=== PATIENT | male | born 1960 ===

== ENCOUNTER 2016-09-30 19:20 | Emergency (ER) | payer OTHER ==
[2016-09-30 19:35] VITALS: TEMP 98.5; O2SAT 100
--- NOTE | 2016-09-30 20:19 | C.PDOC ---
History Of Present Illness 56 y/o male presents to ED with complaints of left shoulder pain that radiates to the neck and is constant for 6 months. Patient reports he fell off stairs six months ago and landed on left shoulder and pain started then and only worsened. Patient states he has not seen a physician for pain because he thought it wasn't serious, but for 1 month pain has increased, not allowing him to sleep. pt not taking naything at home for pain. no numbness or tingling. Time Seen by Provider: 09/30/16 19:43 Chief Complaint (Nursing): Upper Extremity Problem/Injury History Per: Patient History/Exam Limitations: no limitations Onset/Duration Of Symptoms: Days Current Symptoms Are (Timing): Still Present Past Medical History Reviewed: Historical Data, Nursing Documentation, Vital Signs Vital Signs: Last Vital Signs Temp 98.5 F 09/30/16 19:33 Pulse 76 09/30/16 22:05 Resp 18 09/30/16 22:05 BP 128/82 09/30/16 22:05 Pulse Ox 100 09/30/16 23:02 Family History: States: No Known Family Hx - Social History Hx Alcohol Use: Yes Hx Substance Use: No - Immunization History Hx Tetanus Toxoid Vaccination: No Hx Influenza Vaccination: No Hx Pneumococcal Vaccination: No Review Of Systems Constitutional: Negative for: Fever, Chills Cardiovascular: Negative for: Chest Pain Musculoskeletal: Positive for: Neck Pain, Shoulder Pain. Negative for: Back Pain Skin: Negative for: Rash Neurological: Negative for: Weakness, Numbness, Headache Physical Exam - Physical Exam Appears: Non-toxic, Other (uncomfortable) Skin: Normal Color, Warm Head: Atraumatic, Normacephalic Neck: Normal ROM, No Midline Cervical Tenderness Extremity: Tenderness (to proximal left shoulder and medial left elbow/medial epicondyle area), No Deformity, Other (Limited ROM, Unable to adduct and abduct left armpast breast height) Extremity: Left: Bony Point Tenderness (medial epicondyle) Pulses: Left Radial: Normal, Right Radial: Normal Neurological/Psych: Oriented x3, Normal Speech, Normal Cognition, Normal Sensation ED Course And Treatment O2 Sat by Pulse Oximetry: 100 (RA) Pulse Ox Interpretation: Normal Medical Decision Making Medical Decision Making: shoulder xray appear normal, questionable finding on left elbow. will d/c pt with ortho f/u and nsaids. Disposition Counseled Patient/Family Regarding: Diagnosis, Need For Followup, Rx Given - Disposition Referrals: Jairo Sánchez III, MD [Staff Provider] - Disposition: HOME/ ROUTINE Disposition Time: 22:10 Condition: STABLE Additional Instructions: Seguimiento en clnica mdica y ortopedia. Llame para un appoimtment. [place] ibuprofeno para el dolor si es necesario segn lo prescrito. Prescriptions: Ibuprofen [Motrin] 600 mg PO TID #30 tab Instructions: Rotator Cuff Injury (ED), Shoulder Sprain (ED) Forms: Gen Discharge Inst Setswana - Clinical Impression Clinical Impression: Chronic left shoulder pain - PA / [employer] / Resident Statement MD/DO has reviewed & agrees with the documentation as recorded. - Scribe Statement The provider has reviewed the documentation as recorded by the Scribdanni Cristobal All medical record entries made by the Scribe were at my direction and personally dictated by me. I have reviewed the chart and agree that the record accurately reflects my personal performance of the history, physical exam, medical decision making, and the department course for this patient. I have also personally directed, reviewed, and agree with the discharge instructions and disposition.
[2016-09-30 22:30] VITALS: BP 128/82; PULSE 76; RESP 18
--- NOTE | 2016-10-01 13:31 | RAD ---
Left shoulder three views History: Shoulder pain. Comparison: None available. Findings: Mild to moderate narrowing of the glenohumeral joint space. Moderate narrowing of the acromioclavicular joint space with subchondral sclerosis and bony hypertrophy. No evidence of acute displaced fracture or dislocation. Impression: Negative acute. If pain persists, consider MRI.
--- NOTE | 2016-10-01 13:38 | RAD ---
Left elbow three views History: Elbow pain. Comparison: None available. Findings: Productive change at the level of the olecranon process, indeterminate chronicity. Clinical correlation. Question small elbow joint effusion which raises concern for possible nondisplaced osseous injury. Mild spurring of the coronoid process. Impression: Productive change at the level of the olecranon process, indeterminate chronicity. Clinical correlation. Question small elbow joint effusion which raises concern for possible nondisplaced osseous injury. Mild spurring of the coronoid process. If pain persists, consider MRI.
== END 2016-09-30 22:20 | disposition home or self-care (01) ==
LOC: C.ER 19:20
DX: G89.29 Other chronic pain (principal); M25.512 Pain in left shoulder
CPT/HCPCS: 73030; 73080; 96372; 99283; J1885

== ENCOUNTER 2017-07-10 12:13 | Inpatient (IN) | payer OTHER ==
[2017-07-10] MEDS ORDERED: Sodium Chloride 0.9% 1,000 ML IV STA (13:19)
--- NOTE | 2017-07-10 13:21 | C.PDOC ---
History Of Present Illness 56 year old male, with PMHx of gastritis, presents to ED for evaluation of RLQ abdominal pain for the past week. Otherwise, denies n/v/d, back pain, dysuria, urinary frequency, hematuria, fever, chills, or any other complaints at this time. Time Seen by Provider: 07/10/17 13:09 Chief Complaint (Nursing): Abdominal Pain History Per: Patient History/Exam Limitations: no limitations Onset/Duration Of Symptoms: Days Current Symptoms Are (Timing): Still Present Location Of Pain/Discomfort: RLQ Quality Of Discomfort: "Pain" Past Medical History Reviewed: Historical Data, Nursing Documentation, Vital Signs Vital Signs: Last Vital Signs Temp 97.9 F 07/10/17 13:15 Pulse 45 L 07/10/17 16:09 Resp 16 07/10/17 16:09 BP 155/90 H 07/10/17 16:09 Pulse Ox 99 07/10/17 16:41 Family History: States: Unknown Family Hx - Social History Hx Alcohol Use: Yes Hx Substance Use: No - Immunization History Hx Tetanus Toxoid Vaccination: No Hx Influenza Vaccination: No Hx Pneumococcal Vaccination: No Review Of Systems Except As Marked, All Systems Reviewed And Found Negative. Constitutional: Negative for: Fever, Chills Gastrointestinal: Positive for: Abdominal Pain. Negative for: Nausea, Vomiting , Diarrhea, Constipation Genitourinary: Negative for: Dysuria, Frequency, Hematuria Musculoskeletal: Negative for: Back Pain Physical Exam - Physical Exam Additional Physical Exam Comments: Constitutional: No acute distress. Head: Normocephalic. Atraumatic. Eyes: PERRL. ENT: Moist mucous membranes. Neck: Supple. Cardiovascular: Regular rate. Radial pulse 2+ bilaterally. Chest: No tenderness. Respiratory: Clear to auscultation bilaterally. GI: Soft. Nondistended. RLQ tenderness with guarding. Back: No CVA tenderness. Musculoskeletal: No tenderness or swelling of extremities. Skin: No rash. Neurologic: Alert, no focal deficit. ED Course And Treatment - Laboratory Results Result Diagrams: 07/10/17 13:41 07/10/17 13:41 O2 Sat by Pulse Oximetry: 99 Pulse Ox Interpretation: Normal Medical Decision Making Medical Decision Making: Plan: Blood work Urinalysis Urine culture Morphine, IV fluids Reassess and disposition Abd & Pelvis CT: Impression: 1. At the level of the cecum, there is a large lobulated ovoid lesion measuring 5.4 x 3.8 x 5.7 centimeters demonstrating a Hounsfield unit attenuation of 23. This is of uncertain clinical etiology. This may represent a large mucocele of the appendix versus adenocarcinoma of the appendix versus carcinoid tumor of the appendix versus exophytic lesion off the cecum. Appendix is not distinctly visualized separate to this lesion at the level of the cecum. Clinical correlation. 2. 1.6 centimeter subpleural nodule/ lesion seen at the right lung base posteriorly. Clinical correlation. 3. Mild fatty infiltration of the liver. Punctate calcification within the right hepatic lobe. 4. Cholelithiasis. No gross gallbladder wall thickening. Clinical correlation. 5. 9 millimeter midpole low-attenuation lesion in the right kidney demonstrating a Hounsfield unit attenuation of 15, indeterminate, possibly a cyst. No gross calculi or hydronephrosis. 6. Upper pole rounded low-attenuation lesion in the left kidney measuring 7 millimeters demonstrating a Hounsfield unit attenuation of 33, indeterminate. 7. Prominent and heterogeneous prostate measuring up to 6 centimeters. 8. Rectal wall thickening. Underdistention and or mild thickening of the sigmoid colon and rectum. Redundant sigmoid colon. Clinical correlation. Dr. Tyler accepts patient to hospitalist service, will require further evaluation for further management. Disposition - Disposition Disposition: HOSPITALIZED Disposition Time: 17:00 Condition: GUARDED Forms: [facility] (Georgian) - Clinical Impression Clinical Impression: Right lower quadrant abdominal mass - Scribe Statement The provider has reviewed the documentation as recorded by the Scribdanni Tyler All medical record entries made by the Nainibdanni were at my direction and personally dictated by me. I have reviewed the chart and agree that the record accurately reflects my personal performance of the history, physical exam, medical decision making, and the department course for this patient. I have also personally directed, reviewed, and agree with the discharge instructions and disposition.
[2017-07-10] MEDS ORDERED: Morphine 4 MG/ML VIAL ONE ×2 (13:28→18:19)
[2017-07-10 13:50] LABS: BASO % 0.5 % (0.0-2.0); EOS # 0.2 K/uL (0.0-0.7); EOS % 3.5 % (0.0-4.0); HEMOGLOBIN 13.4 g/dL (12.0-18.0); LYMPH # 2.4 K/uL (1.0-4.3); LYMPH % 39.3 % (20.0-40.0); MEAN CELL VOLUME 84.1 fL (80.0-94.0); MEAN CORPUSCULAR HEMOGLOBIN 28.8 pg (27.0-31.0); MEAN CORPUSCULAR HGB CONC 34.3 g/dL (33.0-37.0); MEAN PLATELET VOLUME 8.3 fL (7.2-11.7); MONO # 0.5 K/uL (0.0-0.8); MONO % 8.4 % (0.0-10.0); NEUT % 48.3 % (50.0-75.0); RBC 4.64 Mil/uL (4.40-5.90); RED CELL DISTRIBUTION WIDTH 13.3 % (11.5-14.5); WHITE BLOOD COUNT 6.1 K/uL (4.8-10.8)
[2017-07-10 13:53] LABS: URINE BILIRUBIN NEGATIVE (NEGATIVE); URINE BLOOD NEGATIVE (NEGATIVE); URINE CLARITY Clear (Clear); URINE COLOR Yellow (YELLOW); URINE GLUCOSE (UA) NORMAL (Normal); URINE LEUKOCYTE ESTERASE NEG Leu/uL (Negative); URINE PROTEIN NEGATIVE (NEGATIVE); URINE UROBILINOGEN NORMAL mg/dL (0.2-1.0)
[2017-07-10 14:01] LABS: ALB/GLOB RATIO 0.9 (1.0-2.1); ALBUMIN 4.1 g/dL (3.5-5.0); CALCIUM 9.2 mg/dl (8.6-10.4); GFR AFRICAN-AMERICAN > 60; GFR NON-AFRICAN AMERICAN > 60; LIPASE 190 U/L (23-300)
[2017-07-10 14:02] LABS: ALT/SGPT 20 U/L (21-72); AST/SGOT 32 U/L (17-59); BLOOD UREA NITROGEN 12 mg/dL (9-20)
[2017-07-10] MEDS ORDERED: Iohexol 300 100 ML IJ ONE (14:14)
[2017-07-10] MEDS ORDERED: Iohexol 240 (50 ml) PO ONE (14:21)
[2017-07-10] MEDS ORDERED: Iohexol 240 (50 ml) ONE (14:27)
--- NOTE | 2017-07-10 16:28 | CT ---
CT abdomen and pelvis History: Right lower quadrant abdominal pain. Comparison: None available. Technique: Multiple contiguous axial images were performed through the abdomen and pelvis with the use of intravenous contrast. Subsequently, sagittal and coronal reformatted images were obtained. This CT exam was performed using one or more of the following dose reduction techniques: Automated exposure control, adjustment of the mA and/or kV according to patient size, and/or use of iterative reconstruction technique. Findings: 1.6 centimeter subpleural nodule/ lesion seen at the right lung base posteriorly. Clinical correlation. No pleural or pericardial effusion. Mild fatty infiltration of the liver. Punctate calcification within the right hepatic lobe. Cholelithiasis. No gross gallbladder wall thickening. Spleen is preserved. Adrenal glands are preserved. Pancreas is preserved. Upper abdominal bowel is preserved. Right kidney: 9 millimeter midpole low-attenuation lesion demonstrating a Hounsfield unit attenuation of 15, indeterminate, possibly a cyst. No gross calculi or hydronephrosis. Left Kidney: Upper pole rounded low-attenuation lesion measuring 7 millimeters demonstrating a Hounsfield unit attenuation of 33, indeterminate. Distended urinary bladder. Prominent and heterogeneous prostate measuring up to 6 centimeters. Rectal wall thickening. Underdistention and or mild thickening of the sigmoid colon and rectum. Redundant sigmoid colon. At the level of the cecum, there is a large lobulated ovoid lesion measuring 5.4 x 3.8 x 5.7 centimeters demonstrating a Hounsfield unit attenuation of 13. This is of uncertain clinical etiology. Few shotty para-aortic and inguinal lymph nodes. Punctate bone island in the left devin sacrum. Impression: 1. At the level of the cecum, there is a large lobulated ovoid lesion measuring 5.4 x 3.8 x 5.7 centimeters demonstrating a Hounsfield unit attenuation of 23. This is of uncertain clinical etiology. This may represent a large mucocele of the appendix versus adenocarcinoma of the appendix versus carcinoid tumor of the appendix versus exophytic lesion off the cecum. Appendix is not distinctly visualized separate to this lesion at the level of the cecum. Clinical correlation. 2. 1.6 centimeter subpleural nodule/ lesion seen at the right lung base posteriorly. Clinical correlation. 3. Mild fatty infiltration of the liver. Punctate calcification within the right hepatic lobe. 4. Cholelithiasis. No gross gallbladder wall thickening. Clinical correlation. 5. 9 millimeter midpole low-attenuation lesion in the right kidney demonstrating a Hounsfield unit attenuation of 15, indeterminate, possibly a cyst. No gross calculi or hydronephrosis. 6. Upper pole rounded low-attenuation lesion in the left kidney measuring 7 millimeters demonstrating a Hounsfield unit attenuation of 33, indeterminate. 7. Prominent and heterogeneous prostate measuring up to 6 centimeters. 8. Rectal wall thickening. Underdistention and or mild thickening of the sigmoid colon and rectum. Redundant sigmoid colon. Clinical correlation.
--- NOTE | 2017-07-10 21:36 | CP.PCM.HP ---
<GarcíaValorie - Last Filed: 07/10/17 23:21> History of Present Illness - History of Present Illness History of Present Illness: CC: abdominal pain 56 year old male with past medical history of gastritis presents to the ED today complains of right sided abdominal pain. Patient reports his abdominal first happened 3 months ago and it has been getting worse for the past 1 week. Patient describes the pain as dullness in quality and it is non- radiating. The pain is worse with palpation and exertion and he does not take any pain medication for it. Patient admits to loss of appetite and 4 pounds unintentional weight loss over the course 1 month. Patient also reports to have blood bowel movement started a few days ago. The toilet bowl becomes bright red after. Patient denies having fever, chills, headache, shortness of breath, chest pain, nausea, vomiting or diarrhea. Daughter Preeti Gonzales: [phone] PMD: none PMHx: gastritis PSHx: right ankle surgery 20+ years ago Allergy: none Social: denies tobacco, alcohol or other drug use Family Hx: noncontributory Home meds: none Present on Admission - Present on Admission Any Indicators Present on Admission: No Review of Systems - Constitutional Constitutional: As Per HPI, Weight Loss. absent: Chills, Fever - EENT Eyes: As Per HPI. absent: Blind Spots, Blurred Vision, Discharge Ears: As Per HPI. absent: Decreased Hearing, Dizziness Nose/Mouth/Throat: As Per HPI. absent: Nasal Discharge, Nasal Trauma, Nose Pain - Cardiovascular Cardiovascular: As Per HPI. absent: Chest Pain, Dyspnea, Edema - Respiratory Respiratory: As Per HPI. absent: Cough, Dyspnea, Hemoptysis, Wheezing - Gastrointestinal Gastrointestinal: As Per HPI, Abdominal Pain, Hematochezia. absent: Diarrhea, Nausea, Vomiting - Genitourinary Genitourinary: As Per HPI, Difficulty Urinating - Musculoskeletal Musculoskeletal: As Per HPI. absent: Arthralgias, Deformity, Muscle Cramps - Integumentary Integumentary: As Per HPI. absent: New Lesions, Swelling - Neurological Neurological: As Per HPI. absent: Abnormal Speech, Dizziness, Numbness, Headaches - Psychiatric Psychiatric: As Per HPI. absent: Hallucinations, Visual Hallucinations - Endocrine Endocrine: As Per HPI. absent: Heat Intolorance - Hematologic/Lymphatic Hematologic: As Per HPI Past Patient History - Past Medical History & Family History Past Medical History?: Yes - Past Social History Smoking Status: Never Smoked - MUSCULOSKELETAL/RHEUMATOLOGICAL Hx Falls: Yes - PSYCHIATRIC Hx Substance Use: No - SURGICAL HISTORY Hx Surgeries: Yes Hx Orthopedic Surgery: Yes (right lower) - ANESTHESIA Hx Anesthesia: Yes Hx Anesthesia Reactions: No Hx Malignant Hyperthermia: No Has any member of the family had a problem w/ anesthesia?: No Meds Allergies/Adverse Reactions: Allergies Allergy/AdvReac Type Severity Reaction Status Date / Time No Known Allergies Allergy Verified 07/10/17 13:18 Physical Exam - Constitutional Appears: Non-toxic, No Acute Distress - Head Exam Head Exam: ATRAUMATIC, NORMOCEPHALIC - Eye Exam Eye Exam: Normal appearance Pupil Exam: NORMAL ACCOMODATION - ENT Exam ENT Exam: Mucous Membranes Moist - Neck Exam Neck exam: Positive for: Normal Inspection - Respiratory Exam Respiratory Exam: Clear to Auscultation Bilateral, NORMAL BREATHING PATTERN. absent: Wheezes, Respiratory Distress - Cardiovascular Exam Cardiovascular Exam: REGULAR RHYTHM, +S1, +S2 - GI/Abdominal Exam GI & Abdominal Exam: Soft, Tenderness (RUQ and RLQ). absent: Distended, Hernia , Rebound Additional comments: Negative Oliveira's sign mildly asymmetric (RLQ fullness) - Rectal Exam Rectal Exam: absent: Bloody Stool, Hemorrhoids Additional comments: normal size prostate, non tender - Extremities Exam Extremities exam: Negative for: pedal edema, tenderness - Neurological Exam Neurological exam: Alert, Oriented x3 - Psychiatric Exam Psychiatric exam: Normal Affect, Normal Mood - Skin Skin Exam: Dry, Intact, Warm Results - Vital Signs Recent Vital Signs: Last Vital Signs Temp 97.9 F 07/10/17 13:15 Pulse 51 L 07/10/17 18:13 Resp 16 07/10/17 18:13 BP 154/93 H 07/10/17 18:13 Pulse Ox 99 07/10/17 18:13 - Labs Result Diagrams: 07/10/17 13:41 07/10/17 13:41 Labs: Laboratory Results - last 24 hr 07/10/17 07/10/17 07/10/17 13:41 13:41 13:41 WBC 6.1 RBC 4.64 Hgb 13.4 Hct 39.0 MCV 84.1 MCH 28.8 MCHC 34.3 RDW 13.3 Plt Count 236 MPV 8.3 Neut % (Auto) 48.3 L Lymph % (Auto) 39.3 [place] % (Auto) 8.4 Eos % (Auto) 3.5 Baso % (Auto) 0.5 Neut # (Auto) 3.0 Lymph # (Auto) 2.4 [place] # (Auto) 0.5 Eos # (Auto) 0.2 Baso # (Auto) 0.0 Sodium 139 Potassium 4.4 Chloride 103 Carbon Dioxide 24 Anion Gap 17 BUN 12 Creatinine 0.9 Est GFR ( Amer) > 60 Est GFR (Non-Af Amer) > 60 Random Glucose 84 Calcium 9.2 Total Bilirubin 0.7 AST 32 ALT 20 L Alkaline Phosphatase 50 Total Protein 8.4 H Albumin 4.1 Globulin 4.4 H Albumin/Globulin Ratio 0.9 L Lipase 190 Urine Color Yellow Urine Clarity Clear Urine pH 5.0 Ur Specific [place] 1.018 Urine Protein Negative Urine Glucose (UA) Normal Urine Ketones Negative Urine Blood Negative Urine Nitrate Negative Urine Bilirubin Negative Urine Urobilinogen Normal Ur Leukocyte Esterase Neg Urine WBC (Auto) < 1 Assessment & Plan - Assessment and Plan (Free Text) Assessment: Right lower quadrant abdominal pain -CT showed large lobulated ovoid lesion of unknown etiology at cecum. Large mucocele of the appendix vs adenocarcinoma of the appendix vs carcinoid tumor ( see report) -Surgery consulted, help appreciated -Toradol for pain -Zofran for nausea Bloody bowel movement -Negative ELIJAH -H/H stable -GI consulted, help appreciated Right lung subpleural nodule -CT shows 1.6 centimeter subpleural nodule/ lesion seen at the right lung base posteriorly -Consider IR consult for biopsy Enlarge prostate -Reports to have urinary hesitancy -CT showed Prominent and heterogeneous prostate measuring up to 6 centimeters -Urology consulted, help appreciated Prophylactic measure -Lovenox -Protonix -Zofran <Onel Gaines P - Last Filed: 07/11/17 08:10> Results - Vital Signs Recent Vital Signs: Last Vital Signs Temp 98.2 F 07/11/17 07:16 Pulse 60 07/11/17 07:16 Resp 20 07/11/17 07:16 BP 128/82 07/11/17 07:16 Pulse Ox 98 07/11/17 07:16 - Labs Result Diagrams: 07/11/17 06:18 04/09/18 06:18 Labs: Laboratory Results - last 24 hr 07/10/17 07/10/17 07/10/17 13:41 13:41 13:41 WBC 6.1 RBC 4.64 Hgb 13.4 Hct 39.0 MCV 84.1 MCH 28.8 MCHC 34.3 RDW 13.3 Plt Count 236 MPV 8.3 Neut % (Auto) 48.3 L Lymph % (Auto) 39.3 [place] % (Auto) 8.4 Eos % (Auto) 3.5 Baso % (Auto) 0.5 Neut # (Auto) 3.0 Lymph # (Auto) 2.4 [place] # (Auto) 0.5 Eos # (Auto) 0.2 Baso # (Auto) 0.0 Sodium 139 Potassium 4.4 Chloride 103 Carbon Dioxide 24 Anion Gap 17 BUN 12 Creatinine 0.9 Est GFR ( Amer) > 60 Est GFR (Non-Af Amer) > 60 Random Glucose 84 Calcium 9.2 Total Bilirubin 0.7 AST 32 ALT 20 L Alkaline Phosphatase 50 Total Protein 8.4 H Albumin 4.1 Globulin 4.4 H Albumin/Globulin Ratio 0.9 L Lipase 190 Urine Color Yellow Urine Clarity Clear Urine pH 5.0 Ur Specific [place] 1.018 Urine Protein Negative Urine Glucose (UA) Normal Urine Ketones Negative Urine Blood Negative Urine Nitrate Negative Urine Bilirubin Negative Urine Urobilinogen Normal Ur Leukocyte Esterase Neg Urine WBC (Auto) < 1 07/11/17 07/11/17 06:18 06:18 WBC 6.0 RBC 4.68 Hgb 13.5 Hct 39.4 MCV 84.2 MCH 28.9 MCHC 34.3 RDW 13.3 Plt Count 233 MPV 8.3 Neut % (Auto) 53.9 Lymph % (Auto) 35.2 [place] % (Auto) 7.2 Eos % (Auto) 3.2 Baso % (Auto) 0.5 Neut # (Auto) 3.2 Lymph # (Auto) 2.1 [place] # (Auto) 0.4 Eos # (Auto) 0.2 Baso # (Auto) 0.0 Sodium 141 Potassium 4.1 Chloride 103 Carbon Dioxide 26 Anion Gap 16 BUN 10 Creatinine 0.9 Est GFR ( Amer) > 60 Est GFR (Non-Af Amer) > 60 Random Glucose 96 Calcium 8.8 Total Bilirubin 0.5 AST 25 ALT 24 Alkaline Phosphatase 56 Total Protein 7.9 Albumin 3.9 Globulin 4.0 H Albumin/Globulin Ratio 1.0 Lipase Urine Color Urine Clarity Urine pH Ur Specific [place] Urine Protein Urine Glucose (UA) Urine Ketones Urine Blood Urine Nitrate Urine Bilirubin Urine Urobilinogen Ur Leukocyte Esterase Urine WBC (Auto) Attending/Attestation - Attestation I have personally seen and examined this patient.: Yes I have fully participated in the care of the patient.: Yes I have reviewed all pertinent clinical information: Yes Notes (Text): 07/11/17 08:01 Patient has tender mucouid cyst close to ceacum, which needs evaluation, and relief, he also has following finding, para aortic lymph nodes, enlarged heterogenous prostate with symptoms of increased frequency and nocturia, he also has pleural based nodule or tumor on right side. Plan/recommendation Surgical removal of mucoid cyst rather IR drainage as potential of it being malignant due to presence of para aortic ln Urology to eval heterogenous prostate probably with out patient biopsy, again due to presence of para aortic ln IR for biopsy of right pleural based nodule/tumor.
--- NOTE | 2017-07-10 21:50 | CP.PCM.CON ---
History of Present Illness - History of Present Illness History of Present Illness: General Surgery - Dr. Little Pt is a 56yo M from [facility] w/ hx of gastritis, who presented to ED today with complaints of RLQ pain x1week. Pt states he noticed a dull pain the right lower abdomen which has slowly become more bothersome over the past 1 week , 09/11, non-radiating. He denies any exacerbating or alleviating factors. Pt admits to a recent decrease in appetite over the past 1-2 months, and small amount of blood in the stool. He denies any other symptoms including Nausea, Vomiting, Diarrhea, Constipation, Fevers, Chills, Chest pain, Dysuria, Hematuria. He also admits to noticing recent dyspnea with exertion. PMH: Gastritis (dx by endoscopy 10yrs ago in ) PSH: R foot surgery (for Fx) No Meds NKDA Denies any relevant family history Denies Smoking or ETOH In ED pt was noted to be bradycardic 45-50s, Vitals otherwise stable and WNL. Labs were unremarkable. He underwent a CT abdomen/pelvis which showed an approx. 5x6cm ovoid lesion off the cecum of uncertain etiology, additional findings include a 1.6cm subpleural nodule at the R lung base, Prominent heterogenous prostate, sub-centimeter lesions in the kidneys B/L, and Rectal wall thickening. Review of Systems - Review of Systems All systems: reviewed and no additional remarkable complaints except (as per HPI ) Past Patient History - Past Medical History & Family History Past Medical History?: Yes - Past Social History Smoking Status: Never Smoked - MUSCULOSKELETAL/RHEUMATOLOGICAL Hx Falls: Yes - PSYCHIATRIC Hx Substance Use: No - SURGICAL HISTORY Hx Surgeries: Yes Hx Orthopedic Surgery: Yes (right lower) - ANESTHESIA Hx Anesthesia: Yes Hx Anesthesia Reactions: No Hx Malignant Hyperthermia: No Has any member of the family had a problem w/ anesthesia?: No Meds Allergies/Adverse Reactions: Allergies Allergy/AdvReac Type Severity Reaction Status Date / Time No Known Allergies Allergy Verified 07/10/17 13:18 - Medications Medications: Current Medications Enoxaparin Sodium (Lovenox) 40 mg SC DAILY [facility] Ketorolac Tromethamine (Toradol) 15 mg IVP Q6 PRN PRN Reason: Pain, moderate (4-7) Ondansetron HCl (Zofran Inj) 4 mg IVP DAILY@ONCE PRN PRN Reason: Nausea/Vomiting Pantoprazole Sodium (Protonix Ec Tab) 40 mg PO DAILY [facility] Pneumococcal Polyvalent Vaccine (Pneumovax 23 Vaccine) 0.5 ml IM .ONCE ONE Stop: 07/12/17 10:01 Physical Exam - Constitutional Appears: No Acute Distress - Head Exam Head Exam: ATRAUMATIC, NORMAL INSPECTION, NORMOCEPHALIC - Eye Exam Eye Exam: Normal appearance - Respiratory Exam Respiratory Exam: NORMAL BREATHING PATTERN. absent: Respiratory Distress - Cardiovascular Exam Cardiovascular Exam: REGULAR RHYTHM - GI/Abdominal Exam GI & Abdominal Exam: Guarding (mild), Soft, Tenderness (RLQ). absent: Distended , Hernia, Rebound, Rigid - Extremities Exam Extremities exam: Positive for: normal inspection. Negative for: pedal edema - Neurological Exam Neurological exam: Alert, Oriented x3 - Psychiatric Exam Psychiatric exam: Normal Affect, Normal Mood - Skin Skin Exam: Dry, Intact Results - Vital Signs Recent Vital Signs: Last Vital Signs Temp 97.9 F 07/10/17 13:15 Pulse 51 L 07/10/17 18:13 Resp 16 07/10/17 18:13 BP 154/93 H 07/10/17 18:13 Pulse Ox 99 07/10/17 18:13 - Labs Result Diagrams: 07/10/17 13:41 07/10/17 13:41 Labs: Laboratory Results - last 24 hr 07/10/17 07/10/17 07/10/17 13:41 13:41 13:41 WBC 6.1 RBC 4.64 Hgb 13.4 Hct 39.0 MCV 84.1 MCH 28.8 MCHC 34.3 RDW 13.3 Plt Count 236 MPV 8.3 Neut % (Auto) 48.3 L Lymph % (Auto) 39.3 [place] % (Auto) 8.4 Eos % (Auto) 3.5 Baso % (Auto) 0.5 Neut # (Auto) 3.0 Lymph # (Auto) 2.4 [place] # (Auto) 0.5 Eos # (Auto) 0.2 Baso # (Auto) 0.0 Sodium 139 Potassium 4.4 Chloride 103 Carbon Dioxide 24 Anion Gap 17 BUN 12 Creatinine 0.9 Est GFR ( Amer) > 60 Est GFR (Non-Af Amer) > 60 Random Glucose 84 Calcium 9.2 Total Bilirubin 0.7 AST 32 ALT 20 L Alkaline Phosphatase 50 Total Protein 8.4 H Albumin 4.1 Globulin 4.4 H Albumin/Globulin Ratio 0.9 L Lipase 190 Urine Color Yellow Urine Clarity Clear Urine pH 5.0 Ur Specific [place] 1.018 Urine Protein Negative Urine Glucose (UA) Normal Urine Ketones Negative Urine Blood Negative Urine Nitrate Negative Urine Bilirubin Negative Urine Urobilinogen Normal Ur Leukocyte Esterase Neg Urine WBC (Auto) < 1 - Imaging and Cardiology CT scan - abdomen Status: Image reviewed by me, Report reviewed by me Assessment & Plan - Assessment and Plan (Free Text) Assessment: 56 yo M w/ RLQ pain x1 week and CT findings of ovoid lesion at cecum with addtl findings as described above -Recc. GI evaluation for Colonoscopy -Consider CT Chest to further evaluate nodules -Surgical plans pending further initial work-up -Will follow with you, thank you for this interesting consult DW Dr. Sidney Mason PGY3
[2017-07-11 06:26] LABS: BASO % 0.5 % (0.0-2.0); EOS # 0.2 K/uL (0.0-0.7); EOS % 3.2 % (0.0-4.0); HEMOGLOBIN 13.5 g/dL (12.0-18.0); LYMPH # 2.1 K/uL (1.0-4.3); LYMPH % 35.2 % (20.0-40.0); MEAN CELL VOLUME 84.2 fL (80.0-94.0); MEAN CORPUSCULAR HEMOGLOBIN 28.9 pg (27.0-31.0); MEAN CORPUSCULAR HGB CONC 34.3 g/dL (33.0-37.0); MEAN PLATELET VOLUME 8.3 fL (7.2-11.7); MONO # 0.4 K/uL (0.0-0.8); MONO % 7.2 % (0.0-10.0); NEUT # 3.2 K/uL (1.8-7.0); NEUT % 53.9 % (50.0-75.0); NRBC % 0.1 % (0.0-2.0); RBC 4.68 Mil/uL (4.40-5.90); RED CELL DISTRIBUTION WIDTH 13.3 % (11.5-14.5)
[2017-07-11 06:42] LABS: ALBUMIN 3.9 g/dL (3.5-5.0); ALT/SGPT 24 U/L (21-72); AST/SGOT 25 U/L (17-59); BLOOD UREA NITROGEN 10 mg/dL (9-20); CALCIUM 8.8 mg/dl (8.6-10.4); GFR AFRICAN-AMERICAN > 60; GFR NON-AFRICAN AMERICAN > 60
--- NOTE | 2017-07-11 07:30 | CP.PCM.CON ---
<Stone Joseph - Last Filed: 07/11/17 10:59> History of Present Illness - History of Present Illness History of Present Illness: PGY5 GI Fellow Consult Note Patient is a 56yo male with PMHx significant for gastritis who presented to the ED with right sided abdominal pain. The patient states that pain started in the RLQ one week ago while he was at work. Pain has been constant and became much more severe, stabbing in nature yesterday prompting him to come to the ED. Admits to decreased appetite and 3-4 pound weight loss in the last month. Admits to development of loose, watery stool yesterday prior to arrival. He denies nausea, vomiting, fever, chills, constipation, rectal bleeding. CT with PO/IV contrast performed in the ED shows a 54.x3.8x5.7cm lesions adjacent to the cecum which cannot be completely identified on imaging as appendicitis versus mass lesion or mucocele. Currently, patient continued to complain of dull , aching pain in the RLQ. PMHx: Gastritis PSHx: Right ankle fracture repair FHx: Discussed with patient and he denies any significant family history Social: Denies tobacco, EtOH or illicit drug use Endo: EGD/Colonoscopy in [facility] approximately 15 years ago - gastritis 12 system ROS performed and negative except where stated. Past Patient History - Past Medical History & Family History Past Medical History?: Yes - Past Social History Smoking Status: Never Smoked - MUSCULOSKELETAL/RHEUMATOLOGICAL Hx Falls: Yes - PSYCHIATRIC Hx Substance Use: No - SURGICAL HISTORY Hx Surgeries: Yes Hx Orthopedic Surgery: Yes (right lower) - ANESTHESIA Hx Anesthesia: Yes Hx Anesthesia Reactions: No Hx Malignant Hyperthermia: No Has any member of the family had a problem w/ anesthesia?: No Meds Allergies/Adverse Reactions: Allergies Allergy/AdvReac Type Severity Reaction Status Date / Time No Known Allergies Allergy Verified 07/10/17 13:18 - Medications Medications: Current Medications Enoxaparin Sodium (Lovenox) 40 mg SC DAILY [facility] Ketorolac Tromethamine (Toradol) 15 mg IVP Q6 PRN PRN Reason: Pain, moderate (4-7) Last Admin: 07/11/17 05:58 Dose: 15 mg Ondansetron HCl (Zofran Inj) 4 mg IVP Q6 PRN PRN Reason: Nausea/Vomiting Pantoprazole Sodium (Protonix Ec Tab) 40 mg PO DAILY [facility] Pneumococcal Polyvalent Vaccine (Pneumovax 23 Vaccine) 0.5 ml IM .ONCE ONE Stop: 07/12/17 10:01 Physical Exam - Constitutional Appears: Non-toxic, No Acute Distress - Eye Exam Eye Exam: EOMI, PERRL - ENT Exam ENT Exam: Mucous Membranes Moist - Respiratory Exam Respiratory Exam: Clear to Auscultation Bilateral. absent: Rales, Rhonchi, Wheezes - Cardiovascular Exam Cardiovascular Exam: RRR, +S1, +S2 - GI/Abdominal Exam GI & Abdominal Exam: Mass (RLQ), Normal Bowel Sounds, Soft, Tenderness (RLQ). absent: Distended, Firm, Guarding, Organomegaly, Rebound, Rigid - Extremities Exam Extremities exam: Positive for: normal inspection. Negative for: pedal edema - Neurological Exam Neurological exam: Alert, Oriented x3 - Psychiatric Exam Psychiatric exam: Normal Affect, Normal Mood - Skin Skin Exam: Dry, Warm Results - Vital Signs Recent Vital Signs: Last Vital Signs Temp 98.2 F 07/11/17 07:16 Pulse 60 07/11/17 07:16 Resp 20 07/11/17 07:16 BP 128/82 07/11/17 07:16 Pulse Ox 98 07/11/17 07:16 - Labs Result Diagrams: 07/11/17 06:18 07/11/17 06:18 Labs: Laboratory Results - last 24 hr 07/10/17 07/10/17 07/10/17 13:41 13:41 13:41 WBC 6.1 RBC 4.64 Hgb 13.4 Hct 39.0 MCV 84.1 MCH 28.8 MCHC 34.3 RDW 13.3 Plt Count 236 MPV 8.3 Neut % (Auto) 48.3 L Lymph % (Auto) 39.3 [place] % (Auto) 8.4 Eos % (Auto) 3.5 Baso % (Auto) 0.5 Neut # (Auto) 3.0 Lymph # (Auto) 2.4 [place] # (Auto) 0.5 Eos # (Auto) 0.2 Baso # (Auto) 0.0 Sodium 139 Potassium 4.4 Chloride 103 Carbon Dioxide 24 Anion Gap 17 BUN 12 Creatinine 0.9 Est GFR ( Amer) > 60 Est GFR (Non-Af Amer) > 60 Random Glucose 84 Calcium 9.2 Total Bilirubin 0.7 AST 32 ALT 20 L Alkaline Phosphatase 50 Total Protein 8.4 H Albumin 4.1 Globulin 4.4 H Albumin/Globulin Ratio 0.9 L Lipase 190 Urine Color Yellow Urine Clarity Clear Urine pH 5.0 Ur Specific [place] 1.018 Urine Protein Negative Urine Glucose (UA) Normal Urine Ketones Negative Urine Blood Negative Urine Nitrate Negative Urine Bilirubin Negative Urine Urobilinogen Normal Ur Leukocyte Esterase Neg Urine WBC (Auto) < 1 07/11/17 07/11/17 06:18 06:18 WBC 6.0 RBC 4.68 Hgb 13.5 Hct 39.4 MCV 84.2 MCH 28.9 MCHC 34.3 RDW 13.3 Plt Count 233 MPV 8.3 Neut % (Auto) 53.9 Lymph % (Auto) 35.2 [place] % (Auto) 7.2 Eos % (Auto) 3.2 Baso % (Auto) 0.5 Neut # (Auto) 3.2 Lymph # (Auto) 2.1 [place] # (Auto) 0.4 Eos # (Auto) 0.2 Baso # (Auto) 0.0 Sodium 141 Potassium 4.1 Chloride 103 Carbon Dioxide 26 Anion Gap 16 BUN 10 Creatinine 0.9 Est GFR ( Amer) > 60 Est GFR (Non-Af Amer) > 60 Random Glucose 96 Calcium 8.8 Total Bilirubin 0.5 AST 25 ALT 24 Alkaline Phosphatase 56 Total Protein 7.9 Albumin 3.9 Globulin 4.0 H Albumin/Globulin Ratio 1.0 Lipase Urine Color Urine Clarity Urine pH Ur Specific [place] Urine Protein Urine Glucose (UA) Urine Ketones Urine Blood Urine Nitrate Urine Bilirubin Urine Urobilinogen Ur Leukocyte Esterase Urine WBC (Auto) Assessment & Plan - Assessment and Plan (Free Text) Assessment: Patient is a 56yo male with PMHx significant for gastritis who presented to the ED with right sided abdominal pain. -RLQ abdominal pain with mass-like lesion noted on CT -H/O gastritis Plan: -Consider colonoscopy for tomorrow to evaluate rectum and cecum which appear abnormal in cross-sectional imaging; no obvious intraluminal lesion -Liquid diet today -NPO past MN -Golytely/Dulcolax prep to begin this afternoon -Analgesia per primary service -H2 spike PRN - Date & Time Date: 07/11/17 Time: 07:10 <Pati Betts - Last Filed: 07/11/17 13:47> Meds - Medications Medications: Current Medications Enoxaparin Sodium (Lovenox) 40 mg SC DAILY [facility] Last Admin: 07/11/17 09:52 Dose: 40 mg Ketorolac Tromethamine (Toradol) 15 mg IVP Q6 PRN PRN Reason: Pain, moderate (4-7) Last Admin: 07/11/17 12:01 Dose: 15 mg Ondansetron HCl (Zofran Inj) 4 mg IVP Q6 PRN PRN Reason: Nausea/Vomiting Pantoprazole Sodium (Protonix Ec Tab) 40 mg PO DAILY [facility] Last Admin: 07/11/17 09:52 Dose: 40 mg Pneumococcal Polyvalent Vaccine (Pneumovax 23 Vaccine) 0.5 ml IM .ONCE ONE Stop: 07/12/17 10:01 Results - Vital Signs Recent Vital Signs: Last Vital Signs Temp 98.2 F 07/11/17 07:16 Pulse 60 07/11/17 07:16 Resp 20 07/11/17 07:16 BP 128/82 07/11/17 07:16 Pulse Ox 98 07/11/17 07:16 - Labs Result Diagrams: 07/11/17 06:18 07/11/17 06:18 Labs: Laboratory Results - last 24 hr 07/10/17 07/10/17 07/10/17 13:41 13:41 13:41 WBC 6.1 RBC 4.64 Hgb 13.4 Hct 39.0 MCV 84.1 MCH 28.8 MCHC 34.3 RDW 13.3 Plt Count 236 MPV 8.3 Neut % (Auto) 48.3 L Lymph % (Auto) 39.3 [place] % (Auto) 8.4 Eos % (Auto) 3.5 Baso % (Auto) 0.5 Neut # (Auto) 3.0 Lymph # (Auto) 2.4 [place] # (Auto) 0.5 Eos # (Auto) 0.2 Baso # (Auto) 0.0 Sodium 139 Potassium 4.4 Chloride 103 Carbon Dioxide 24 Anion Gap 17 BUN 12 Creatinine 0.9 Est GFR ( Amer) > 60 Est GFR (Non-Af Amer) > 60 Random Glucose 84 Calcium 9.2 Total Bilirubin 0.7 AST 32 ALT 20 L Alkaline Phosphatase 50 Total Protein 8.4 H Albumin 4.1 Globulin 4.4 H Albumin/Globulin Ratio 0.9 L Lipase 190 Urine Color Yellow Urine Clarity Clear Urine pH 5.0 Ur Specific [place] 1.018 Urine Protein Negative Urine Glucose (UA) Normal Urine Ketones Negative Urine Blood Negative Urine Nitrate Negative Urine Bilirubin Negative Urine Urobilinogen Normal Ur Leukocyte Esterase Neg Urine WBC (Auto) < 1 07/11/17 07/11/17 06:18 06:18 WBC 6.0 RBC 4.68 Hgb 13.5 Hct 39.4 MCV 84.2 MCH 28.9 MCHC 34.3 RDW 13.3 Plt Count 233 MPV 8.3 Neut % (Auto) 53.9 Lymph % (Auto) 35.2 [place] % (Auto) 7.2 Eos % (Auto) 3.2 Baso % (Auto) 0.5 Neut # (Auto) 3.2 Lymph # (Auto) 2.1 [place] # (Auto) 0.4 Eos # (Auto) 0.2 Baso # (Auto) 0.0 Sodium 141 Potassium 4.1 Chloride 103 Carbon Dioxide 26 Anion Gap 16 BUN 10 Creatinine 0.9 Est GFR ( Amer) > 60 Est GFR (Non-Af Amer) > 60 Random Glucose 96 Calcium 8.8 Total Bilirubin 0.5 AST 25 ALT 24 Alkaline Phosphatase 56 Total Protein 7.9 Albumin 3.9 Globulin 4.0 H Albumin/Globulin Ratio 1.0 Lipase Urine Color Urine Clarity Urine pH Ur Specific [place] Urine Protein Urine Glucose (UA) Urine Ketones Urine Blood Urine Nitrate Urine Bilirubin Urine Urobilinogen Ur Leukocyte Esterase Urine WBC (Auto) Attending/Attestation - Attestation I have personally seen and examined this patient.: Yes I have fully participated in the care of the patient.: Yes I have reviewed all pertinent clinical information: Yes Notes (Text): 07/11/17 13:45 This is a 56 year old male with PMHx significant for gastritis who presented to the ED with right sided abdominal pain worsening in past few days. He denies change in bowel habits or fever, chills. CTAP with a mass like lesion adjacent to cecum. Schedule for colonoscopy in am with Dr Jacques and place on liquid diet today. NPO past midnight and start stool softeners
[2017-07-11] MEDS: Pantoprazole 40 mg EC Tab PO SCH (09:52)
[2017-07-11] MEDS: Enoxaparin 40 mg Syringe SC SCH (09:52)
--- NOTE | 2017-07-11 10:55 | CP.PCM.PN ---
Subjective - Date & Time of Evaluation Date of Evaluation: 07/11/17 Time of Evaluation: 07:00 - Subjective Subjective: Surgery: Dr. Little Pt seen and examined. No acute overnight events. Pt states he feels ok but did have RLQ pain overnight which comes and goes. Admits to tolerating his diet and having BMs. Denies N/V, F/C. Objective - Vital Signs/Intake and Output Vital Signs (last 24 hours): Temp Pulse Resp BP Pulse Ox 98.2 F 60 20 128/82 98 07/11/17 07:16 07/11/17 07:16 07/11/17 07:16 07/11/17 07:16 07/11/17 07:16 Intake and Output: 07/11/17 07/11/17 06:59 18:59 Intake Total 320 Balance 320 - Medications Medications: Current Medications Enoxaparin Sodium (Lovenox) 40 mg SC DAILY [facility] Last Admin: 07/11/17 09:52 Dose: 40 mg Ketorolac Tromethamine (Toradol) 15 mg IVP Q6 PRN PRN Reason: Pain, moderate (4-7) Last Admin: 07/11/17 05:58 Dose: 15 mg Ondansetron HCl (Zofran Inj) 4 mg IVP Q6 PRN PRN Reason: Nausea/Vomiting Pantoprazole Sodium (Protonix Ec Tab) 40 mg PO DAILY [facility] Last Admin: 07/11/17 09:52 Dose: 40 mg Pneumococcal Polyvalent Vaccine (Pneumovax 23 Vaccine) 0.5 ml IM .ONCE ONE Stop: 07/12/17 10:01 - Labs Labs: 07/11/17 06:18 07/11/17 06:18 - Constitutional Appears: Well, No Acute Distress - Head Exam Head Exam: ATRAUMATIC, NORMOCEPHALIC - ENT Exam ENT Exam: Mucous Membranes Moist - Respiratory Exam Respiratory Exam: NORMAL BREATHING PATTERN - Cardiovascular Exam Cardiovascular Exam: RRR - GI/Abdominal Exam GI & Abdominal Exam: Soft, Tenderness (RLQ ). absent: Distended - Neurological Exam Neurological Exam: Alert, Awake, Oriented x3 - Skin Skin Exam: Dry, Warm Assessment and Plan - Assessment and Plan (Free Text) Assessment: 56M with questionable cecal vs appendiceal mass as seen on CT Plan: - plan for colonoscopy tomorrow per GI - will f/u on findings - further surgical planning pending colonoscopy results as pt is not obstructed & needs full work up prior to surgery - will cont to follow - d/w Dr. Sidney Varela, PGY-3
[2017-07-11] MEDS ORDERED: Bisacodyl 5mg EC Tab PO ONE (11:00)
[2017-07-11] MEDS ORDERED: Peg-Electrolyte Oral Soln 4L (Golytely) PO ONE (12:00)
--- NOTE | 2017-07-11 17:11 | CP.PCM.PN ---
Subjective - Date & Time of Evaluation Date of Evaluation: 07/11/17 Time of Evaluation: 08:21 - Subjective Subjective: PGY1 Medicine Note for Dr. Dow Patient seen and examined at bedside this morning. No acute events over night. Patient states his abdominal pain is improving but he still has mild pain in the right lower quadrant. He is tolerating his liquid diet, which does not exacerbate his abdominal pain. Denies fevers, chills, nausea, vomiting, diarrhea , constipation, chest pain, shortness of breath, headaches. Objective - Vital Signs/Intake and Output Vital Signs (last 24 hours): Temp Pulse Resp BP Pulse Ox 97.9 F 57 L 20 129/86 98 07/11/17 15:00 07/11/17 15:00 07/11/17 15:00 07/11/17 15:00 07/11/17 15:00 Intake and Output: 07/11/17 07/11/17 06:59 18:59 Intake Total 1820 Balance 1820 - Medications Medications: Current Medications Enoxaparin Sodium (Lovenox) 40 mg SC DAILY [facility] Last Admin: 07/11/17 09:52 Dose: 40 mg Ketorolac Tromethamine (Toradol) 15 mg IVP Q6 PRN PRN Reason: Pain, moderate (4-7) Last Admin: 07/11/17 12:01 Dose: 15 mg Ondansetron HCl (Zofran Inj) 4 mg IVP Q6 PRN PRN Reason: Nausea/Vomiting Pantoprazole Sodium (Protonix Ec Tab) 40 mg PO DAILY [facility] Last Admin: 07/11/17 09:52 Dose: 40 mg Pneumococcal Polyvalent Vaccine (Pneumovax 23 Vaccine) 0.5 ml IM .ONCE ONE Stop: 07/12/17 10:01 - Labs Labs: 07/11/17 06:18 07/11/17 06:18 - Constitutional Appears: Non-toxic, No Acute Distress - Head Exam Head Exam: ATRAUMATIC, NORMOCEPHALIC - Eye Exam Eye Exam: EOMI - ENT Exam ENT Exam: Mucous Membranes Moist - Neck Exam Neck Exam: absent: Lymphadenopathy - Respiratory Exam Respiratory Exam: Clear to Ausculation Bilateral, Respiratory Distress, NORMAL BREATHING PATTERN. absent: Accessory Muscle Use, Rales, Rhonchi, Wheezes - Cardiovascular Exam Cardiovascular Exam: REGULAR RHYTHM, +S1, +S2 - GI/Abdominal Exam GI & Abdominal Exam: Guarding (RLQ), Soft, Tenderness (RLQ is TTP), Normal Bowel Sounds. absent: Distended, Firm, Rigid, Organomegaly, Rebound - Extremities Exam Extremities Exam: absent: Calf Tenderness, Pedal Edema - Neurological Exam Neurological Exam: Alert, Awake, CN II-XII Intact, Oriented x3 Neuro motor strength exam: Left Upper Extremity: 5, Right Upper Extremity: 5, Left Lower Extremity: 5, Right Lower Extremity: 5 - Psychiatric Exam Psychiatric exam: Normal Affect, Normal Mood - Skin Skin Exam: Dry, Warm Assessment and Plan - Assessment and Plan (Free Text) Plan: Right lower quadrant abdominal pain -Surgery consulted, help appreciated -GI consulted, help appreciated * patient NPO after midnight for colonoscopy tomorrow. -CT showed large lobulated ovoid lesion of unknown etiology at cecum. 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 Victor M Knowles Aneudy PGY1
[2017-07-12 06:25] LABS: BASO % 0.3 % (0.0-2.0); EOS # 0.2 K/uL (0.0-0.7); EOS % 3.7 % (0.0-4.0); HEMOGLOBIN 13.6 g/dL (12.0-18.0); LYMPH % 40.2 % (20.0-40.0); MEAN CELL VOLUME 82.8 fL (80.0-94.0); MEAN CORPUSCULAR HEMOGLOBIN 28.5 pg (27.0-31.0); MEAN CORPUSCULAR HGB CONC 34.4 g/dL (33.0-37.0); MEAN PLATELET VOLUME 8.3 fL (7.2-11.7); MONO # 0.4 K/uL (0.0-0.8); MONO % 8.4 % (0.0-10.0); NEUT # 2.4 K/uL (1.8-7.0); NEUT % 47.4 % (50.0-75.0); RBC 4.78 Mil/uL (4.40-5.90); RED CELL DISTRIBUTION WIDTH 13.2 % (11.5-14.5)
[2017-07-12 06:30] LABS: INR 1.1; PROTHROMBIN TIME 12.2 SECONDS (9.7-12.2)
[2017-07-12 06:41] LABS: ALB/GLOB RATIO 0.9 (1.0-2.1); ALBUMIN 3.8 g/dL (3.5-5.0); ALT/SGPT 25 U/L (21-72); AST/SGOT 29 U/L (17-59); BLOOD UREA NITROGEN 12 mg/dL (9-20); CALCIUM 9.1 mg/dl (8.6-10.4); GFR AFRICAN-AMERICAN > 60; GFR NON-AFRICAN AMERICAN > 60
[2017-07-12] MEDS ORDERED: Propofol 10 mg/ml Inj (20 ML) ONE ×2 (07:22→13:42)
--- NOTE | 2017-07-12 07:34 | CP.PCM.PN ---
Subjective - Date & Time of Evaluation Date of Evaluation: 07/12/17 Time of Evaluation: 07:00 - Subjective Subjective: PGY1- Dr. Dow's Service Patient seen and examined at bedside and is in no acute distress. Patient says he has a headache in the front that has been bothering him off and on for the past 2 days. Patient also admits to mild RLQ pain. Patient had multiple episodes of diarrhea yesterday as he did the bowel prep for colonoscopy today. Patient denies any shortness of breath, chest pain, abdominal pain, nausea, vomiting. Objective - Vital Signs/Intake and Output Vital Signs (last 24 hours): Temp Pulse Resp BP Pulse Ox 98.3 F 54 L 20 134/87 100 07/12/17 07:18 07/12/17 07:18 07/12/17 07:18 07/12/17 07:18 07/12/17 07:18 Intake and Output: 07/12/17 07/12/17 06:59 18:59 Intake Total 0 Balance 0 - Medications Medications: Current Medications Enoxaparin Sodium (Lovenox) 40 mg SC DAILY [facility] Last Admin: 07/11/17 09:52 Dose: 40 mg Ketorolac Tromethamine (Toradol) 15 mg IVP Q6 PRN PRN Reason: Pain, moderate (4-7) Last Admin: 07/11/17 12:01 Dose: 15 mg Ondansetron HCl (Zofran Inj) 4 mg IVP Q6 PRN PRN Reason: Nausea/Vomiting Pantoprazole Sodium (Protonix Ec Tab) 40 mg PO DAILY [facility] Last Admin: 07/11/17 09:52 Dose: 40 mg Pneumococcal Polyvalent Vaccine (Pneumovax 23 Vaccine) 0.5 ml IM .ONCE ONE Stop: 07/12/17 10:01 - Labs Labs: 07/12/17 06:18 07/12/17 06:18 PT 12.2 SECONDS (9.7-12.2) 07/12/17 06:18 INR 1.1 07/12/17 06:18 APTT 32 SECONDS (21-34) 07/12/17 06:18 - Additional Findings Additional findings: - Constitutional Appears: Non-toxic, No Acute Distress - Head Exam Head Exam: ATRAUMATIC, NORMOCEPHALIC - Eye Exam Eye Exam: EOMI - ENT Exam ENT Exam: Mucous Membranes Moist - Neck Exam Neck Exam: absent: Lymphadenopathy - Respiratory Exam Respiratory Exam: Clear to Ausculation Bilateral, Respiratory Distress, NORMAL BREATHING PATTERN. absent: Accessory Muscle Use, Rales, Rhonchi, Wheezes - Cardiovascular Exam Cardiovascular Exam: REGULAR RHYTHM, +S1, +S2 - GI/Abdominal Exam GI & Abdominal Exam: Soft, Tenderness (RLQ is TTP), Normal Bowel Sounds. absent : Distended, Firm, Rigid, Organomegaly, Rebound - Extremities Exam Extremities Exam: absent: Calf Tenderness, Pedal Edema - Neurological Exam Neurological Exam: Alert, Awake, CN II-XII Intact, Oriented x3 Neuro motor strength exam: Left Upper Extremity: 5, Right Upper Extremity: 5, Left Lower Extremity: 5, Right Lower Extremity: 5 - Psychiatric Exam Psychiatric exam: Normal Affect, Normal Mood - Skin Skin Exam: Dry, Warm Assessment and Plan - Assessment and Plan (Free Text) Assessment: Right lower quadrant abdominal pain -Surgery consulted, help appreciated -GI consulted, help appreciated * patient for colonoscopy today * large submucosal lesion at appendiceal orifice, colonic polyps. -- f/u pathology * patient for surgery today -Heme/Onc Consult, Dr. Calderon, help appreciated -CT showed large lobulated ovoid lesion of unknown etiology at cecum. 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 Dow
--- NOTE | 2017-07-12 08:24 | CP.PCM.PN ---
Subjective - Date & Time of Evaluation Date of Evaluation: 07/12/17 Time of Evaluation: 08:21 - Subjective Subjective: Patient seen and examined, no acute events overnight. s/p colonoscopy today showing large submucosal lesion at appendiceal orifice, 3 subcentimeter colon polyps in ascending colon, rectum. Objective - Vital Signs/Intake and Output Vital Signs (last 24 hours): Temp Pulse Resp BP Pulse Ox 98.3 F 54 L 20 134/87 100 07/12/17 07:18 07/12/17 07:18 07/12/17 07:18 07/12/17 07:18 07/12/17 07:18 Intake and Output: 07/12/17 07/12/17 06:59 18:59 Intake Total 0 400 Balance 0 400 - Medications Medications: Current Medications Enoxaparin Sodium (Lovenox) 40 mg SC DAILY [facility] Last Admin: 07/11/17 09:52 Dose: 40 mg Ketorolac Tromethamine (Toradol) 15 mg IVP Q6 PRN PRN Reason: Pain, moderate (4-7) Last Admin: 07/11/17 12:01 Dose: 15 mg Ondansetron HCl (Zofran Inj) 4 mg IVP Q6 PRN PRN Reason: Nausea/Vomiting Pantoprazole Sodium (Protonix Ec Tab) 40 mg PO DAILY [facility] Last Admin: 07/11/17 09:52 Dose: 40 mg Pneumococcal Polyvalent Vaccine (Pneumovax 23 Vaccine) 0.5 ml IM .ONCE ONE Stop: 07/12/17 10:01 - Labs Labs: 07/12/17 06:18 07/12/17 06:18 PT 12.2 SECONDS (9.7-12.2) 07/12/17 06:18 INR 1.1 07/12/17 06:18 APTT 32 SECONDS (21-34) 07/12/17 06:18 Assessment and Plan - Assessment and Plan (Free Text) Assessment: Abdominal pain Abnormal CT imaging s/p colonoscopy showing submucosal lesion at appendiceal orifice Plan: - Liquid diet as tolerated - Follow up colonoscopy biopsy results - Follow up surgical recommendations regarding potential intervention given CT and endoscopic findings - No further planned GI interventions, will sign off case, please reconsult as necessary thank you.
--- NOTE | 2017-07-12 08:46 | CP.PCM.PCO ---
Physician Communication Note - Physician Communication Note Physician Communication Note: Colonoscopy reviewed, will plan for surgery this afternoon, keep NPO.
[2017-07-12] MEDS: Pantoprazole 40 mg EC Tab PO SCH (09:56)
[2017-07-12] MEDS ORDERED: Pneumococcal 23-Valent Vaccine IM ONE (10:00)
[2017-07-12] MEDS ORDERED: ceFAZolin 1 gm in NS 2 GM/200 ML BAG IVPB ONE (13:31)
[2017-07-12] MEDS ORDERED: Midazolam 2 MG/2 ML VIAL ONE (13:42)
--- NOTE | 2017-07-12 14:35 | CT ---
PROCEDURE: CT HEAD WITHOUT CONTRAST. HISTORY: nonremitting headache COMPARISON: None available. TECHNIQUE: Axial computed tomography imag 839.20 es were obtained through the head/brain without intravenous contrast. Radiation dose: Total exam DLP = mGy-cm. This CT exam was performed using one or more of the following dose reduction techniques: Automated exposure control, adjustment of the mA and/or kV according to patient size, and/or use of iterative reconstruction technique. FINDINGS: HEMORRHAGE: No intracranial hemorrhage. BRAIN: No mass effect or edema. No atrophy or chronic microvascular ischemic changes. VENTRICLES: Unremarkable. No hydrocephalus. CALVARIUM: Unremarkable. PARANASAL SINUSES: Unremarkable as visualized. No significant inflammatory changes. MASTOID AIR CELLS: Unremarkable as visualized. No inflammatory changes. OTHER FINDINGS: None. IMPRESSION: Normal CT of the Head. No intracranial mass, hemorrhage or evidence of acute infarct.
[2017-07-12] MEDS ORDERED: Neostigmine Methylsulfate 3mg/3ml Syringe IV ONE (16:22)
[2017-07-12] MEDS ORDERED: HYDROmorphone 1 mg/ml ISec IVP PRN (16:46)
--- NOTE | 2017-07-12 16:46 | PCM.SURG1 ---
Surgeon's Initial Post Op Note - Surgeon's Notes Surgeon: Dr. Little Driver: Dr. Mason Type of Anesthesia: General Endo Anesthesia Administered By: Xiomara Pre-Operative Diagnosis: Appendiceal Mass Operative Findings: same Post-Operative Diagnosis: same Operation Performed: Laparoscopic converted to Open Ileocecectomy with primary anastomosis Specimen/Specimens Removed: Terminal Ileum, Cecum, Appendix Estimated Blood Loss: EBL {In ML}: 100 Blood Products Given: N/A Drains Used: No Drains Post-Op Condition: Good Date of Surgery/Procedure: 07/12/17 Time of Surgery/Procedure: 16:46
[2017-07-12] MEDS: HYDROmorphone 0.5 mg/0.5 ml ISec IVP PRN ×4 (17:13→18:43)
--- NOTE | 2017-07-12 17:27 | CP.PCM.CON ---
History of Present Illness - History of Present Illness History of Present Illness: 56 year old male with a history of gastritis, admitted with right lower quadrant abdominal pain, found to have a cecal mass. The patient reports to worsening RLQ pain. He has had a diminished appetite and few pound weightloss. A CT scan revealed a cecal mass, rectal thickening, heterogenous prostate, subcentimeter renal lesion, and a RLL pleural based lung nodule. Past medical history: Gastritis Past surgical history: ankle surgery Family history: Denies hematologic and oncologic problems Social history: Denies tobacco, alcohol, and illicit drug use. Allergies: NKA Review of sytems: All remaining review of systems including HEENT, cardiovascular, respiratory, gastrointestinal, genitourinary, musculoskeletal, dermatologic, neurologic, and psychiatric are negative unless mentioned in the HPI. Past Patient History - Past Medical History & Family History Past Medical History?: Yes - Past Social History Smoking Status: Never Smoked - MUSCULOSKELETAL/RHEUMATOLOGICAL Hx Falls: Yes - PSYCHIATRIC Hx Substance Use: No - SURGICAL HISTORY Hx Surgeries: Yes Hx Orthopedic Surgery: Yes (right lower) - ANESTHESIA Hx Anesthesia: Yes Hx Anesthesia Reactions: No Hx Malignant Hyperthermia: No Has any member of the family had a problem w/ anesthesia?: No Meds Allergies/Adverse Reactions: Allergies Allergy/AdvReac Type Severity Reaction Status Date / Time No Known Allergies Allergy Verified 07/10/17 13:18 - Medications Medications: Current Medications Enoxaparin Sodium (Lovenox) 40 mg SC DAILY [facility] Last Admin: 07/11/17 09:52 Dose: 40 mg Hydromorphone HCl (Dilaudid) 0.5 mg IVP Q5M PRN PRN Reason: Pain, severe (8-10) Stop: 07/12/17 18:43 Hydromorphone HCl (Dilaudid) 0.5 mg IVP Q3H PRN PRN Reason: Pain, moderate (4-7) Cefazolin Sodium 1 gm/ Sodium (Chloride) 100 mls @ 100 mls/hr IVPB ONCE ONE PRN Reason: Protocol Stop: 07/12/17 20:59 Lactated Ringer's (Lactated Ringer's) 1,000 mls @ 100 mls/hr IV .Q10H [facility] Ondansetron HCl (Zofran Inj) 4 mg IVP Q6 PRN PRN Reason: Nausea/Vomiting Ondansetron HCl (Zofran Inj) 4 mg IVP ONCE PRN PRN Reason: Nausea/Vomiting Stop: 07/12/17 18:43 Pantoprazole Sodium (Protonix Inj) 40 mg IVP DAILY [facility] Pneumococcal Polyvalent Vaccine (Pneumovax 23 Vaccine) 0.5 ml IM .ONCE ONE Stop: 07/13/17 10:01 Physical Exam - Head Exam Head Exam: ATRAUMATIC - Eye Exam Eye Exam: Normal appearance - ENT Exam ENT Exam: Mucous Membranes Dry - Respiratory Exam Respiratory Exam: NORMAL BREATHING PATTERN - Cardiovascular Exam Cardiovascular Exam: +S1, +S2 - GI/Abdominal Exam GI & Abdominal Exam: Normal Bowel Sounds Results - Vital Signs Recent Vital Signs: Last Vital Signs Temp 98.4 F 07/12/17 08:55 Pulse 58 L 07/12/17 08:55 Resp 14 07/12/17 08:55 BP 124/80 07/12/17 08:55 Pulse Ox 99 07/12/17 08:55 - Labs Result Diagrams: 07/14/17 06:15 07/14/17 06:15 Labs: Laboratory Results - last 24 hr 07/12/17 07/12/17 07/12/17 06:18 06:18 06:18 WBC 5.0 RBC 4.78 Hgb 13.6 Hct 39.6 MCV 82.8 MCH 28.5 MCHC 34.4 RDW 13.2 Plt Count 232 MPV 8.3 Neut % (Auto) 47.4 L Lymph % (Auto) 40.2 H [place] % (Auto) 8.4 Eos % (Auto) 3.7 Baso % (Auto) 0.3 Neut # (Auto) 2.4 Lymph # (Auto) 2.0 [place] # (Auto) 0.4 Eos # (Auto) 0.2 Baso # (Auto) 0.0 PT 12.2 INR 1.1 APTT 32 Sodium 139 Potassium 4.0 Chloride 100 Carbon Dioxide 26 Anion Gap 17 BUN 12 Creatinine 1.0 Est GFR ( Amer) > 60 Est GFR (Non-Af Amer) > 60 Random Glucose 83 Calcium 9.1 Total Bilirubin 0.8 AST 29 ALT 25 Alkaline Phosphatase 60 Total Protein 7.8 Albumin 3.8 Globulin 4.1 H Albumin/Globulin Ratio 0.9 L Carcinoembryonic Ag 2.6 Blood Type Antibody Screen 07/12/17 10:51 WBC RBC Hgb Hct MCV MCH MCHC RDW Plt Count MPV Neut % (Auto) Lymph % (Auto) [place] % (Auto) Eos % (Auto) Baso % (Auto) Neut # (Auto) Lymph # (Auto) [place] # (Auto) Eos # (Auto) Baso # (Auto) PT INR APTT Sodium Potassium Chloride Carbon Dioxide Anion Gap BUN Creatinine Est GFR ( Amer) Est GFR (Non-Af Amer) Random Glucose Calcium Total Bilirubin AST ALT Alkaline Phosphatase Total Protein Albumin Globulin Albumin/Globulin Ratio Carcinoembryonic Ag Blood Type O POSITIVE Antibody Screen Negative Assessment & Plan (1) Right lower quadrant abdominal mass Assessment and Plan: for GI and surgical evaluation further treatment recommendations based on pathology Thank you for this interesting consult. Status: Acute
[2017-07-12] MEDS ORDERED: Lactated Ringer's 1,000 ML IV ONE (18:30)
--- NOTE | 2017-07-12 19:26 | CARD ---
APPROVED REPORT EKG Measurement Heart [id number] <Conclusion> Sinus bradycardia Nonspecific ST abnormality Abnormal ECG
[2017-07-12] MEDS ORDERED: HYDROmorphone 0.5 mg/0.5 ml ISec IVP PRN (19:45)
[2017-07-12] MEDS ORDERED: ceFAZolin 1 GM in Sodium Chloride 0.9% 100 ML IVPB ONE (20:00)
[2017-07-12] MEDS: Lactated Ringer's 1,000 ML IV SCH (20:00)
[2017-07-12] MEDS: Morphine 4 MG/ML VIAL IVP SCH (20:36)
[2017-07-13] MEDS: Morphine 4 MG/ML VIAL IVP SCH ×2 (00:19→03:55)
[2017-07-13] MEDS: Lactated Ringer's 1,000 ML IV SCH ×3 (03:15→18:00)
--- NOTE | 2017-07-13 06:24 | CP.PCM.PN ---
Subjective - Date & Time of Evaluation Date of Evaluation: 07/13/17 Time of Evaluation: 07:00 - Subjective Subjective: PGY1- Dr. Dow's Service Patient seen and examined at bedside and is in no acute distress. Patient is POD #1 s/p lap converted to open ileocecectomy with primary anastomosis. Patient says he is having a lot of abdominal pain around the incision sites which he rates 9/10. Patient denies any shortness of breath, chest pain, nausea , vomiting. Objective - Vital Signs/Intake and Output Vital Signs (last 24 hours): Temp Pulse Resp BP Pulse Ox 98 F 88 20 121/74 96 07/12/17 23:32 07/12/17 23:32 07/12/17 23:32 07/12/17 23:32 07/12/17 23:32 Intake and Output: 07/12/17 07/13/17 18:59 06:59 Intake Total 2400 Balance 2400 - Medications Medications: Current Medications Enoxaparin Sodium (Lovenox) 40 mg SC DAILY [facility] Last Admin: 07/11/17 09:52 Dose: 40 mg Lactated Ringer's (Lactated Ringer's) 1,000 mls @ 100 mls/hr IV .Q10H [facility] Last Admin: 07/12/17 20:00 Dose: 100 mls/hr Morphine Sulfate (Morphine) 4 mg IVP Q4 [facility] Last Admin: 07/13/17 03:55 Dose: 4 mg Ondansetron HCl (Zofran Inj) 4 mg IVP Q6 PRN PRN Reason: Nausea/Vomiting Pantoprazole Sodium (Protonix Inj) 40 mg IVP DAILY [facility] Pneumococcal Polyvalent Vaccine (Pneumovax 23 Vaccine) 0.5 ml IM .ONCE ONE Stop: 07/13/17 10:01 - Labs Labs: 07/12/17 06:18 07/12/17 06:18 PT 12.2 SECONDS (9.7-12.2) 07/12/17 06:18 INR 1.1 07/12/17 06:18 APTT 32 SECONDS (21-34) 07/12/17 06:18 - Additional Findings Additional findings: - Constitutional Appears: Non-toxic, No Acute Distress - Head Exam Head Exam: ATRAUMATIC, NORMOCEPHALIC - Eye Exam Eye Exam: EOMI - ENT Exam ENT Exam: Mucous Membranes Moist - Neck Exam Neck Exam: absent: Lymphadenopathy - Respiratory Exam Respiratory Exam: Clear to Ausculation Bilateral, Respiratory Distress, NORMAL BREATHING PATTERN. absent: Accessory Muscle Use, Rales, Rhonchi, Wheezes - Cardiovascular Exam Cardiovascular Exam: REGULAR RHYTHM, +S1, +S2 - GI/Abdominal Exam GI & Abdominal Exam: Soft, Tenderness (RLQ is TTP), Normal Bowel Sounds. absent : Distended, Firm, Rigid, Organomegaly, Rebound - Extremities Exam Extremities Exam: absent: Calf Tenderness, Pedal Edema - Neurological Exam Neurological Exam: Alert, Awake, CN II-XII Intact, Oriented x3 Neuro motor strength exam: Left Upper Extremity: 5, Right Upper Extremity: 5, Left Lower Extremity: 5, Right Lower Extremity: 5 - Psychiatric Exam Psychiatric exam: Normal Affect, Normal Mood - Skin Skin Exam: Dry, Warm Assessment and Plan - Assessment and Plan (Free Text) Assessment: Lesion at Apendiceal Orifice s/p open ileocecectomy with primary anastomosis POD #1 -Surgery consulted, help appreciated -GI consulted, help appreciated * large submucosal lesion at appendiceal orifice, colonic polyps. -- f/u pathology -Heme/Onc Consult, Dr. Calderon, help appreciated -CT showed large lobulated ovoid lesion of unknown etiology at cecum. 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 No intracranial mass, hemorrhage or evidence of acute infarct. Bloody bowel movement -Negative ELIJAH -H/H stable -GI consulted, help appreciated Right lung subpleural nodule -CT shows 1.6 centimeter subpleural nodule/ lesion seen at the right lung base posteriorly -Consider IR consult for biopsy Enlarged prostate -Reports to have urinary hesitancy -CT showed Prominent and heterogeneous prostate measuring up to 6 centimeters -f/u PSA total and free -Urology consulted, help appreciated Prophylactic measure -Lovenox -Protonix -Zofran Case discussed with Dr. Dow
[2017-07-13] MEDS ORDERED: Morphine 4 MG/ML VIAL IVP PRN ×3 (07:56→14:00)
[2017-07-13 08:05] LABS: BASO % 0.2 % (0.0-2.0); HEMOGLOBIN 11.7 g/dL (12.0-18.0); LYMPH # 1.3 K/uL (1.0-4.3); LYMPH % 10.3 % (20.0-40.0); MEAN CELL VOLUME 82.5 fL (80.0-94.0); MEAN CORPUSCULAR HEMOGLOBIN 28.9 pg (27.0-31.0); MONO # 1.1 K/uL (0.0-0.8); MONO % 8.3 % (0.0-10.0); NEUT # 10.3 K/uL (1.8-7.0); NEUT % 81.2 % (50.0-75.0); RBC 4.04 Mil/uL (4.40-5.90); RED CELL DISTRIBUTION WIDTH 13.3 % (11.5-14.5)
[2017-07-13 08:13] LABS: WHITE BLOOD COUNT 12.7 K/uL (4.8-10.8)
[2017-07-13 08:19] LABS: ALB/GLOB RATIO 0.9 (1.0-2.1); ALBUMIN 3.4 g/dL (3.5-5.0); ALT/SGPT 16 U/L (21-72); AST/SGOT 35 U/L (17-59); BLOOD UREA NITROGEN 15 mg/dL (9-20); CALCIUM 8.4 mg/dl (8.6-10.4); GFR AFRICAN-AMERICAN > 60; GFR NON-AFRICAN AMERICAN > 60
[2017-07-13] MEDS: Morphine 4 MG/ML VIAL IVP PRN ×2 (08:32→12:39)
[2017-07-13] MEDS: Enoxaparin 40 mg Syringe SC SCH (09:34)
[2017-07-13] MEDS ORDERED: Pneumococcal 23-Valent Vaccine IM ONE (10:00)
--- NOTE | 2017-07-13 13:47 | CP.PCM.PN ---
Subjective - Date & Time of Evaluation Date of Evaluation: 07/13/17 Time of Evaluation: 13:43 - Subjective Subjective: General Surgery - Dr. Little Pt S&E. NAEO. Pt was given soup this morning by , nursing caught this and explained NPO instructions. Pt remains NPO at this time. He complains of incisional pain and will adjust pain meds accordingly. He has urinated, no flatus or BM yet. He denies any nausea/vomiting/fevers/chills. Objective - Vital Signs/Intake and Output Vital Signs (last 24 hours): Temp Pulse Resp BP Pulse Ox 98.3 F 89 20 126/80 96 07/13/17 07:16 07/13/17 07:16 07/13/17 07:16 07/13/17 07:16 07/13/17 07:16 Intake and Output: 07/13/17 07/13/17 06:59 18:59 Intake Total 200 Balance 200 - Medications Medications: Current Medications Enoxaparin Sodium (Lovenox) 40 mg SC DAILY [facility] Last Admin: 07/13/17 09:34 Dose: 40 mg Lactated Ringer's (Lactated Ringer's) 1,000 mls @ 100 mls/hr IV .Q10H [facility] Last Admin: 07/13/17 03:15 Dose: Not Given Ketorolac Tromethamine (Toradol) 30 mg IVP Q6 [facility] Morphine Sulfate (Morphine) 4 mg IVP Q3H PRN PRN Reason: Pain, moderate (4-7) Ondansetron HCl (Zofran Inj) 4 mg IVP Q6 PRN PRN Reason: Nausea/Vomiting Pantoprazole Sodium (Protonix Inj) 40 mg IVP DAILY [facility] Last Admin: 07/13/17 09:33 Dose: 40 mg - Labs Labs: 07/13/17 07:57 07/13/17 07:57 PT 12.2 SECONDS (9.7-12.2) 07/12/17 06:18 INR 1.1 07/12/17 06:18 APTT 32 SECONDS (21-34) 07/12/17 06:18 - Constitutional Appears: No Acute Distress - Head Exam Head Exam: ATRAUMATIC, NORMAL INSPECTION, NORMOCEPHALIC - Respiratory Exam Respiratory Exam: NORMAL BREATHING PATTERN. absent: Respiratory Distress - GI/Abdominal Exam GI & Abdominal Exam: Soft, Tenderness (appropriately). absent: Distended, Firm , Guarding, Rebound Additional comments: dressing with serosanguinous strikethrough, dry and intact - Neurological Exam Neurological Exam: Alert, Oriented x3 - Psychiatric Exam Psychiatric exam: Normal Affect, Normal Mood - Skin Skin Exam: Dry, Intact Assessment and Plan - Assessment and Plan (Free Text) Assessment: 56 yo M s/p Dx Laparoscopy converted to Open Ileocecectomy, POD #1 -Maintain NPO -IVF -Pain control - Toradol cam and Morphine PRN -Encourage OOB to chair during the day and Ambulation -Monitor for bowel function -F/u Path DW Dr Little
[2017-07-13 15:01] LABS: TOTAL PSA 2.9 ng/mL (< or = 4.0)
[2017-07-14] MEDS: Lactated Ringer's 1,000 ML IV SCH ×5 (01:00→20:00)
--- NOTE | 2017-07-14 01:24 | OP ---
PROCEDURE DATE: 07/12/2017 SURGEON: Jacqueline Little MD MASONRY INSTRUCTOR: Dr. Mason. ANESTHESIA: General. ANESTHESIA ADMINISTERED BY: TIM Gamez PREOPERATIVE DIAGNOSIS: Appendiceal mass. POSTOPERATIVE DIAGNOSIS: Appendiceal mass. PROCEDURE: Laparoscopy, open partial right hemicolectomy with ileocolic anastomosis. DESCRIPTION OF PROCEDURE: With the patient in the supine position, under adequate general anesthesia, the abdomen was prepped and draped in the usual sterile manner. Veress needle puncture was performed at the umbilicus with insufflation to 15 cm water pressure of CO2 and a 10 mm laparoscopic trocar was inserted via an infraumbilical incision. Under direct vision, 5 and 12 mm trocars were inserted in the left lower and upper quadrants, and the area of the right colon was visualized. There was noted to be a significant amount of omentum adherent to the area of the right iliac fossa and the pelvic sidewall in that area and the Harmonic scalpel was used to free the omentum and allow it to be displaced into the upper abdomen. When the omentum had been freed, a mass was visualized overlying the cecum which appeared to be consistent with an appendiceal mass. There was a smooth serosal surface and a cystic appearance with no evidence of inflammatory changes or serosal disruption. When the mass could be gently manipulated, however, the location of the terminal ileum could not be determined as there appeared to be an adherent loop of sigmoid colon as well as additional omentum adherent to the area of the cecum. At this point, decision was made to perform an open resection due to inability to visualize the necessary structures laparoscopically and a right paramedian incision was made, taken down through the subcutaneous tissue. The anterior fascia was divided and the rectus muscle retracted laterally to allow entry to the peritoneal cavity via the posterior rectus sheath. Upon entering the peritoneal cavity, it was noted that the sigmoid colon was in fact elongated and adherent to itself in a U-configuration with adherence to the area of the cecum as well. The sigmoid colon was sharply freed from the right lower quadrant attachments and replaced to the left lower quadrant and the remainder of the omentum was divided as well and displaced to the upper abdomen. The small bowel was visualized and the distal ileum also displaced some fixation down in to the pelvis before the terminal ileum and these adhesions were also divided to allow mobilization of the terminal ileum. The mass was noted to be quite close to and partially overlay the ileocecal junction which would not allow performance of a simple cecostomy and decision was made to perform a partial right hemicolectomy with anastomosis. The right colon was retracted medially and the white line of Toldt was incised up to the hepatic flexure. The right colon was then elevated off the posterior abdominal wall and sites of resection at the distal ileum and mid-right colon were identified and each site was divided using a MARY stapler. The mesentery was then divided with a combination of Harmonic scalpel and clamping, dividing and ligating larger vessels with 3-0 Vicryl ties and the specimen consisting of the cecum, terminal ileum, and appendix with the mass included was sent for frozen section. It was noted that there was a significant length of normal right colon and terminal ileum well beyond the area of fixation of the mass. The pathologist reported that the mass had the gross appearance of a mucocele and he noted obstruction of the appendiceal orifice. Consistent with this diagnosis, there was no evidence of tumor or other pathology and anastomosis was then carried out between the distal ileum and the right colon also using a MARY stapler with the residual defect being closed with a TA-30 stapler. The pelvis and right gutter were then irrigated and suctioned and the operative site examined for hemostasis. The closure was then performed in two layers with the posterior fascia being closed with running suture of 0-Vicryl and the anterior fascia being closed with running suture of double-stranded #1 PDS. The skin was closed with honorio. Dry sterile dressings were applied. The patient tolerated the procedure well and transferred to recovery room in stable condition. Estimated blood loss for the procedure was 100 mL. Jacqueline Little MD
[2017-07-14 06:24] LABS: BASO % 0.2 % (0.0-2.0); EOS % 0.4 % (0.0-4.0); HEMOGLOBIN 11.1 g/dL (12.0-18.0); LYMPH # 1.1 K/uL (1.0-4.3); LYMPH % 10.6 % (20.0-40.0); MEAN CORPUSCULAR HEMOGLOBIN 28.8 pg (27.0-31.0); MEAN CORPUSCULAR HGB CONC 34.7 g/dL (33.0-37.0); MEAN PLATELET VOLUME 7.9 fL (7.2-11.7); MONO # 0.7 K/uL (0.0-0.8); MONO % 6.4 % (0.0-10.0); NEUT # 8.7 K/uL (1.8-7.0); NEUT % 82.4 % (50.0-75.0); RBC 3.86 Mil/uL (4.40-5.90); RED CELL DISTRIBUTION WIDTH 13.1 % (11.5-14.5); WHITE BLOOD COUNT 10.6 K/uL (4.8-10.8)
[2017-07-14 06:40] LABS: ALB/GLOB RATIO 0.9 (1.0-2.1); ALBUMIN 3.2 g/dL (3.5-5.0); ALT/SGPT 20 U/L (21-72); AST/SGOT 43 U/L (17-59); BLOOD UREA NITROGEN 14 mg/dL (9-20); CALCIUM 8.4 mg/dl (8.6-10.4); GFR AFRICAN-AMERICAN > 60; GFR NON-AFRICAN AMERICAN > 60
--- NOTE | 2017-07-14 06:54 | CP.PCM.PN ---
Subjective - Date & Time of Evaluation Date of Evaluation: 07/14/17 Time of Evaluation: 07:00 - Subjective Subjective: PGY1- Dr. Dow's Service Patient seen and examined at bedside and is in no acute distress. Patient is POD #2 s/p lap converted to open ileocecectomy with primary anastomosis. Patient says he is having a lot of abdominal pain around the incision sites which he rates 5/10. Patient has not had a bowel movement or passed flatus. Patient denies any shortness of breath, chest pain, nausea, vomiting. Objective - Vital Signs/Intake and Output Vital Signs (last 24 hours): Temp Pulse Resp BP Pulse Ox 98.3 F 88 20 131/76 96 07/13/17 23:32 07/13/17 23:32 07/13/17 23:32 07/13/17 23:32 07/13/17 23:32 Intake and Output: 07/13/17 07/14/17 18:59 06:59 Intake Total 550 800 Output Total 500 Balance 550 300 - Medications Medications: Current Medications Enoxaparin Sodium (Lovenox) 40 mg SC DAILY [facility] Last Admin: 07/13/17 09:34 Dose: 40 mg Lactated Ringer's (Lactated Ringer's) 1,000 mls @ 100 mls/hr IV .Q10H [facility] Last Admin: 07/14/17 02:19 Dose: 100 mls/hr Ketorolac Tromethamine (Toradol) 30 mg IVP Q6H [facility] Last Admin: 07/14/17 01:03 Dose: 30 mg Morphine Sulfate (Morphine) 4 mg IVP Q3H PRN PRN Reason: Pain, moderate (4-7) Ondansetron HCl (Zofran Inj) 4 mg IVP Q6 PRN PRN Reason: Nausea/Vomiting Pantoprazole Sodium (Protonix Inj) 40 mg IVP DAILY [facility] Last Admin: 07/13/17 09:33 Dose: 40 mg - Labs Labs: 07/14/17 06:15 07/14/17 06:15 PT 12.2 SECONDS (9.7-12.2) 07/12/17 06:18 INR 1.1 07/12/17 06:18 APTT 32 SECONDS (21-34) 07/12/17 06:18 - Constitutional Appears: Non-toxic, No Acute Distress - Head Exam Head Exam: ATRAUMATIC, NORMAL INSPECTION, NORMOCEPHALIC - Eye Exam Eye Exam: EOMI, Normal appearance - ENT Exam ENT Exam: Mucous Membranes Moist - Respiratory Exam Respiratory Exam: Clear to Ausculation Bilateral, NORMAL BREATHING PATTERN - Cardiovascular Exam Cardiovascular Exam: REGULAR RHYTHM, RRR, +S1, +S2 - GI/Abdominal Exam GI & Abdominal Exam: Soft, Tenderness (generalized tenderness appropriate post surgery), Normal Bowel Sounds Additional comments: incisions covered with c/d/i dressing - Extremities Exam Extremities Exam: Normal Inspection. absent: Pedal Edema - Back Exam Back Exam: NORMAL INSPECTION - Neurological Exam Neurological Exam: Alert, Awake, Oriented x3 - Psychiatric Exam Psychiatric exam: Normal Affect, Normal Mood - Skin Skin Exam: Dry, Normal Color, Warm Assessment and Plan - Assessment and Plan (Free Text) Assessment: Lesion at Apendiceal Orifice s/p open ileocecectomy with primary anastomosis POD #2 -Surgery consulted, help appreciated -GI consulted, help appreciated * large submucosal lesion at appendiceal orifice, colonic polyps. -- f/u pathology -Heme/Onc Consult, Dr. Calderon, help appreciated -CT showed large lobulated ovoid lesion of unknown etiology at cecum. 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 No intracranial mass, hemorrhage or evidence of acute infarct. Bloody bowel movement -Negative ELIJAH -H/H stable -GI consulted, help appreciated Right lung subpleural nodule -CT shows 1.6 centimeter subpleural nodule/ lesion seen at the right lung base posteriorly -Consider IR consult for biopsy Enlarged prostate -Reports to have urinary hesitancy -CT showed Prominent and heterogeneous prostate measuring up to 6 centimeters -PSA total: 2.9 -free PSA: .6 -Urology consulted, help appreciated Prophylactic measure -Lovenox -Protonix -Zofran -bowel rest, NPO until passing flatus/ gas Case discussed with Dr. Dow
[2017-07-14] MEDS ORDERED: Oxycodone/Acetaminophen 5/325 mg Tab PO PRN (08:30)
[2017-07-14] MEDS ORDERED: Morphine 4 MG/ML VIAL IVP PRN (08:31)
--- NOTE | 2017-07-14 08:38 | CP.PCM.PN ---
Subjective - Date & Time of Evaluation Date of Evaluation: 07/14/17 Time of Evaluation: 06:50 - Subjective Subjective: Patient seen and examined at bedside thsi AM. No adverse events overnight. Patient complains of persistent pain but denies nausea, vomiting, or fevers. Is not ambulating. Denies passing flatus or BM. Encouraged patient to ambulate with assistance Objective - Vital Signs/Intake and Output Vital Signs (last 24 hours): Temp Pulse Resp BP Pulse Ox 98.8 F 90 97 H 130/76 97 07/14/17 07:58 07/14/17 07:58 07/14/17 07:58 07/14/17 07:58 07/14/17 07:58 Intake and Output: 07/14/17 07/14/17 06:59 18:59 Intake Total 800 Output Total 500 Balance 300 - Medications Medications: Current Medications Enoxaparin Sodium (Lovenox) 40 mg SC DAILY [facility] Last Admin: 07/13/17 09:34 Dose: 40 mg Lactated Ringer's (Lactated Ringer's) 1,000 mls @ 100 mls/hr IV .Q10H [facility] Last Admin: 07/14/17 02:19 Dose: 100 mls/hr Ketorolac Tromethamine (Toradol) 30 mg IVP Q6H [facility] Last Admin: 07/14/17 01:03 Dose: 30 mg Morphine Sulfate (Morphine) 4 mg IVP Q3H PRN PRN Reason: Pain, severe (8-10) Ondansetron HCl (Zofran Inj) 4 mg IVP Q6 PRN PRN Reason: Nausea/Vomiting Oxycodone/Acetaminophen (Percocet 5/325 Mg Tab) 1 tab PO Q6H PRN PRN Reason: Pain, moderate (4-7) Stop: 07/17/17 08:31 Pantoprazole Sodium (Protonix Inj) 40 mg IVP DAILY [facility] Last Admin: 07/13/17 09:33 Dose: 40 mg - Labs Labs: 07/14/17 06:15 07/14/17 06:15 PT 12.2 SECONDS (9.7-12.2) 07/12/17 06:18 INR 1.1 07/12/17 06:18 APTT 32 SECONDS (21-34) 07/12/17 06:18 - Constitutional Appears: Well, Non-toxic, No Acute Distress - Head Exam Head Exam: ATRAUMATIC, NORMOCEPHALIC - Eye Exam Eye Exam: Normal appearance. absent: Conjunctival injection, Scleral icterus - ENT Exam ENT Exam: Mucous Membranes Moist, Normal Oropharynx - Respiratory Exam Respiratory Exam: NORMAL BREATHING PATTERN. absent: Accessory Muscle Use, Respiratory Distress - Cardiovascular Exam Cardiovascular Exam: RRR - GI/Abdominal Exam GI & Abdominal Exam: Soft, Tenderness (in RLQ). absent: Distended Additional comments: dressing with moderate sero-sanguinous old saturation in the midline incision, incisions well approximated by honorio, no active bleeding or drainage or erythema - Extremities Exam Extremities Exam: absent: Calf Tenderness, Pedal Edema, Tenderness - Neurological Exam Neurological Exam: Alert, Awake, Oriented x3 - Psychiatric Exam Psychiatric exam: Normal Affect, Normal Mood - Skin Skin Exam: Dry, Normal Color, Warm Assessment and Plan - Assessment and Plan (Free Text) Assessment: 56M POD#2 s/p ileocecectomy with primary anastamosis for mass Plan: -F/U bowel movement -NPO until bowel movement or passing flatus occurs -Monitor CBC/BMP -PRN pain medication -Encourage ambulation and incentive spirometer use -Colonoscopic pathology report: ascending colon tubular adenoma, rectal hyperplastic polyp. Follow up surgical pathology report Discussed with Dr. Sidney Carrera PGY2
[2017-07-14] MEDS: Enoxaparin 40 mg Syringe SC SCH (10:02)
[2017-07-14 16:43] VITALS: RESP 20
--- NOTE | 2017-07-15 06:24 | CP.PCM.PN ---
<Laly Lucas - Last Filed: 07/15/17 17:20> Subjective - Date & Time of Evaluation Date of Evaluation: 07/15/17 Time of Evaluation: 07:00 - Subjective Subjective: PGY1- Dr. Tyler's Service Patient seen and examined at bedside and is in no acute distress. Patient is POD #3 s/p lap converted to open ileocecectomy with primary anastomosis. Patient says he is having a lot of abdominal pain around the incision sites which he rates 5/10. Patient has not had a bowel movement or passed flatus. Patient denies any shortness of breath, chest pain, nausea, vomiting. Objective - Vital Signs/Intake and Output Vital Signs (last 24 hours): Temp Pulse Resp BP Pulse Ox 98.9 F 98 H 20 126/80 96 07/15/17 04:11 07/15/17 00:00 07/15/17 00:00 07/15/17 00:00 07/15/17 00:00 Intake and Output: 07/14/17 07/15/17 18:59 06:59 Intake Total 1100 860 Output Total 800 Balance 1100 60 - Medications Medications: Current Medications Enoxaparin Sodium (Lovenox) 40 mg SC DAILY [facility] Last Admin: 07/14/17 10:02 Dose: 40 mg Lactated Ringer's (Lactated Ringer's) 1,000 mls @ 100 mls/hr IV .Q10H [facility] Last Admin: 07/14/17 20:00 Dose: 100 mls/hr Ketorolac Tromethamine (Toradol) 30 mg IVP Q6H [facility] Last Admin: 07/15/17 02:29 Dose: 30 mg Morphine Sulfate (Morphine) 4 mg IVP Q3H PRN PRN Reason: Pain, severe (8-10) Ondansetron HCl (Zofran Inj) 4 mg IVP Q6 PRN PRN Reason: Nausea/Vomiting Oxycodone/Acetaminophen (Percocet 5/325 Mg Tab) 1 tab PO Q6H PRN PRN Reason: Pain, moderate (4-7) Stop: 07/17/17 08:31 Last Admin: 07/14/17 17:57 Dose: 1 tab Pantoprazole Sodium (Protonix Inj) 40 mg IVP DAILY [facility] Last Admin: 07/14/17 10:08 Dose: 40 mg - Labs Labs: 07/14/17 06:15 18 06:15 PT 12.2 SECONDS (9.7-12.2) 07/12/17 06:18 INR 1.1 07/12/17 06:18 APTT 32 SECONDS (21-34) 07/12/17 06:18 - Additional Findings Additional findings: - Constitutional Appears: Non-toxic, No Acute Distress - Head Exam Head Exam: ATRAUMATIC, NORMAL INSPECTION, NORMOCEPHALIC - Eye Exam Eye Exam: EOMI, Normal appearance - ENT Exam ENT Exam: Mucous Membranes Moist - Respiratory Exam Respiratory Exam: Clear to Ausculation Bilateral, NORMAL BREATHING PATTERN - Cardiovascular Exam Cardiovascular Exam: REGULAR RHYTHM, RRR, +S1, +S2 - GI/Abdominal Exam GI & Abdominal Exam: Soft, Tenderness (generalized tenderness appropriate post surgery), Normal Bowel Sounds Additional comments: midline honorio clean, dry, intact. no wound dehiscence - Extremities Exam Extremities Exam: Normal Inspection. absent: Pedal Edema - Back Exam Back Exam: NORMAL INSPECTION - Neurological Exam Neurological Exam: Alert, Awake, Oriented x3 - Psychiatric Exam Psychiatric exam: Normal Affect, Normal Mood - Skin Skin Exam: Dry, Normal Color, Warm Assessment and Plan - Assessment and Plan (Free Text) Assessment: Lesion at Apendiceal Orifice s/p open ileocecectomy with primary anastomosis POD #3 -Surgery consulted, help appreciated- no further surgical indications -GI consulted, help appreciated * large submucosal lesion at appendiceal orifice, colonic polyps. 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 Calderon, help appreciated -CT showed large lobulated ovoid lesion of unknown etiology at cecum. Large mucocele of the appendix vs adenocarcinoma of the appendix vs carcinoid tumor ( see report) -Toradol and morphine prn for pain -Zofran for nausea -CEA: 2.6 -passing flatus, full liquid diet -patient cannot be discharged before having a bowel movement Fever low grade fever overnight f/u blood culture, urine culture, rapid flu Headache resolved Head CT: normal CT of the head. No intracranial mass, hemorrhage or evidence of acute infarct. Bloody bowel movement -Negative ELIJAH -H/H stable -GI consulted, help appreciated Right lung subpleural nodule -CT shows 1.6 centimeter subpleural nodule/ lesion seen at the right lung base posteriorly -follow up CT in 6 months Enlarged prostate -Reports to have urinary hesitancy -CT showed Prominent and heterogeneous prostate measuring up to 6 centimeters -PSA total: 2.9 -free PSA: .6 -Urology consulted, help appreciated Prophylactic measure -Lovenox -Protonix -Zofran -bowel rest, NPO until passing flatus/ gas Case discussed with Dr. Tyler <Nitish Tyler - Last Filed: 07/15/17 19:22> Objective - Vital Signs/Intake and Output Vital Signs (last 24 hours): Temp Pulse Resp BP Pulse Ox 98.9 F 93 H 20 122/81 96 07/15/17 16:07 07/15/17 16:07 07/15/17 16:07 07/15/17 16:07 07/15/17 16:07 Intake and Output: 07/15/17 07/16/17 18:59 06:59 Intake Total 600 Balance 600 - Medications Medications: Current Medications Enoxaparin Sodium (Lovenox) 40 mg SC DAILY [facility] Last Admin: 07/15/17 09:53 Dose: 40 mg Ketorolac Tromethamine (Toradol) 30 mg IVP Q6H [facility] Last Admin: 07/15/17 14:03 Dose: 30 mg Morphine Sulfate (Morphine) 4 mg IVP Q3H PRN PRN Reason: Pain, moderate (4-7) Ondansetron HCl (Zofran Inj) 4 mg IVP Q6 PRN PRN Reason: Nausea/Vomiting Pantoprazole Sodium (Protonix Inj) 40 mg IVP DAILY [facility] Last Admin: 07/15/17 09:53 Dose: 40 mg - Labs Labs: 07/15/17 07:43 07/15/17 07:43 PT 12.2 SECONDS (9.7-12.2) 07/12/17 06:18 INR 1.1 07/12/17 06:18 APTT 32 SECONDS (21-34) 07/12/17 06:18 Attending/Attestation - Attestation I have personally seen and examined this patient.: Yes I have fully participated in the care of the patient.: Yes I have reviewed all pertinent clinical information, including history, physical exam and plan: Yes Notes (Text): 04/13/18 19:14 Patient was seen and examined at 3 PM with his Daughter Preeti donahue Exam, assessment and plan were gone over with the resident. Also on ROS: complains of 7/10 pain but patient did not appear to be in any kind of discomfort. NO bowel movement yet but has not been eating much Passing flatus Extensive conversation with patient and his Daughter about the proper use of narcotic pain medication: patient should only ask for it if he is at the point of tears, nausea/vomiting from the pain, or extremely uncomfortable. Encouraged and explained the importance of incentive spirometry 10x per hour while awake and ambulated for 20 minutes every 2 hours while awake. Encouraged to eat his FULL LIQUID diet Medicine Team please make sure of the following: Speak with Heme/Oncology Dr. 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 Surgery Team stated that NO further surgical intervention is needed. Is there anything planned by Dr. Alyson Calderon? Speak with Urologist Dr. John Stinson concerned the enlarged prostate that was found on CT Abdomen: does Dr. John Stinson recommend outpatient follow up with him ? F/U Physical Therapy recommendations: patient is uninsured therefore he does NOT qualify for any home assistance or MEJIA For the fever that was noted at midnight and early this morning: f/u blood culture, urine culture, and rapid influenza. NO chest x ray ordered as respiratory exam was CTA Bilaterally with NO R/R/W. Nitish Tyler D.O.
[2017-07-15 07:54] LABS: BASO % 0.1 % (0.0-2.0); EOS # 0.1 K/uL (0.0-0.7); EOS % 0.7 % (0.0-4.0); HEMOGLOBIN 10.2 g/dL (12.0-18.0); LYMPH # 0.9 K/uL (1.0-4.3); MEAN CELL VOLUME 83.6 fL (80.0-94.0); MEAN CORPUSCULAR HEMOGLOBIN 29.2 pg (27.0-31.0); MEAN CORPUSCULAR HGB CONC 34.9 g/dL (33.0-37.0); MEAN PLATELET VOLUME 8.5 fL (7.2-11.7); MONO # 0.7 K/uL (0.0-0.8); MONO % 6.5 % (0.0-10.0); NEUT # 8.8 K/uL (1.8-7.0); NEUT % 83.7 % (50.0-75.0); PLATELET COUNT 155 K/uL (130-400); RED CELL DISTRIBUTION WIDTH 12.7 % (11.5-14.5); WHITE BLOOD COUNT 10.5 K/uL (4.8-10.8)
[2017-07-15] MEDS ORDERED: Morphine 4 MG/ML VIAL IVP PRN (08:09)
[2017-07-15 08:13] LABS: ALB/GLOB RATIO 0.9 (1.0-2.1); ALBUMIN 3.1 g/dL (3.5-5.0); ALT/SGPT 17 U/L (21-72); AST/SGOT 40 U/L (17-59); BLOOD UREA NITROGEN 7 mg/dL (9-20); CALCIUM 8.1 mg/dl (8.6-10.4); GFR AFRICAN-AMERICAN > 60; GFR NON-AFRICAN AMERICAN > 60
--- NOTE | 2017-07-15 08:25 | CP.PCM.PN ---
Subjective - Date & Time of Evaluation Date of Evaluation: 07/15/17 Time of Evaluation: 08:20 - Subjective Subjective: General Surgery - Dr. Little Pt S&E. NIKI. Pt reports pain in the incision and states he hadn't received pain meds all night, spoke to nurse was medicated accordingly. He reports tolerating clear liquids and passing flatus, no BM yet. He has ambulated in the halls, denies any Nausea/vomiting. Objective - Vital Signs/Intake and Output Vital Signs (last 24 hours): Temp Pulse Resp BP Pulse Ox 98.9 F 98 H 20 126/80 96 07/15/17 04:11 07/15/17 00:00 07/15/17 00:00 07/15/17 00:00 07/15/17 00:00 Intake and Output: 07/15/17 07/15/17 06:59 18:59 Intake Total 860 Output Total 800 Balance 60 - Medications Medications: Current Medications Enoxaparin Sodium (Lovenox) 40 mg SC DAILY [facility] Last Admin: 07/14/17 10:02 Dose: 40 mg Lactated Ringer's (Lactated Ringer's) 1,000 mls @ 100 mls/hr IV .Q10H [facility] Last Admin: 07/14/17 20:00 Dose: 100 mls/hr Ketorolac Tromethamine (Toradol) 30 mg IVP Q6H [facility] Last Admin: 07/15/17 02:29 Dose: 30 mg Morphine Sulfate (Morphine) 4 mg IVP Q3H PRN PRN Reason: Pain, moderate (4-7) Ondansetron HCl (Zofran Inj) 4 mg IVP Q6 PRN PRN Reason: Nausea/Vomiting Pantoprazole Sodium (Protonix Inj) 40 mg IVP DAILY [facility] Last Admin: 07/14/17 10:08 Dose: 40 mg - Labs Labs: 07/15/17 07:43 07/15/17 07:43 PT 12.2 SECONDS (9.7-12.2) 07/12/17 06:18 INR 1.1 07/12/17 06:18 APTT 32 SECONDS (21-34) 07/12/17 06:18 - Constitutional Appears: No Acute Distress - Head Exam Head Exam: ATRAUMATIC, NORMAL INSPECTION, NORMOCEPHALIC - Eye Exam Eye Exam: Normal appearance - Respiratory Exam Respiratory Exam: NORMAL BREATHING PATTERN. absent: Respiratory Distress - Cardiovascular Exam Cardiovascular Exam: REGULAR RHYTHM - GI/Abdominal Exam GI & Abdominal Exam: Soft, Tenderness. absent: Distended, Guarding, Rebound Additional comments: small area of swelling/ecchymosis in RLQ possibly related to lovenox injection - Neurological Exam Neurological Exam: Alert, Oriented x3 - Psychiatric Exam Psychiatric exam: Normal Affect, Normal Mood - Skin Skin Exam: Dry, Intact Assessment and Plan - Assessment and Plan (Free Text) Assessment: 56M POD#3 s/p ileocecectomy for low-grade appendiceal mucinous neoplasm Plan: -Full liquid diet -Pain control with scheduled toradol and Morphine PRN -Encourage OOB/Ambulation -Monitor for bowel function OBINNA Little
[2017-07-15] MEDS ORDERED: Potassium Phosphate 30 MMOLE in Sodium Chloride 0.9% 250 ML IVPB ONE (09:00)
[2017-07-15 09:37] LABS: BANDS 1 % (0-2); EOSINOPHIL 1 % (0-4); LYMPHOCYTE 5 % (20-40); MONOCYTE 7 % (0-10); NEUTROPHIL 86 % (50-75); PLATELET ESTIMATE NORMAL (NORMAL); TOTAL CELLS COUNTED 100
[2017-07-15] MEDS: Enoxaparin 40 mg Syringe SC SCH (09:53)
[2017-07-16 07:14] LABS: BASO % 0.2 % (0.0-2.0); EOS % 0.4 % (0.0-4.0); HEMOGLOBIN 10.1 g/dL (12.0-18.0); LYMPH # 1.1 K/uL (1.0-4.3); LYMPH % 8.9 % (20.0-40.0); MEAN CELL VOLUME 83.7 fL (80.0-94.0); MEAN CORPUSCULAR HEMOGLOBIN 28.7 pg (27.0-31.0); MEAN CORPUSCULAR HGB CONC 34.3 g/dL (33.0-37.0); MEAN PLATELET VOLUME 8.3 fL (7.2-11.7); MONO % 7.6 % (0.0-10.0); NEUT # 10.5 K/uL (1.8-7.0); NEUT % 82.9 % (50.0-75.0); PLATELET COUNT 170 K/uL (130-400); RBC 3.51 Mil/uL (4.40-5.90); RED CELL DISTRIBUTION WIDTH 12.8 % (11.5-14.5); WHITE BLOOD COUNT 12.6 K/uL (4.8-10.8)
[2017-07-16 07:46] LABS: ALB/GLOB RATIO 0.8 (1.0-2.1); ALT/SGPT 21 U/L (21-72); AST/SGOT 32 U/L (17-59); BLOOD UREA NITROGEN 5 mg/dL (9-20); CALCIUM 8.2 mg/dl (8.6-10.4); GFR AFRICAN-AMERICAN > 60; GFR NON-AFRICAN AMERICAN > 60
--- NOTE | 2017-07-16 08:28 | CP.PCM.PN ---
Subjective - Date & Time of Evaluation Date of Evaluation: 07/16/17 Time of Evaluation: 08:26 - Subjective Subjective: General Surgery - DR. Little Pt S&E. NIKI. Pt complains of incisional pain, controlled with meds and abdominal binder. He has been OOB and ambulating. Passing flatus, no BM yet. He is tolerating liquid diet but does not feel desire to eat more at this time. No N/V, F/C. Objective - Vital Signs/Intake and Output Vital Signs (last 24 hours): Temp Pulse Resp BP Pulse Ox 99.4 F 93 H 20 125/79 96 07/16/17 06:30 07/16/17 06:30 07/16/17 06:30 07/16/17 06:30 07/16/17 06:30 Intake and Output: 07/16/17 07/16/17 06:59 18:59 Intake Total 500 Balance 500 - Medications Medications: Current Medications Ondansetron HCl (Zofran Inj) 4 mg IVP Q6 PRN PRN Reason: Nausea/Vomiting Oxycodone/Acetaminophen (Percocet 5/325 Mg Tab) 2 tab PO Q4H PRN PRN Reason: Pain, moderate (4-7) Stop: 07/19/17 08:25 Pantoprazole Sodium (Protonix Inj) 40 mg IVP DAILY [facility] Last Admin: 07/15/17 09:53 Dose: 40 mg - Labs Labs: 07/16/17 07:04 07/16/17 07:04 PT 12.2 SECONDS (9.7-12.2) 07/12/17 06:18 INR 1.1 07/12/17 06:18 APTT 32 SECONDS (21-34) 07/12/17 06:18 - Constitutional Appears: No Acute Distress - Head Exam Head Exam: ATRAUMATIC, NORMAL INSPECTION, NORMOCEPHALIC - Respiratory Exam Respiratory Exam: NORMAL BREATHING PATTERN. absent: Respiratory Distress - Cardiovascular Exam Cardiovascular Exam: REGULAR RHYTHM - GI/Abdominal Exam GI & Abdominal Exam: Soft, Tenderness (appropriately). absent: Distended, Guarding Additional comments: diffuse ecchymosis from lovenox injections - Neurological Exam Neurological Exam: Alert, Oriented x3 - Psychiatric Exam Psychiatric exam: Normal Affect, Normal Mood - Skin Skin Exam: Dry, Intact Assessment and Plan - Assessment and Plan (Free Text) Assessment: 56M POD#5 s/p ileocecectomy for low-grade appendiceal mucinous neoplasm Plan: -Continue Full liquid diet -PO pain meds -Encourage OOB/Ambulation -Monitor for bowel function OBINNA Little
[2017-07-16] MEDS ORDERED: Vancomycin 1 gm/NS 200 ml 1 GM/200 ML BAG IVPB ONE (09:04)
[2017-07-16 09:17] LABS: BANDS 3 % (0-2); EOSINOPHIL 1 % (0-4); TOTAL CELLS COUNTED 100
[2017-07-16 09:18] LABS: LYMPHOCYTE 9 % (20-40); MONOCYTE 6 % (0-10); NEUTROPHIL 81 % (50-75); PLATELET ESTIMATE NORMAL (NORMAL)
--- NOTE | 2017-07-16 09:32 | CP.PCM.PN ---
Subjective - Date & Time of Evaluation Date of Evaluation: 07/16/17 Time of Evaluation: 08:30 - Subjective Subjective: Patient seen and examined at bedside. Patient resting comfortably in bed. Patient says overnight he was having chills and sweats. He is currently complaining of headache and feeling "gassy". Patient says he is passing flatus and had one BM yesterday afternoon. His pain is well controlled on the pain management regimen. Denies chest pain, SOB, palpitations, dizziness, nausea, vomiting, diarrhea, constipation, and calf pain. Objective - Vital Signs/Intake and Output Vital Signs (last 24 hours): Temp Pulse Resp BP Pulse Ox 99.4 F 93 H 20 125/79 96 07/16/17 06:30 07/16/17 06:30 07/16/17 06:30 07/16/17 06:30 07/16/17 06:30 Intake and Output: 07/16/17 07/16/17 06:59 18:59 Intake Total 500 Balance 500 - Medications Medications: Current Medications Acetaminophen (Tylenol 325mg Tab) 650 mg PO Q6 PRN PRN Reason: Fever >100.4 F Piperacillin Sod/Tazobactam Sod (Zosyn 3.375 Gm Iv Premix) 3.375 gm in 50 mls @ 100 mls/hr IVPB Q6H [facility] PRN Reason: Protocol Vancomycin/Sodium Chloride (Vancomycin 1 Gm/Ns 200 Ml) 1 gm in 200 mls @ 133.333 mls/hr IVPB ONCE ONE PRN Reason: Protocol Stop: 07/16/17 10:33 Ondansetron HCl (Zofran Inj) 4 mg IVP Q6 PRN PRN Reason: Nausea/Vomiting Oxycodone/Acetaminophen (Percocet 5/325 Mg Tab) 2 tab PO Q4H PRN PRN Reason: Pain, moderate (4-7) Stop: 07/19/17 08:27 Pantoprazole Sodium (Protonix Inj) 40 mg IVP DAILY [facility] Last Admin: 07/15/17 09:53 Dose: 40 mg - Labs Labs: 07/16/17 07:04 07/16/17 07:04 PT 12.2 SECONDS (9.7-12.2) 07/12/17 06:18 INR 1.1 07/12/17 06:18 APTT 32 SECONDS (21-34) 07/12/17 06:18 - Constitutional Appears: Non-toxic, No Acute Distress - Head Exam Head Exam: ATRAUMATIC, NORMAL INSPECTION, NORMOCEPHALIC - Eye Exam Eye Exam: EOMI, Normal appearance, PERRL Pupil Exam: NORMAL ACCOMODATION, PERRL - ENT Exam ENT Exam: Mucous Membranes Moist, Normal Exam - Neck Exam Neck Exam: Full ROM, Normal Inspection. absent: Lymphadenopathy - Respiratory Exam Respiratory Exam: Clear to Ausculation Bilateral, NORMAL BREATHING PATTERN - Cardiovascular Exam Cardiovascular Exam: REGULAR RHYTHM, +S1, +S2. absent: Murmur - GI/Abdominal Exam GI & Abdominal Exam: Soft, Tenderness (mild postop tednerness to palpation) Additional comments: Binder in place - Extremities Exam Extremities Exam: Normal Inspection. absent: Calf Tenderness, Pedal Edema - Neurological Exam Neurological Exam: Alert, Awake, Oriented x3 - Psychiatric Exam Psychiatric exam: Normal Affect, Normal Mood - Skin Skin Exam: Dry, Intact, Normal Color, Warm Assessment and Plan - Assessment and Plan (Free Text) Plan: Lesion at Apendiceal Orifice s/p open ileocecectomy with primary anastomosis POD #3 -Surgery consulted, help appreciated- no further surgical indications -GI consulted, help appreciated * large submucosal lesion at appendiceal orifice, colonic polyps. 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 Calderon, help appreciated -CT showed large lobulated ovoid lesion of unknown etiology at cecum. Large mucocele of the appendix vs adenocarcinoma of the appendix vs carcinoid tumor ( see report) -Toradol and morphine prn for pain -Zofran for nausea -CEA: 2.6 -diet per surgery team -Physical Therapy - patient is uninsured therefore he does NOT qualify for any home assistance or MEJIA Fever 103.1 rectal on 07/16 f/u blood culture, urine culture, lactic acid rapid flu negative Vanc 1 g IV x1 dose Zosyn 3.375 g IV Q6 Tylenol prn fever Headache Head CT: normal CT of the head. No intracranial mass, hemorrhage or evidence of acute infarct. Tylenol prn Bloody bowel movement -Negative ELIJAH -H/H stable -GI consulted, help appreciated Right lung subpleural nodule -CT shows 1.6 centimeter subpleural nodule/ lesion seen at the right lung base posteriorly -follow up CT in 6 months Enlarged prostate -Reports to have urinary hesitancy -CT showed Prominent and heterogeneous prostate measuring up to 6 centimeters -PSA total: 2.9 -free PSA: .6 -Urology consulted, help appreciated Prophylactic measure -Lovenox -Protonix -Zofran -bowel rest, NPO until passing flatus/ gas
--- NOTE | 2017-07-16 09:56 | PCM.RRT ---
<Jennyfer Knox - Last Filed: 07/16/17 09:53> RATTAN WORKER Nurses Assessment - Situation Date: 07/16/17 Time RATTAN WORKER was called: 08:58 I.Reason for RATTAN WORKER - A) Acute Change in Patient: Subjective: Code sepsis was called at 08:58 for rectal temp of 103.1 F. On arrival patient was otherwise stable, non tachy, and normotensive. Patient complained of chills and sweats overnight. Lactate and cultures were ordered. Patient was given Vanc 1 g IV x1 dose and started on IV zosyn Q6H. - Constitutional Appears: Non-toxic, No Acute Distress - Head Head Exam: ATRAUMATIC, NORMAL INSPECTION, NORMOCEPHALIC - Eyes Eye Exam: EOMI, Normal appearance, PERRL - Respiratory Exam Respiratory Exam: Clear to Ausculation Bilateral, NORMAL BREATHING PATTERN - Cardiovascular Exam Cardiovascular Exam: REGULAR RHYTHM, +S1, +S2 - GI/Abdominal Exam Additional comments: Soft, Tenderness (mild postop tednerness to palpation), nondistended - Neurological Exam Neurological Exam: Alert, Awake, Oriented x3 - Extremities Exam Extremities Exam: Normal Inspection Plan - Assessment of Findings&Treatment Plan See summary <Skip Sim - Last Filed: 07/16/17 11:07> Attending/Attestation - Attestation I have personally seen and examined this patient.: Yes I have fully participated in the care of the patient.: Yes I have reviewed all pertinent clinical information, including history, physical exam and plan: Yes Notes (Text): 07/16/17 10:59 Medical attending: Patient was seen and examined by me. Agree with the above note by the resident The patient had a CODE SEPSIS called, staff were concerned for an elevated temperature reading. When we came and saw he was AAO x 3. He was speaking in full sentences. His only report was a very minimal headache. He denied chest pain, denied shortness of breath - he reported the area of surgery was minimal tender. He did not have guarded on palpation and the wound area looked clean - there was no oozing or leakage. Orders for Tylenol, Vancomycin x 1 and Zosyn, blood cultures. Probably this is post op fever. If he is stable and lab work is stable probably we can stop the Zosyn. thank you Skip Sim
[2017-07-16] MEDS ORDERED: Potassium Chloride 20 mEq ER Tab PO ONE (11:34)
[2017-07-16] MEDS: Piperacill/Tazo 3.375gm in Dex 3.375 GM/50 ML BAG IVPB SCH ×3 (11:45→21:28)
[2017-07-16] MEDS: Oxycodone/Acetaminophen 5/325 mg Tab PO PRN (14:59)
--- NOTE | 2017-07-17 03:26 | CP.PCM.PN ---
Subjective - Date & Time of Evaluation Date of Evaluation: 07/16/17 Time of Evaluation: 15:00 - Subjective Subjective: Has mild abdominal pain. Objective - Vital Signs/Intake and Output Vital Signs (last 24 hours): Temp Pulse Resp BP Pulse Ox 98.3 F 86 20 110/70 97 07/16/17 23:27 07/16/17 23:27 07/16/17 23:27 07/16/17 23:27 07/16/17 23:27 - Medications Medications: Current Medications Acetaminophen (Tylenol 325mg Tab) 650 mg PO Q6 PRN PRN Reason: Fever >100.4 F Last Admin: 07/16/17 21:32 Dose: 650 mg Piperacillin Sod/Tazobactam Sod (Zosyn 3.375 Gm Iv Premix) 3.375 gm in 50 mls @ 100 mls/hr IVPB Q6H [facility] PRN Reason: Protocol Last Admin: 07/16/17 21:28 Dose: 100 mls/hr Ondansetron HCl (Zofran Inj) 4 mg IVP Q6 PRN PRN Reason: Nausea/Vomiting Oxycodone/Acetaminophen (Percocet 5/325 Mg Tab) 2 tab PO Q4H PRN PRN Reason: Pain, moderate (4-7) Stop: 07/19/17 08:27 Last Admin: 07/16/17 14:59 Dose: 2 tab Pantoprazole Sodium (Protonix Inj) 40 mg IVP DAILY [facility] Last Admin: 07/16/17 09:42 Dose: 40 mg - Labs Labs: 07/16/17 07:04 07/16/17 07:04 PT 12.2 SECONDS (9.7-12.2) 07/12/17 06:18 INR 1.1 07/12/17 06:18 APTT 32 SECONDS (21-34) 07/12/17 06:18 - Head Exam Head Exam: ATRAUMATIC - Eye Exam Eye Exam: Normal appearance - ENT Exam ENT Exam: Mucous Membranes Dry - Respiratory Exam Respiratory Exam: NORMAL BREATHING PATTERN - Cardiovascular Exam Cardiovascular Exam: +S1, +S2 - GI/Abdominal Exam GI & Abdominal Exam: Normal Bowel Sounds Assessment and Plan (1) Low grade mucinous neoplasm of appendix Assessment & Plan: s/p surgical resection pTis outpatient surveillance Status: Acute
[2017-07-17] MEDS: Piperacill/Tazo 3.375gm in Dex 3.375 GM/50 ML BAG IVPB SCH ×4 (03:46→21:50)
[2017-07-17] MEDS: Oxycodone/Acetaminophen 5/325 mg Tab PO PRN ×2 (04:02→19:14)
--- NOTE | 2017-07-17 08:08 | CP.PCM.PN ---
Subjective - Date & Time of Evaluation Date of Evaluation: 07/17/17 Time of Evaluation: 08:05 - Subjective Subjective: General Surgery - Dr. Little Pt S&E. NIKI. Pt reports he is feeling better, pain improving and well controlled with PO meds. He had a code sepsis called yesterday for a rectal temp of 103, HR and BP have been WNL and Oral Temps also have been WNL.. He complains that his urine is darker and is urinating less than usual and has only had 1 Bm since surgery. Encouraged PO fluid intake. No Nausea/Vomiting, Fevers or Chills. Objective - Vital Signs/Intake and Output Vital Signs (last 24 hours): Temp Pulse Resp BP Pulse Ox 97.9 F 86 20 133/81 97 07/17/17 07:30 07/17/17 07:30 07/17/17 07:30 07/17/17 07:30 07/17/17 07:30 Intake and Output: 07/17/17 07/17/17 06:59 18:59 Intake Total 230 Balance 230 - Medications Medications: Current Medications Acetaminophen (Tylenol 325mg Tab) 650 mg PO Q6 PRN PRN Reason: Fever >100.4 F Last Admin: 07/16/17 21:32 Dose: 650 mg Piperacillin Sod/Tazobactam Sod (Zosyn 3.375 Gm Iv Premix) 3.375 gm in 50 mls @ 100 mls/hr IVPB Q6H [facility] PRN Reason: Protocol Last Admin: 07/17/17 03:46 Dose: 100 mls/hr Ondansetron HCl (Zofran Inj) 4 mg IVP Q6 PRN PRN Reason: Nausea/Vomiting Oxycodone/Acetaminophen (Percocet 5/325 Mg Tab) 2 tab PO Q4H PRN PRN Reason: Pain, moderate (4-7) Stop: 07/19/17 08:27 Last Admin: 07/17/17 04:02 Dose: 2 tab Pantoprazole Sodium (Protonix Inj) 40 mg IVP DAILY [facility] Last Admin: 07/16/17 09:42 Dose: 40 mg - Labs Labs: 07/16/17 07:04 07/16/17 07:04 PT 12.2 SECONDS (9.7-12.2) 07/12/17 06:18 INR 1.1 07/12/17 06:18 APTT 32 SECONDS (21-34) 07/12/17 06:18 - Constitutional Appears: No Acute Distress - Head Exam Head Exam: ATRAUMATIC, NORMAL INSPECTION, NORMOCEPHALIC - Eye Exam Eye Exam: Normal appearance - Respiratory Exam Respiratory Exam: NORMAL BREATHING PATTERN. absent: Respiratory Distress - Cardiovascular Exam Cardiovascular Exam: REGULAR RHYTHM - GI/Abdominal Exam GI & Abdominal Exam: Soft, Tenderness (minimal inciisonal tenderness, ecchymosis improving). absent: Firm, Guarding, Rigid, Rebound - Neurological Exam Neurological Exam: Alert, Oriented x3 - Psychiatric Exam Psychiatric exam: Normal Affect, Normal Mood - Skin Skin Exam: Dry, Intact Assessment and Plan - Assessment and Plan (Free Text) Assessment: 56M POD#5 s/p ileocecectomy for low-grade appendiceal mucinous neoplasm Plan: -Regular diet -PO pain meds -Colace -Encourage OOB/Ambulation OBINNA Little
[2017-07-17 08:53] LABS: BASO % 0.3 % (0.0-2.0); EOS # 0.1 K/uL (0.0-0.7); EOS % 0.9 % (0.0-4.0); HEMOGLOBIN 10.8 g/dL (12.0-18.0); LYMPH # 1.1 K/uL (1.0-4.3); LYMPH % 7.5 % (20.0-40.0); MEAN CELL VOLUME 84.1 fL (80.0-94.0); MEAN CORPUSCULAR HEMOGLOBIN 29.1 pg (27.0-31.0); MEAN CORPUSCULAR HGB CONC 34.6 g/dL (33.0-37.0); MEAN PLATELET VOLUME 8.1 fL (7.2-11.7); MONO % 6.6 % (0.0-10.0); NEUT # 12.7 K/uL (1.8-7.0); NEUT % 84.7 % (50.0-75.0); PLATELET COUNT 231 K/uL (130-400); RBC 3.72 Mil/uL (4.40-5.90)
[2017-07-17 09:11] LABS: ALB/GLOB RATIO 0.9 (1.0-2.1); ALBUMIN 3.4 g/dL (3.5-5.0); ALT/SGPT 17 U/L (21-72); AST/SGOT 31 U/L (17-59); BLOOD UREA NITROGEN 9 mg/dL (9-20); CALCIUM 8.7 mg/dl (8.6-10.4); GFR AFRICAN-AMERICAN > 60; GFR NON-AFRICAN AMERICAN > 60
[2017-07-17 09:34] LABS: BANDS 7 % (0-2); EOSINOPHIL 1 % (0-4); LYMPHOCYTE 6 % (20-40); MONOCYTE 8 % (0-10); NEUTROPHIL 78 % (50-75); TOTAL CELLS COUNTED 100
[2017-07-17 09:35] LABS: PLATELET ESTIMATE NORMAL (NORMAL)
--- NOTE | 2017-07-17 10:26 | CP.PCM.PN ---
<Jennyfer Knox - Last Filed: 07/17/17 10:41> Subjective - Date & Time of Evaluation Date of Evaluation: 07/17/17 Time of Evaluation: 10:23 - Subjective Subjective: Patient seen and examined at bedside. Patient resting comfortably in bed with no new complaints a this time. Patient was concerned about a "hard lump" under the incision site and the bruising around it. He says his last BM was painful and he has not been urinating very much. Patient otherwise denies any fever, chills, dizziness, chest pain, SOB, palpitations, cough, n/v/d, blood in stool, and calf pain/swelling. We walked with the patient today and he denied feeling dizzy or having any pain. Patient is continuing to use the incentive spirometer. Objective - Vital Signs/Intake and Output Vital Signs (last 24 hours): Temp Pulse Resp BP Pulse Ox 97.9 F 86 20 133/81 97 07/17/17 07:30 07/17/17 07:30 07/17/17 07:30 07/17/17 07:30 07/17/17 07:30 Intake and Output: 07/17/17 07/17/17 06:59 18:59 Intake Total 230 Balance 230 - Medications Medications: Current Medications Acetaminophen (Tylenol 325mg Tab) 650 mg PO Q6 PRN PRN Reason: Fever >100.4 F Last Admin: 07/16/17 21:32 Dose: 650 mg Docusate Sodium (Colace) 100 mg PO BID [facility] Last Admin: 07/17/17 10:04 Dose: 100 mg Piperacillin Sod/Tazobactam Sod (Zosyn 3.375 Gm Iv Premix) 3.375 gm in 50 mls @ 100 mls/hr IVPB Q6H [facility] PRN Reason: Protocol Last Admin: 07/17/17 10:05 Dose: 100 mls/hr Ondansetron HCl (Zofran Inj) 4 mg IVP Q6 PRN PRN Reason: Nausea/Vomiting Oxycodone/Acetaminophen (Percocet 5/325 Mg Tab) 1 tab PO Q4H PRN PRN Reason: Pain, moderate (4-7) Stop: 07/19/17 08:27 Pantoprazole Sodium (Protonix Inj) 40 mg IVP DAILY [facility] Last Admin: 07/17/17 10:04 Dose: 40 mg - Labs Labs: 07/17/17 08:35 07/17/17 08:35 PT 12.2 SECONDS (9.7-12.2) 07/12/17 06:18 INR 1.1 07/12/17 06:18 APTT 32 SECONDS (21-34) 07/12/17 06:18 - Additional Findings Additional findings: - Constitutional Appears: Non-toxic, No Acute Distress - Head Exam Head Exam: ATRAUMATIC, NORMAL INSPECTION, NORMOCEPHALIC - Eye Exam Eye Exam: EOMI, Normal appearance, PERRL Pupil Exam: NORMAL ACCOMODATION, PERRL - ENT Exam ENT Exam: Mucous Membranes Moist, Normal Exam - Neck Exam Neck Exam: Full ROM, Normal Inspection. absent: Lymphadenopathy - Respiratory Exam Respiratory Exam: Clear to Ausculation Bilateral, NORMAL BREATHING PATTERN - Cardiovascular Exam Cardiovascular Exam: REGULAR RHYTHM, +S1, +S2. absent: Murmur - GI/Abdominal Exam GI & Abdominal Exam: Soft, Tenderness (mild postop tednerness to palpation) Additional comments: Binder in place; we removed the binder and patient has some bruising of the abdomen with possible small seroma/hematoma to the right of the large incision site. - Extremities Exam Extremities Exam: Normal Inspection. absent: Calf Tenderness, Pedal Edema - Neurological Exam Neurological Exam: Alert, Awake, Oriented x3, normal gait - Psychiatric Exam Psychiatric exam: Normal Affect, Normal Mood - Skin Skin Exam: Dry, Intact, Normal Color, Warm Assessment and Plan - Assessment and Plan (Free Text) Plan: Lesion at Apendiceal Orifice s/p open ileocecectomy with primary anastomosis POD #3 -Surgery consulted, help appreciated - no further surgical indications per surgery team, will discuss the seroma/hematoma -GI consulted, help appreciated * large submucosal lesion at appendiceal orifice, colonic polyps. 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 Calderon, help appreciated - recommends outpatient follow up ; will speak with him today to find out if he wants to include chemo in his outpatient plan. -CT showed large lobulated ovoid lesion of unknown etiology at cecum. Large mucocele of the appendix vs adenocarcinoma of the appendix vs carcinoid tumor ( see report) -Toradol and morphine prn for pain -Zofran for nausea -CEA: 2.6 -diet per surgery team -Physical Therapy - patient is uninsured therefore he does NOT qualify for any home assistance or MEJIA Fever 103.1 rectal on 07/16 blood culture negative f/u urine culture lactic acid 1.2, 1.5 rapid flu negative Vanc 1 g IV x1 dose Zosyn 3.375 g IV Q6 Tylenol prn fever Headache Head CT: normal CT of the head. No intracranial mass, hemorrhage or evidence of acute infarct. Tylenol prn Bloody bowel movement -Negative ELIJAH -H/H stable -GI consulted, help appreciated Right lung subpleural nodule -CT shows 1.6 centimeter subpleural nodule/ lesion seen at the right lung base posteriorly -follow up CT in 6 months Enlarged prostate -Reports to have urinary hesitancy -CT showed Prominent and heterogeneous prostate measuring up to 6 centimeters -PSA total: 2.9 -free PSA: .6 -Urology consulted, help appreciated Prophylactic measure -Lovenox -Protonix -Zofran -bowel rest, NPO until passing flatus/ gas <Skip Sim - Last Filed: 07/17/17 11:04> Objective - Vital Signs/Intake and Output Vital Signs (last 24 hours): Temp Pulse Resp BP Pulse Ox 97.9 F 86 20 133/81 97 07/17/17 07:30 07/17/17 07:30 07/17/17 07:30 07/17/17 07:30 07/17/17 07:30 Intake and Output: 07/17/17 07/17/17 06:59 18:59 Intake Total 230 Balance 230 - Medications Medications: Current Medications Acetaminophen (Tylenol 325mg Tab) 650 mg PO Q6 PRN PRN Reason: Fever >100.4 F Last Admin: 07/16/17 21:32 Dose: 650 mg Docusate Sodium (Colace) 100 mg PO BID [facility] Last Admin: 07/17/17 10:04 Dose: 100 mg Piperacillin Sod/Tazobactam Sod (Zosyn 3.375 Gm Iv Premix) 3.375 gm in 50 mls @ 100 mls/hr IVPB Q6H [facility] PRN Reason: Protocol Last Admin: 07/17/17 10:05 Dose: 100 mls/hr Ondansetron HCl (Zofran Inj) 4 mg IVP Q6 PRN PRN Reason: Nausea/Vomiting Oxycodone/Acetaminophen (Percocet 5/325 Mg Tab) 1 tab PO Q4H PRN PRN Reason: Pain, moderate (4-7) Stop: 07/19/17 08:27 Pantoprazole Sodium (Protonix Inj) 40 mg IVP DAILY [facility] Last Admin: 07/17/17 10:04 Dose: 40 mg - Labs Labs: 07/17/17 08:35 07/17/17 08:35 PT 12.2 SECONDS (9.7-12.2) 07/12/17 06:18 INR 1.1 07/12/17 06:18 APTT 32 SECONDS (21-34) 07/12/17 06:18 Attending/Attestation - Attestation I have personally seen and examined this patient.: Yes I have fully participated in the care of the patient.: Yes I have reviewed all pertinent clinical information, including history, physical exam and plan: Yes Notes (Text): 07/17/17 10:54 Medical attending: Patient was seen and examined by me as well. Agree with the above note by the resident The patient was not in any acute distress when I saw him. Yesterday there was a code sepsis called after he had an elevated temperature. So far he did not have a fever again overnight. On exam we also had the patient walk with us - he did well. He did not need assistance and walked fine. We encouraged ambulation as well as incentive spirometry. He had some questions about what appears to be a small hematoma near the surgical area. The wound was clean, we will later touch base with surgery but it doesn't appear very large at this moment. The pathology report on the abdominal mass has returned and was showed a low grade appendiceal mucinous neoplasm. Per hematology/oncology the patient will need outpatient follow up. Possible he could go home relatively soon thank you Skip Sim
[2017-07-17] MEDS ORDERED: Potassium Chloride 20 mEq ER Tab PO ONE (10:45)
[2017-07-18] MEDS: Piperacill/Tazo 3.375gm in Dex 3.375 GM/50 ML BAG IVPB SCH ×4 (04:05→21:55)
[2017-07-18] MEDS: Oxycodone/Acetaminophen 5/325 mg Tab PO PRN ×3 (04:06→20:29)
[2017-07-18 07:03] LABS: BASO % 0.2 % (0.0-2.0); EOS # 0.1 K/uL (0.0-0.7); EOS % 0.9 % (0.0-4.0); HEMOGLOBIN 9.7 g/dL (12.0-18.0); LYMPH # 0.7 K/uL (1.0-4.3); LYMPH % 5.9 % (20.0-40.0); MEAN CELL VOLUME 82.9 fL (80.0-94.0); MEAN CORPUSCULAR HEMOGLOBIN 28.6 pg (27.0-31.0); MEAN CORPUSCULAR HGB CONC 34.6 g/dL (33.0-37.0); MEAN PLATELET VOLUME 7.7 fL (7.2-11.7); MONO # 1.4 K/uL (0.0-0.8); MONO % 11.4 % (0.0-10.0); NEUT % 81.6 % (50.0-75.0); PLATELET COUNT 230 K/uL (130-400); RBC 3.37 Mil/uL (4.40-5.90); WHITE BLOOD COUNT 12.3 K/uL (4.8-10.8)
[2017-07-18 07:46] LABS: ALB/GLOB RATIO 0.8 (1.0-2.1); ALBUMIN 3.1 g/dL (3.5-5.0); ALT/SGPT 14 U/L (21-72); AST/SGOT 21 U/L (17-59); BLOOD UREA NITROGEN 9 mg/dL (9-20); CALCIUM 8.4 mg/dl (8.6-10.4); GFR AFRICAN-AMERICAN > 60; GFR NON-AFRICAN AMERICAN > 60
[2017-07-18 08:32] LABS: ANISOCYTOSIS SLIGHT; BANDS 6 % (0-2); HYPOCHROMIC SLIGHT; LYMPHOCYTE 8 % (20-40); MONOCYTE 11 % (0-10); MYELOCYTE 1 % (0-0); NEUTROPHIL 74 % (50-75); PLATELET ESTIMATE NORMAL (NORMAL); POIKILOCYTOSIS SLIGHT; TOTAL CELLS COUNTED 100
[2017-07-18 08:33] LABS: LARGE PLATELETS PRESENT; TARGET CELLS SLIGHT; TEARDROP CELLS SLIGHT; TOXIC GRANULATION PRESENT
--- NOTE | 2017-07-18 14:04 | CP.PCM.PN ---
<Laly Lucas - Last Filed: 07/18/17 16:36> Subjective - Date & Time of Evaluation Date of Evaluation: 07/18/17 Time of Evaluation: 07:00 - Subjective Subjective: PGY1- progress note for Dr. Tyler Patient seen and examined at bedside and in no acute distress. Patient had a normal bowel movement yesterday. Patient denies any fevers, chills, chest pain, shortness of breath, nausea, vomiting, constipation, or diarrhea. Patient says his pain still gets up to 8/10 at its worst. Patient is using his incentive spirometer. Objective - Vital Signs/Intake and Output Vital Signs (last 24 hours): Temp Pulse Resp BP Pulse Ox 98.4 F 80 20 112/76 97 07/18/17 07:26 07/18/17 07:26 07/18/17 07:26 07/18/17 07:26 07/18/17 07:26 Intake and Output: 07/18/17 07/18/17 06:59 18:59 Intake Total 170 Balance 170 - Medications Medications: Current Medications Acetaminophen (Tylenol 325mg Tab) 650 mg PO Q6 PRN PRN Reason: Fever >100.4 F Last Admin: 07/17/17 16:09 Dose: 650 mg Docusate Sodium (Colace) 100 mg PO BID [facility] Last Admin: 07/18/17 10:55 Dose: 100 mg Piperacillin Sod/Tazobactam Sod (Zosyn 3.375 Gm Iv Premix) 3.375 gm in 50 mls @ 100 mls/hr IVPB Q6H [facility] PRN Reason: Protocol Last Admin: 07/18/17 10:56 Dose: 100 mls/hr Ondansetron HCl (Zofran Inj) 4 mg IVP Q6 PRN PRN Reason: Nausea/Vomiting Oxycodone/Acetaminophen (Percocet 5/325 Mg Tab) 1 tab PO Q4H PRN PRN Reason: Pain, moderate (4-7) Stop: 07/19/17 08:27 Last Admin: 07/18/17 10:54 Dose: 1 tab Pantoprazole Sodium (Protonix Inj) 40 mg IVP DAILY [facility] Last Admin: 07/18/17 10:55 Dose: 40 mg - Labs Labs: 07/18/17 06:56 07/18/17 06:56 PT 12.2 SECONDS (9.7-12.2) 07/12/17 06:18 INR 1.1 07/12/17 06:18 APTT 32 SECONDS (21-34) 07/12/17 06:18 - Additional Findings Additional findings: - Additional Findings Additional findings: - Constitutional Appears: Non-toxic, No Acute Distress - Head Exam Head Exam: ATRAUMATIC, NORMAL INSPECTION, NORMOCEPHALIC - Eye Exam Eye Exam: EOMI, Normal appearance, PERRL Pupil Exam: NORMAL ACCOMODATION, PERRL - ENT Exam ENT Exam: Mucous Membranes Moist, Normal Exam - Neck Exam Neck Exam: Full ROM, Normal Inspection. absent: Lymphadenopathy - Respiratory Exam Respiratory Exam: Clear to Ausculation Bilateral, NORMAL BREATHING PATTERN - Cardiovascular Exam Cardiovascular Exam: REGULAR RHYTHM, +S1, +S2. absent: Murmur - GI/Abdominal Exam GI & Abdominal Exam: Soft, Tenderness (mild postop tednerness to palpation) Additional comments: bruising of the abdomen with possible small seroma/hematoma to the right of the large incision site, honorio intact - Extremities Exam Extremities Exam: Normal Inspection. absent: Calf Tenderness, Pedal Edema - Neurological Exam Neurological Exam: Alert, Awake, Oriented x3, normal gait - Psychiatric Exam Psychiatric exam: Normal Affect, Normal Mood - Skin Skin Exam: Dry, Intact, Normal Color, Warm Assessment and Plan - Assessment and Plan (Free Text) Assessment: Lesion at Apendiceal Orifice s/p open ileocecectomy with primary anastomosis POD #6 -Surgery consulted, help appreciated - no further surgical indications per surgery team, will discuss the seroma/hematoma -GI consulted, help appreciated * large submucosal lesion at appendiceal orifice, colonic polyps. 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 Calderon, help appreciated - recommends outpatient follow up -CT showed large lobulated ovoid lesion of unknown etiology at cecum. Large mucocele of the appendix vs adenocarcinoma of the appendix vs carcinoid tumor ( see report) -Toradol and morphine prn for pain -Zofran for nausea -CEA: 2.6 -diet per surgery team -Physical Therapy - patient is uninsured therefore he does NOT qualify for any home assistance or MEJIA Fever afebrile today last elevated temp 100.4 on 07/17/17 on 16:09 103.1 rectal on 07/16 blood culture negative 48 hrs urine culture negative 48 hrs lactic acid 1.2, 1.5 rapid flu negative Vanc 1 g IV x1 dose Zosyn 3.375 g IV Q6 Tylenol prn fever Headache Head CT: normal CT of the head. No intracranial mass, hemorrhage or evidence of acute infarct. Tylenol prn Bloody bowel movement -Negative ELIJAH -H/H stable -GI consulted, help appreciated Right lung subpleural nodule -CT shows 1.6 centimeter subpleural nodule/ lesion seen at the right lung base posteriorly -follow up CT in 6 months Enlarged prostate -Reports to have urinary hesitancy -CT showed Prominent and heterogeneous prostate measuring up to 6 centimeters -PSA total: 2.9 -free PSA: .6 -patient to follow up with urology as an outpatient Prophylactic measure -Lovenox -Protonix -Zofran -Regular diet <Nitish Tyler - Last Filed: 07/18/17 18:56> Objective - Vital Signs/Intake and Output Vital Signs (last 24 hours): Temp Pulse Resp BP Pulse Ox 99.7 F H 87 20 105/69 98 07/18/17 15:00 07/18/17 15:00 07/18/17 15:00 07/18/17 15:00 07/18/17 15:00 Intake and Output: 07/18/17 07/18/17 06:59 18:59 Intake Total 170 530 Balance 170 530 - Medications Medications: Current Medications Acetaminophen (Tylenol 325mg Tab) 650 mg PO Q6 PRN PRN Reason: Fever >100.4 F Last Admin: 07/17/17 16:09 Dose: 650 mg Docusate Sodium (Colace) 100 mg PO BID [facility] Last Admin: 07/18/17 17:01 Dose: 100 mg Piperacillin Sod/Tazobactam Sod (Zosyn 3.375 Gm Iv Premix) 3.375 gm in 50 mls @ 100 mls/hr IVPB Q6H [facility] PRN Reason: Protocol Last Admin: 07/18/17 16:56 Dose: 100 mls/hr Ondansetron HCl (Zofran Inj) 4 mg IVP Q6 PRN PRN Reason: Nausea/Vomiting Oxycodone/Acetaminophen (Percocet 5/325 Mg Tab) 1 tab PO Q4H PRN PRN Reason: Pain, moderate (4-7) Stop: 07/19/17 08:27 Last Admin: 07/18/17 10:54 Dose: 1 tab Pantoprazole Sodium (Protonix Ec Tab) 40 mg PO DAILY [facility] - Labs Labs: 07/18/17 06:56 07/18/17 06:56 PT 12.2 SECONDS (9.7-12.2) 07/12/17 06:18 INR 1.1 07/12/17 06:18 APTT 32 SECONDS (21-34) 07/12/17 06:18 Attending/Attestation - Attestation I have personally seen and examined this patient.: Yes I have fully participated in the care of the patient.: Yes I have reviewed all pertinent clinical information, including history, physical exam and plan: Yes Notes (Text): 07/18/17 18:52 Patient was seen and examined at 11:45 AM Exam, assessment and plan were gone over with the resident. Also on ROS: Complained of chest pain generalized upon walking earlier Moved his bowels Tolerating diet Soreness at the incision site Pain in the incision site when he pushes upon urination Also on Exam: Surgical incision site without wound dehiscence or signs of surrounding cellulitis STAT EKG and Troponins were not remarkable Surgery has held Lovenox Patient has been getting up and walking He will need to follow up with Urology Dr. Dolores Stinson as an outpatient for enlarged prostate. As long as there are NO fevers and the blood culture continues to remain negative then we will likely discharge patient to home on 07/19/17. Nitish Tyler D.O.
--- NOTE | 2017-07-18 17:38 | CP.PCM.PN ---
Subjective - Date & Time of Evaluation Date of Evaluation: 07/18/17 Time of Evaluation: 07:10 - Subjective Subjective: Patient seen and examined at bedside--no adverse events overngith. Patient had a temp of 100.4 at 4PM yesterday but has been afebrile since. Patient complains of persistent pain in the RLQ but denies nausea, vomiting, or any other symptoms. Objective - Vital Signs/Intake and Output Vital Signs (last 24 hours): Temp Pulse Resp BP Pulse Ox 99.7 F H 87 20 105/69 98 07/18/17 15:00 07/18/17 15:00 07/18/17 15:00 07/18/17 15:00 07/18/17 15:00 Intake and Output: 07/18/17 07/18/17 06:59 18:59 Intake Total 170 530 Balance 170 530 - Medications Medications: Current Medications Acetaminophen (Tylenol 325mg Tab) 650 mg PO Q6 PRN PRN Reason: Fever >100.4 F Last Admin: 07/17/17 16:09 Dose: 650 mg Docusate Sodium (Colace) 100 mg PO BID [facility] Last Admin: 07/18/17 17:01 Dose: 100 mg Piperacillin Sod/Tazobactam Sod (Zosyn 3.375 Gm Iv Premix) 3.375 gm in 50 mls @ 100 mls/hr IVPB Q6H [facility] PRN Reason: Protocol Last Admin: 07/18/17 16:56 Dose: 100 mls/hr Ondansetron HCl (Zofran Inj) 4 mg IVP Q6 PRN PRN Reason: Nausea/Vomiting Oxycodone/Acetaminophen (Percocet 5/325 Mg Tab) 1 tab PO Q4H PRN PRN Reason: Pain, moderate (4-7) Stop: 07/19/17 08:27 Last Admin: 07/18/17 10:54 Dose: 1 tab Pantoprazole Sodium (Protonix Ec Tab) 40 mg PO DAILY [facility] - Labs Labs: 07/18/17 06:56 07/18/17 06:56 PT 12.2 SECONDS (9.7-12.2) 07/12/17 06:18 INR 1.1 07/12/17 06:18 APTT 32 SECONDS (21-34) 07/12/17 06:18 - Constitutional Appears: Well, Non-toxic, No Acute Distress - Head Exam Head Exam: ATRAUMATIC, NORMOCEPHALIC - Eye Exam Eye Exam: Normal appearance. absent: Conjunctival injection, Scleral icterus - ENT Exam ENT Exam: Mucous Membranes Moist, Normal Oropharynx - Respiratory Exam Respiratory Exam: NORMAL BREATHING PATTERN. absent: Accessory Muscle Use, Respiratory Distress - Cardiovascular Exam Cardiovascular Exam: RRR - GI/Abdominal Exam GI & Abdominal Exam: Soft, Tenderness (moderate TTP in the RLQ). absent: Distended Additional comments: incisions well approximated with honorio. area of induration to the right of the inferior pole of the midline incision--no area of fluctuance or expressible drainage, surrounding ecchymosis from the anticoagulation shots. - Extremities Exam Extremities Exam: absent: Calf Tenderness, Pedal Edema, Tenderness - Neurological Exam Neurological Exam: Alert, Awake, Oriented x3 - Skin Skin Exam: Dry, Intact, Normal Color, Warm Additional comments: except as noted above Assessment and Plan - Assessment and Plan (Free Text) Assessment: 56M with low grade appendiceal mucinous neoplasm s/p ileocecectomy POD#6 Plan: -Continue to monitor as an inpatient -Monitor for any further fevers -IV antibiotics -Will monitor for possible seroma vs hematoma -PRN pain medication and nausea medication -encouragem ambulation and incentive spirometer use -continue regular diet Discussed with Dr. Sidney Carrera [email or web address]
[2017-07-19] MEDS: Piperacill/Tazo 3.375gm in Dex 3.375 GM/50 ML BAG IVPB SCH ×2 (04:25→10:11)
[2017-07-19] MEDS: Oxycodone/Acetaminophen 5/325 mg Tab PO PRN (04:29)
[2017-07-19 07:27] LABS: BASO % 0.2 % (0.0-2.0); EOS # 0.1 K/uL (0.0-0.7); EOS % 0.6 % (0.0-4.0); HEMOGLOBIN 9.7 g/dL (12.0-18.0); LYMPH % 7.3 % (20.0-40.0); MEAN CELL VOLUME 83.2 fL (80.0-94.0); MEAN CORPUSCULAR HEMOGLOBIN 28.4 pg (27.0-31.0); MEAN CORPUSCULAR HGB CONC 34.2 g/dL (33.0-37.0); MEAN PLATELET VOLUME 7.4 fL (7.2-11.7); MONO # 1.4 K/uL (0.0-0.8); MONO % 10.1 % (0.0-10.0); NEUT % 81.8 % (50.0-75.0); PLATELET COUNT 289 K/uL (130-400); RBC 3.43 Mil/uL (4.40-5.90); RED CELL DISTRIBUTION WIDTH 13.1 % (11.5-14.5); WHITE BLOOD COUNT 13.5 K/uL (4.8-10.8)
[2017-07-19 07:35] VITALS: BP 111/72; PULSE 86; TEMP 98.9; O2SAT 97
[2017-07-19 08:17] LABS: ALB/GLOB RATIO 0.8 (1.0-2.1); ALBUMIN 3.1 g/dL (3.5-5.0); ALT/SGPT 20 U/L (21-72); AST/SGOT 32 U/L (17-59); BLOOD UREA NITROGEN 9 mg/dL (9-20); CALCIUM 8.4 mg/dl (8.6-10.4); GFR AFRICAN-AMERICAN > 60; GFR NON-AFRICAN AMERICAN > 60
--- NOTE | 2017-07-19 09:33 | CP.PCM.PN ---
Subjective - Date & Time of Evaluation Date of Evaluation: 07/19/17 Time of Evaluation: 09:30 - Subjective Subjective: General Surgery - Dr. Little Pt S*E. NIKI. Pt states he feels better. He is tolerating regular diet. Ambulating. He states no BM since tuesday. No fevers/chills, Sob/Chest pain, Nausea/vomiting. Objective - Vital Signs/Intake and Output Vital Signs (last 24 hours): Temp Pulse Resp BP Pulse Ox 98.9 F 86 20 111/72 97 07/19/17 07:29 07/19/17 07:29 07/19/17 07:29 07/19/17 07:29 07/19/17 07:29 Intake and Output: 07/19/17 07/19/17 06:59 18:59 Intake Total 850 Balance 850 - Medications Medications: Current Medications Acetaminophen (Tylenol 325mg Tab) 650 mg PO Q6 PRN PRN Reason: Fever >100.4 F Last Admin: 07/17/17 16:09 Dose: 650 mg Docusate Sodium (Colace) 100 mg PO BID [facility] Last Admin: 07/18/17 17:01 Dose: 100 mg Piperacillin Sod/Tazobactam Sod (Zosyn 3.375 Gm Iv Premix) 3.375 gm in 50 mls @ 100 mls/hr IVPB Q6H [facility] PRN Reason: Protocol Last Admin: 07/19/17 04:25 Dose: 100 mls/hr Ondansetron HCl (Zofran Inj) 4 mg IVP Q6 PRN PRN Reason: Nausea/Vomiting Pantoprazole Sodium (Protonix Ec Tab) 40 mg PO DAILY [facility] - Labs Labs: 07/19/17 07:10 07/19/17 07:10 PT 12.2 SECONDS (9.7-12.2) 07/12/17 06:18 INR 1.1 07/12/17 06:18 APTT 32 SECONDS (21-34) 07/12/17 06:18 - Constitutional Appears: No Acute Distress - Head Exam Head Exam: ATRAUMATIC, NORMAL INSPECTION, NORMOCEPHALIC - Eye Exam Eye Exam: Normal appearance - Respiratory Exam Respiratory Exam: NORMAL BREATHING PATTERN. absent: Respiratory Distress - GI/Abdominal Exam GI & Abdominal Exam: Soft. absent: Distended, Firm, Rigid, Tenderness, Hernia, Rebound Additional comments: echhymosis - Neurological Exam Neurological Exam: Alert, Oriented x3 - Psychiatric Exam Psychiatric exam: Normal Affect, Normal Mood - Skin Skin Exam: Dry, Intact Assessment and Plan - Assessment and Plan (Free Text) Assessment: 56M with low grade appendiceal mucinous neoplasm s/p ileocecectomy POD#7 Plan: -Continue Regular diet -Pain control PRN -Encourage OOB/Ambulation -Stool softeners OBINNA Mason PGY3
[2017-07-19] MEDS ORDERED: Pantoprazole 40 mg EC Tab PO SCH (10:00)
[2017-07-19 10:15] LABS: BANDS 9 % (0-2); EOSINOPHIL 3 % (0-4); HYPOCHROMIC SLIGHT; LYMPHOCYTE 8 % (20-40); MONOCYTE 4 % (0-10); MYELOCYTE 2 % (0-0); NEUTROPHIL 72 % (50-75); PLATELET ESTIMATE NORMAL (NORMAL); POIKILOCYTOSIS SLIGHT; REACTIVE LYMPHOCYTES 2 % (0-0); TARGET CELLS SLIGHT; TOTAL CELLS COUNTED 100
[2017-07-19] MEDS ORDERED: Pneumococcal 23-Valent Vaccine IM ONE (14:20)
--- NOTE | 2017-07-19 15:10 | CP.PCM.DIS ---
<Laly Lucas - Last Filed: 07/19/17 16:56> Provider - Provider Date of Admission: 07/10/17 17:56 Attending physician: Nitish Tyler MD Consults: Dr. Little (surgery) Dr. Calderon (heme/onc) Dr. 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 Calderon (2) Enlarged prostate Status: Acute Comment: Patient to follow up with Dr. Stinson (3) Nodule of right lung Status: Acute Comment: Patient to follow up with clinic and have repeat CT in 6 months Hospital Course - Lab Results Lab Results: Micro Results 07/16/17 09:00 Blood Blood Culture - Preliminary NO GROWTH AFTER 3 DAYS 07/16/17 09:40 Blood Blood Culture - Preliminary NO GROWTH AFTER 3 DAYS 07/15/17 17:15 Blood-Venous Blood Culture - Preliminary NO GROWTH AFTER 3 DAYS 07/15/17 16:45 Blood-Venous Blood Culture - Preliminary NO GROWTH AFTER 3 DAYS 07/15/17 Unknown Urine Urine Culture - Final No Growth (<1,000 CFU/ML) 07/10/17 13:19 Urine,Clean Catch Urine Culture - Final No Growth (<1,000 CFU/ML) Most Recent Lab Values WBC 13.5 K/uL (4.8-10.8) H 07/19/17 07:10 RBC 3.43 Mil/uL (4.40-5.90) L 07/19/17 07:10 Hgb 9.7 g/dL (12.0-18.0) L 07/19/17 07:10 Hct 28.5 % (35.0-51.0) L 07/19/17 07:10 MCV 83.2 fL (80.0-94.0) 07/19/17 07:10 MCH 28.4 pg (27.0-31.0) 07/19/17 07:10 MCHC 34.2 g/dL (33.0-37.0) 07/19/17 07:10 RDW 13.1 % (11.5-14.5) 07/19/17 07:10 Plt Count 289 K/uL (130-400) 07/19/17 07:10 MPV 7.4 fL (7.2-11.7) 07/19/17 07:10 Neut % (Auto) 81.8 % (50.0-75.0) H 07/19/17 07:10 Lymph % (Auto) 7.3 % (20.0-40.0) L 07/19/17 07:10 [place] % (Auto) 10.1 % (0.0-10.0) H 07/19/17 07:10 Eos % (Auto) 0.6 % (0.0-4.0) 07/19/17 07:10 Baso % (Auto) 0.2 % (0.0-2.0) 07/19/17 07:10 Neut # (Auto) 11.0 K/uL (1.8-7.0) H 07/19/17 07:10 Lymph # (Auto) 1.0 K/uL (1.0-4.3) 07/19/17 07:10 Gilpin # (Auto) 1.4 K/uL (0.0-0.8) H 07/19/17 07:10 Eos # (Auto) 0.1 K/uL (0.0-0.7) 07/19/17 07:10 Baso # (Auto) 0.0 K/uL (0.0-0.2) 07/19/17 07:10 Neutrophils % (Manual) 72 % (50-75) 07/19/17 07:10 Band Neutrophils % 9 % (0-2) H 07/19/17 07:10 Lymphocytes % (Manual) 8 % (20-40) L 07/19/17 07:10 Reactive Lymphs % 2 % (0-0) H 07/19/17 07:10 Monocytes % (Manual) 4 % (0-10) 07/19/17 07:10 Eosinophils % (Manual) 3 % (0-4) 07/19/17 07:10 Myelocytes % 2 % (0-0) H 07/19/17 07:10 Toxic Granulation Present 07/18/17 06:56 Platelet Estimate Normal (NORMAL) 07/19/17 07:10 Large Platelets Present 07/18/17 06:56 RBC Morphology Normal 07/17/17 08:35 Hypochromasia (manual) Slight 07/19/17 07:10 Poikilocytosis (manual Slight 07/19/17 07:10 Anisocytosis (manual) Slight 07/18/17 06:56 Target Cells Slight 07/19/17 07:10 Tear Drop Cells Slight 07/18/17 06:56 PT 12.2 SECONDS (9.7-12.2) 07/12/17 06:18 INR 1.1 07/12/17 06:18 APTT 32 SECONDS (21-34) 07/12/17 06:18 Sodium 133 mmol/L (132-148) 07/19/17 07:10 Potassium 4.2 mmol/L (3.6-5.2) 07/19/17 07:10 Chloride 95 mmol/L (98-107) L 07/19/17 07:10 Carbon Dioxide 27 mmol/L (22-30) 07/19/17 07:10 Anion Gap 15 (10-20) 07/19/17 07:10 BUN 9 mg/dL (9-20) 07/19/17 07:10 Creatinine 1.0 mg/dL (0.8-1.5) 07/19/17 07:10 Est GFR ( Amer) > 60 07/19/17 07:10 Est GFR (Non-Af Amer) > 60 07/19/17 07:10 Random Glucose 121 mg/dL (75-110) H 07/19/17 07:10 Lactic Acid 1.5 mmol/L (0.7-2.1) 07/16/17 20:35 Calcium 8.4 mg/dl (8.6-10.4) L 07/19/17 07:10 Phosphorus 4.0 mg/dL (2.5-4.5) 07/19/17 07:10 Magnesium 1.9 mg/dL (1.6-2.3) 07/19/17 07:10 Total Bilirubin 0.7 mg/dL (0.2-1.3) 07/19/17 07:10 AST 32 U/L (17-59) 07/19/17 07:10 ALT 20 U/L (21-72) L D 07/19/17 07:10 Alkaline Phosphatase 125 U/L (38-126) 07/19/17 07:10 Troponin I < 0.0120 ng/mL (0.00-0.120) 07/18/17 12:51 Total Protein 7.0 g/dL (6.3-8.3) 07/19/17 07:10 Albumin 3.1 g/dL (3.5-5.0) L 07/19/17 07:10 Globulin 3.8 gm/dL (2.2-3.9) 07/19/17 07:10 Albumin/Globulin Ratio 0.8 (1.0-2.1) L 07/19/17 07:10 Lipase 190 U/L (23-300) 07/10/17 13:41 Carcinoembryonic Ag 2.6 ng/mL (0-3.0) 07/12/17 06:18 Free PSA 0.6 ng/mL 07/12/17 10:51 % Free PSA 21 % (calc) (>25) L 07/12/17 10:51 Total PSA 2.9 ng/mL (< or = 4.0) 07/12/17 10:51 Urine Color Yellow (YELLOW) 07/10/17 13:41 Urine Clarity Clear (Clear) 07/10/17 13:41 Urine pH 5.0 (5.0-8.0) 07/10/17 13:41 Ur Specific Miles 1.018 (1.003-1.030) 07/10/17 13:41 Urine Protein Negative mg/dL (NEGATIVE) 07/10/17 13:41 Urine Glucose (UA) Normal mg/dL (Normal) 07/10/17 13:41 Urine Ketones Negative mg/dL (NEGATIVE) 07/10/17 13:41 Urine Blood Negative (NEGATIVE) 07/10/17 13:41 Urine Nitrate Negative (NEGATIVE) 07/10/17 13:41 Urine Bilirubin Negative (NEGATIVE) 07/10/17 13:41 Urine Urobilinogen Normal mg/dL (0.2-1.0) 07/10/17 13:41 Ur Leukocyte Esterase Neg Odalys/uL (Negative) 07/10/17 13:41 Urine WBC (Auto) < 1 /hpf (0-5) 07/10/17 13:41 Influenza Typ A,B (EIA) Negative for flu a/b (NEGATIVE) 07/15/17 17:55 Blood Type O POSITIVE 07/12/17 10:51 Antibody Screen Negative 07/12/17 10:51 - Hospital Course Hospital Course: 56 year old male presented to [facility] on 07/10/17 with right sided abdominal pain. CT of the abdomen/pelvis displayed multiple findings including large ovoid lesion generating differential diagnosis of mucocele of appendix, adenocarcinoma of appendix, carcinoid tumor of appendix or exophytic lesion of cecum. The prostate was enlarged at 6.6 cm and a 1.6 cm subpleural lesion/ nodule was found in the right posterior lung. Dr. Little from surgery and Dr. Betts from GI were consulted. Colonoscopy was recommended and preformed on 07/12 which showed submucosal lesions at appendiceal orifice and polyps of rectum. Biopsies were taken which showed tubular adenoma of the ascending colon and hyperplastic polyp of the rectum. Laparoscopic converted to open ileocecectomy with primary anastomosis was successfully completed by Dr. Little on 07/12/17. 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 Dr. Calderon from [facility] was consulted who recommended follow up as outpatient for surveillance. Post-op patient complained of a non-remitting headache. Head CT was ordered which came back completely benign. Patient remained in hospital until 07/19/17 initially due to lack of stool production with progression to bloody bowel movements. ELIJAH was negative for occult blood and H/H remained stable at Hgb 10.8 throughout stay. Patient also occasionally became febrile with the most recent instance being 100.4 on . Patient was afebrile upon remainder of stay. During stay patient was treated with lovenox 40mg SC daily, Toradol 30mg IVP Q6H Jonathan, MS 4mg IVP Q3HPRN, Zofran 4mg IVP Q6 PRN, and protonix 40 mg IVP daily. Patient's labs were routinely examined with showed post-op mild leukocytosis ( averaging 12.6) as well as hemoglobin levels averaging 10.8 throughout stay. Patient's urine and blood cultures consistently showed no growth after 4 days. Upon discharge, patient was afebrile with down trending white count and markedly reduced abdominal pain. Patient had consistently moved solid, non- bloody bowels. Patient was given instructions to follow up with surgery for staple removal. Patient also explained to follow up with Dr. Calderon (heme/onc), Dr. Stinson (urology), and [facility] for general care and for follow up CT of lung nodule in January 2018. This is a summary of the patient's hospital course, please see chart for full details. Discharge Exam - Additional Findings Additional findings: - Constitutional Appears: Non-toxic, No Acute Distress - Head Exam Head Exam: ATRAUMATIC, NORMAL INSPECTION, NORMOCEPHALIC - Eye Exam Eye Exam: EOMI, Normal appearance, PERRL Pupil Exam: NORMAL ACCOMODATION, PERRL - ENT Exam ENT Exam: Mucous Membranes Moist, Normal Exam - Neck Exam Neck Exam: Full ROM, Normal Inspection. absent: Lymphadenopathy - Respiratory Exam Respiratory Exam: Clear to Ausculation Bilateral, NORMAL BREATHING PATTERN - Cardiovascular Exam Cardiovascular Exam: REGULAR RHYTHM, +S1, +S2. absent: Murmur - GI/Abdominal Exam GI & Abdominal Exam: Soft, Tenderness (mild postop tednerness to palpation) Additional comments: bruising of the abdomen around incision, honorio c/d/i - Extremities Exam Extremities Exam: Normal Inspection. absent: Calf Tenderness, Pedal Edema - Neurological Exam Neurological Exam: Alert, Awake, Oriented x3, normal gait - Psychiatric Exam Psychiatric exam: Normal Affect, Normal Mood - Skin Skin Exam: Dry, Intact, Normal Color, Warm Discharge Plan - Discharge Medications Prescriptions: Docusate [Colace] 100 mg PO BID #30 cap - Follow Up Plan Condition: GUARDED Disposition: HOME/ ROUTINE Instructions: Docusate Additional Instructions: Patient stable per discharge as per Dr. Tyler and from surgical standpoint. Patient should follow up with Dr. Little early next week (07/25 or 07/26). He should keep the abdominal binder on at all times. He can give himself a sponge bath but must keep the surgical site absolutely dry. Patient should also follow up with Dr. Calderon (hematology/oncology) within [address] Stinson (urology) within 2 weeks. Patient should follow up with [facility] ([phone]) for coordination of his care and surveillance of his recent mass. He should make this appointment with the [facility] to take place in the next 7 to 10 days. He will be provided with referrals for both Dr. Calderon and Dr. Stinson through the clinic. Patient will need to have a follow up CT chest in January 2018 to follow up a 1.6cm right lung nodule. Patient to take Colace 100mg po BID for constipation. If patient is unable to afford medication, he may supplement his diet with 8oz of prune juice twice a day as needed for constipation. Patient may take Tylenol 650mg every 6 hours as needed for pain. Patient to return to ED if symptoms return. Patient explained instructions who understands and agrees. Referrals: Calos Calderon MD [Staff Provider] - Jacqueline Little MD [Staff Provider] - Wero Stinson MD [Staff Provider] - Chari Barton MD [Staff Provider] - <Nitish Tyler - Last Filed: 07/19/17 19:14> Provider - Provider Date of Admission: 07/10/17 17:56 Attending physician: Nitish Tyler MD Hospital Course - Lab Results Lab Results: Micro Results 07/15/17 17:15 Blood-Venous Blood Culture - Preliminary NO GROWTH AFTER 4 DAYS 07/15/17 16:45 Blood-Venous Blood Culture - Preliminary NO GROWTH AFTER 4 DAYS 07/16/17 09:00 Blood Blood Culture - Preliminary NO GROWTH AFTER 3 DAYS 07/16/17 09:40 Blood Blood Culture - Preliminary NO GROWTH AFTER 3 DAYS 07/15/17 Unknown Urine Urine Culture - Final No Growth (<1,000 CFU/ML) 07/10/17 13:19 Urine,Clean Catch Urine Culture - Final No Growth (<1,000 CFU/ML) Most Recent Lab Values WBC 13.5 K/uL (4.8-10.8) H 07/19/17 07:10 RBC 3.43 Mil/uL (4.40-5.90) L 07/19/17 07:10 Hgb 9.7 g/dL (12.0-18.0) L 07/19/17 07:10 Hct 28.5 % (35.0-51.0) L 07/19/17 07:10 MCV 83.2 fL (80.0-94.0) 07/19/17 07:10 MCH 28.4 pg (27.0-31.0) 07/19/17 07:10 MCHC 34.2 g/dL (33.0-37.0) 07/19/17 07:10 RDW 13.1 % (11.5-14.5) 07/19/17 07:10 Plt Count 289 K/uL (130-400) 07/19/17 07:10 MPV 7.4 fL (7.2-11.7) 07/19/17 07:10 Neut % (Auto) 81.8 % (50.0-75.0) H 07/19/17 07:10 Lymph % (Auto) 7.3 % (20.0-40.0) L 07/19/17 07:10 [place] % (Auto) 10.1 % (0.0-10.0) H 07/19/17 07:10 Eos % (Auto) 0.6 % (0.0-4.0) 07/19/17 07:10 Baso % (Auto) 0.2 % (0.0-2.0) 07/19/17 07:10 Neut # (Auto) 11.0 K/uL (1.8-7.0) H 07/19/17 07:10 Lymph # (Auto) 1.0 K/uL (1.0-4.3) 07/19/17 07:10 [place] # (Auto) 1.4 K/uL (0.0-0.8) H 07/19/17 07:10 Eos # (Auto) 0.1 K/uL (0.0-0.7) 07/19/17 07:10 Baso # (Auto) 0.0 K/uL (0.0-0.2) 07/19/17 07:10 Neutrophils % (Manual) 72 % (50-75) 07/19/17 07:10 Band Neutrophils % 9 % (0-2) H 07/19/17 07:10 Lymphocytes % (Manual) 8 % (20-40) L 07/19/17 07:10 Reactive Lymphs % 2 % (0-0) H 07/19/17 07:10 Monocytes % (Manual) 4 % (0-10) 07/19/17 07:10 Eosinophils % (Manual) 3 % (0-4) 07/19/17 07:10 Myelocytes % 2 % (0-0) H 07/19/17 07:10 Toxic Granulation Present 07/18/17 06:56 Platelet Estimate Normal (NORMAL) 07/19/17 07:10 Large Platelets Present 07/18/17 06:56 RBC Morphology Normal 07/17/17 08:35 Hypochromasia (manual) Slight 07/19/17 07:10 Poikilocytosis (manual Slight 07/19/17 07:10 Anisocytosis (manual) Slight 07/18/17 06:56 Target Cells Slight 07/19/17 07:10 Tear Drop Cells Slight 07/18/17 06:56 PT 12.2 SECONDS (9.7-12.2) 07/12/17 06:18 INR 1.1 07/12/17 06:18 APTT 32 SECONDS (21-34) 07/12/17 06:18 Sodium 133 mmol/L (132-148) 07/19/17 07:10 Potassium 4.2 mmol/L (3.6-5.2) 07/19/17 07:10 Chloride 95 mmol/L (98-107) L 07/19/17 07:10 Carbon Dioxide 27 mmol/L (22-30) 07/19/17 07:10 Anion Gap 15 (10-20) 07/19/17 07:10 BUN 9 mg/dL (9-20) 07/19/17 07:10 Creatinine 1.0 mg/dL (0.8-1.5) 07/19/17 07:10 Est GFR ( Amer) > 60 07/19/17 07:10 Est GFR (Non-Af Amer) > 60 07/19/17 07:10 Random Glucose 121 mg/dL (75-110) H 07/19/17 07:10 Lactic Acid 1.5 mmol/L (0.7-2.1) 07/16/17 20:35 Calcium 8.4 mg/dl (8.6-10.4) L 07/19/17 07:10 Phosphorus 4.0 mg/dL (2.5-4.5) 07/19/17 07:10 Magnesium 1.9 mg/dL (1.6-2.3) 07/19/17 07:10 Total Bilirubin 0.7 mg/dL (0.2-1.3) 07/19/17 07:10 AST 32 U/L (17-59) 07/19/17 07:10 ALT 20 U/L (21-72) L D 07/19/17 07:10 Alkaline Phosphatase 125 U/L (38-126) 07/19/17 07:10 Troponin I < 0.0120 ng/mL (0.00-0.120) 07/18/17 12:51 Total Protein 7.0 g/dL (6.3-8.3) 07/19/17 07:10 Albumin 3.1 g/dL (3.5-5.0) L 07/19/17 07:10 Globulin 3.8 gm/dL (2.2-3.9) 07/19/17 07:10 Albumin/Globulin Ratio 0.8 (1.0-2.1) L 07/19/17 07:10 Lipase 190 U/L (23-300) 07/10/17 13:41 Carcinoembryonic Ag 2.6 ng/mL (0-3.0) 07/12/17 06:18 Free PSA 0.6 ng/mL 07/12/17 10:51 % Free PSA 21 % (calc) (>25) L 07/12/17 10:51 Total PSA 2.9 ng/mL (< or = 4.0) 07/12/17 10:51 Urine Color Yellow (YELLOW) 07/10/17 13:41 Urine Clarity Clear (Clear) 07/10/17 13:41 Urine pH 5.0 (5.0-8.0) 07/10/17 13:41 Ur Specific Miles 1.018 (1.003-1.030) 07/10/17 13:41 Urine Protein Negative mg/dL (NEGATIVE) 07/10/17 13:41 Urine Glucose (UA) Normal mg/dL (Normal) 07/10/17 13:41 Urine Ketones Negative mg/dL (NEGATIVE) 07/10/17 13:41 Urine Blood Negative (NEGATIVE) 07/10/17 13:41 Urine Nitrate Negative (NEGATIVE) 07/10/17 13:41 Urine Bilirubin Negative (NEGATIVE) 07/10/17 13:41 Urine Urobilinogen Normal mg/dL (0.2-1.0) 07/10/17 13:41 Ur Leukocyte Esterase Neg Odalys/uL (Negative) 07/10/17 13:41 Urine WBC (Auto) < 1 /hpf (0-5) 07/10/17 13:41 Influenza Typ A,B (EIA) Negative for flu a/b (NEGATIVE) 07/15/17 17:55 Blood Type O POSITIVE 07/12/17 10:51 Antibody Screen Negative 07/12/17 10:51 Attending/Attestation - Attestation I have personally seen and examined this patient.: Yes I have fully participated in the care of the patient.: Yes I have reviewed all pertinent clinical information, including history, physical exam and plan: Yes Notes (Text): 07/19/17 19:12 Patient was seen and examined shortly after resident. Exam, assessment and plan, and discharge instructions were gone over with the resident. With the help of Nurse Rosario who translated citizen of [place], I thoroughly went over the discharge instructions with the patient and he expressed understanding. Nitish Tyler D.O.
== END 2017-07-19 16:12 | disposition home or self-care (01) | DRG 149 ==
LOC: C.ER 12:13 → C.9E 17:56 → C.3T 18:38
PROVIDERS: ADMIT Family Medicine; ATTEND Family Medicine
PROC: 0DTF0ZZ Resection of Right Large Intestine, Open Approach (ICD-10-PCS; 2017-07-12)
PROC: 0DBP8ZX Excision of Rectum, Via Natural or Artificial Opening Endoscopic, Diagnostic (ICD-10-PCS; 2017-07-12)
PROC: 0DBK8ZX Excision of Ascending Colon, Via Natural or Artificial Opening Endoscopic, Diagnostic (ICD-10-PCS; principal; 2017-07-12 07:37)
DX: D12.2 Benign neoplasm of ascending colon (principal); K62.1 Rectal polyp; K29.70 Gastritis, unspecified, without bleeding; D72.829 Elevated white blood cell count, unspecified; N40.1 Benign prostatic hyperplasia with lower urinary tract symptoms; Q43.8 Other specified congenital malformations of intestine; N28.9 Disorder of kidney and ureter, unspecified

== ENCOUNTER 2017-07-22 23:38 | Emergency (ER) | payer OTHER ==
[2017-07-22 23:57] VITALS: RESP 20; TEMP 98
--- NOTE | 2017-07-23 | C.PDOC ---
History Of Present Illness Patient presents to ED for complaints of active bleeding from colon resection surgical site that he had on July 12 with . 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 Patient also reports bleeding started around 8PM. Denies fever, chills or any other complaints. Time Seen by Provider: 07/23/17 00:00 Chief Complaint (Nursing): Abdominal Pain History Per: Patient History/Exam Limitations: no limitations Onset/Duration Of Symptoms: Hrs Current Symptoms Are (Timing): Still Present Radiation Of Pain To:: None Associated Symptoms: denies: Fever, Chills, Nausea, Vomiting, Diarrhea Exacerbating Factors: None Alleviating Factors: None Recent travel outside of the [place]: No Past Medical History Reviewed: Historical Data, Nursing Documentation, Vital Signs Vital Signs: Last Vital Signs Temp 98 F 07/22/17 23:52 Pulse 88 07/22/17 23:52 Resp 20 07/22/17 23:52 BP 105/74 07/22/17 23:52 Pulse Ox 99 07/23/17 01:08 - Medical History PMH: No Chronic Diseases - [facility] Procedures EXCISION OF ASCENDING COLON, ENDO, DIAGN (07/10/17) EXCISION OF RECTUM, ENDO, DIAGN (07/10/17) RESECTION OF RIGHT LARGE INTESTINE, OPEN APPROACH (07/10/17) Family History: States: No Known Family Hx - Social History Hx Alcohol Use: Yes Hx Substance Use: No - Immunization History Hx Tetanus Toxoid Vaccination: No Hx Influenza Vaccination: No Hx Pneumococcal Vaccination: No Review Of Systems Constitutional: Negative for: Fever, Chills Gastrointestinal: Positive for: Other (Active bleeding from colon resection surgical site). Negative for: Nausea, Vomiting, Abdominal Pain, Diarrhea Skin: Negative for: Rash Neurological: Negative for: Weakness, Numbness Physical Exam - Physical Exam Appears: Non-toxic, No Acute Distress Skin: Warm, Dry Head: Normacephalic Eye(s): bilateral: Normal Inspection Oral Mucosa: Moist Neck: Supple Chest: Symmetrical, No Tenderness Cardiovascular: Rhythm Regular Respiratory: No Decreased Breath Sounds, No Rales, No Rhonchi, No Wheezing Gastrointestinal/Abdominal: Soft, No Tenderness, Distention (Mild ), Other ( honorio in place w active oozing of bright red blood; ecchymosis around incision site) Extremity: Normal ROM Extremity: Bilateral: Normal Color And Temperature, Normal ROM Neurological/Psych: Oriented x3, Normal Speech, Normal Cognition Gait: Steady ED Course And Treatment - Laboratory Results Result Diagrams: 07/23/17 00:25 07/23/17 00:25 O2 Sat by Pulse Oximetry: 99 (RA) Pulse Ox Interpretation: Normal Progress Note: Ordered BBK, blood work, and urinalysis. Administered IV fluids , Zosyn, and Vancmycin 1 GM. pt was seen and examined by the surgical garment inspector and case discussed with dr little. Ok to dc home Disposition Discussed With .: Jacqueline Little Doctor Will See Patient In The: Office Counseled Patient/Family Regarding: Studies Performed, Diagnosis, Need For Followup, Rx Given - Disposition Referrals: Jacqueline Little MD [Staff Provider] - Disposition: HOME/ ROUTINE Disposition Time: 00:00 Condition: FAIR Prescriptions: Cephalexin [cephalexin] 500 mg PO QID #28 cap Instructions: Surgical Wound (DC), Wound Care (DC) Forms: [employer] (Indonesian) Print Language: CITIZEN OF [place] - Clinical Impression Clinical Impression: Encounter for postoperative wound check - Scribe Statement The provider has reviewed the documentation as recorded by the Scribe Lee Neff All medical record entries made by the Scribe were at my direction and personally dictated by me. I have reviewed the chart and agree that the record accurately reflects my personal performance of the history, physical exam, medical decision making, and the department course for this patient. I have also personally directed, reviewed, and agree with the discharge instructions and disposition.
[2017-07-23 00:29] LABS: BASO # 0.1 K/uL (0.0-0.2); BASO % 0.8 % (0.0-2.0); EOS # 0.2 K/uL (0.0-0.7); EOS % 1.1 % (0.0-4.0); LYMPH # 2.1 K/uL (1.0-4.3); LYMPH % 14.7 % (20.0-40.0); MEAN CELL VOLUME 83.2 fL (80.0-94.0); MEAN CORPUSCULAR HEMOGLOBIN 28.2 pg (27.0-31.0); MEAN CORPUSCULAR HGB CONC 33.9 g/dL (33.0-37.0); MEAN PLATELET VOLUME 7.2 fL (7.2-11.7); MONO # 1.3 K/uL (0.0-0.8); MONO % 8.9 % (0.0-10.0); NEUT # 10.7 K/uL (1.8-7.0); NEUT % 74.5 % (50.0-75.0); NRBC % 0.1 % (0.0-2.0); RBC 3.54 Mil/uL (4.40-5.90); RED CELL DISTRIBUTION WIDTH 13.5 % (11.5-14.5); WHITE BLOOD COUNT 14.4 K/uL (4.8-10.8)
[2017-07-23] MEDS ORDERED: Sodium Chloride 0.9% 1,000 ML IV SCH (00:30)
[2017-07-23] MEDS ORDERED: Piperacillin/Tazobact 3.375 gm 100 ML IVPB STA (00:35)
[2017-07-23 00:36] LABS: INR 1.3; PROTHROMBIN TIME 14.3 SECONDS (9.7-12.2)
[2017-07-23] MEDS ORDERED: Vancomycin 1 GM 1 GM/250 ML BAG IVPB SCH (00:45)
[2017-07-23 00:51] LABS: ALB/GLOB RATIO 0.7 (1.0-2.1); ALBUMIN 3.6 g/dL (3.5-5.0); ALT/SGPT 112 U/L (21-72); AST/SGOT 121 U/L (17-59); BLOOD UREA NITROGEN 10 mg/dL (9-20); CALCIUM 8.9 mg/dl (8.6-10.4); GFR AFRICAN-AMERICAN > 60; GFR NON-AFRICAN AMERICAN > 60
[2017-07-23] MEDS ORDERED: Piperacillin/Tazobact 3.375 gm 100 ML IVPB ONE (01:17)
[2017-07-23] MEDS ORDERED: Vancomycin 1 GM 1 GM/250 ML BAG IVPB STA (01:44)
[2017-07-23] MEDS ORDERED: Vancomycin 1 GM 1 GM/250 ML BAG IVPB ONE (01:48)
[2017-07-23 03:42] VITALS: BP 118/72; PULSE 80; O2SAT 98
== END 2017-07-23 03:41 | disposition home or self-care (01) ==
LOC: C.ER 23:38
DX: Z48.01 Encounter for change or removal of surgical wound dressing (principal)
CPT/HCPCS: 36415; 80053; 85025; 85610; 85730; 86850; 86900; 87040; 87070; 96361; 96365; 96367; 99284; J2543; J3370; J7040

== ENCOUNTER 2017-07-26 12:12 | Emergency (ER) | payer OTHER ==
[2017-07-26 13:09] VITALS: TEMP 97.7
--- NOTE | 2017-07-26 13:31 | C.PDOC ---
History Of Present Illness 56 y/o male presents to ED with c/o draining incision site worsening for 2 days with associated fever and chills. Patient is s/p appendix tumor removed and bowel resection [address] Little. Patient was suppose to follow up with Clinic. Patient was seen at ED 3 days ago for c/o drainage from the wound. Cultures were done and he was started on Keflex. WBC was 14 at that time. He had surgical evaluation and was advised to f.u with Dr. Little at office. Patient reports he became feverish 2 days ago which prompted visit to ED today. He reports normal po intake. Patient denies nausea, vomiting, abdominal pain or any other complaints at this time. Time Seen by Provider: 07/26/17 13:10 Chief Complaint (Nursing): Abdominal Pain History Per: Patient History/Exam Limitations: no limitations Onset/Duration Of Symptoms: Days Current Symptoms Are (Timing): Still Present Past Medical History Reviewed: Historical Data, Nursing Documentation, Vital Signs Vital Signs: Last Vital Signs Temp 97.7 F 07/26/17 12:50 Pulse 76 07/26/17 12:50 Resp 20 07/26/17 12:50 BP 139/89 07/26/17 12:50 Pulse Ox 100 07/26/17 13:40 - Medical History PMH: No Chronic Diseases Surgical History: No Surg Hx - [facility] Procedures EXCISION OF ASCENDING COLON, ENDO, DIAGN (07/10/17) EXCISION OF RECTUM, ENDO, DIAGN (07/10/17) RESECTION OF RIGHT LARGE INTESTINE, OPEN APPROACH (07/10/17) Family History: States: No Known Family Hx - Social History Hx Alcohol Use: No Hx Substance Use: No - Immunization History Hx Tetanus Toxoid Vaccination: No Hx Influenza Vaccination: Yes Hx Pneumococcal Vaccination: Yes Review Of Systems Constitutional: Positive for: Fever. Negative for: Chills Cardiovascular: Negative for: Chest Pain Gastrointestinal: Negative for: Nausea, Vomiting, Diarrhea Skin: Negative for: Rash Physical Exam - Physical Exam Appears: Non-toxic, No Acute Distress Skin: Warm, Dry, No Rash Head: Atraumatic, Normacephalic Eye(s): bilateral: Normal Inspection Oral Mucosa: Moist Neck: Normal ROM, Supple Cardiovascular: Rhythm Regular Respiratory: Normal Breath Sounds, No Rales, No Rhonchi, No Wheezing Gastrointestinal/Abdominal: Tenderness (Around wound incision ), No Guarding, No Rebound, Other (Vertical fresh incision to right of midline closed with honorio. Blood purulent discharge noted) Back: No CVA Tenderness Extremity: Normal ROM, Capillary Refill (<2 seconds) Neurological/Psych: Oriented x3, Normal Speech, Normal Cognition ED Course And Treatment - Laboratory Results Result Diagrams: 07/26/17 13:52 Lab Interpretation: No Acute Changes O2 Sat by Pulse Oximetry: 100 (RA) Pulse Ox Interpretation: Normal Progress Note: Patient was seen in the ED by surgery residents. Consultation with Dr Little. Patient to continue Keflex and she will follow up in the office later this week. Disposition Counseled Patient/Family Regarding: Studies Performed, Diagnosis, Need For Followup - Disposition Referrals: Jacqueline Little MD [Staff Provider] - Disposition: HOME/ ROUTINE Disposition Time: 14:48 Condition: STABLE Instructions: Surgical Wound (DC) Forms: [employer] (German) - Clinical Impression Clinical Impression: Encounter for postoperative wound check - Scribe Statement The provider has reviewed the documentation as recorded by the Scribdanni Cristobal All medical record entries made by the Scribe were at my direction and personally dictated by me. I have reviewed the chart and agree that the record accurately reflects my personal performance of the history, physical exam, medical decision making, and the department course for this patient. I have also personally directed, reviewed, and agree with the discharge instructions and disposition.
[2017-07-26 13:58] LABS: BASO # 0.1 K/uL (0.0-0.2); BASO % 1.3 % (0.0-2.0); EOS # 0.1 K/uL (0.0-0.7); EOS % 1.1 % (0.0-4.0); HEMOGLOBIN 11.3 g/dL (12.0-18.0); LYMPH # 2.1 K/uL (1.0-4.3); LYMPH % 22.3 % (20.0-40.0); MEAN CELL VOLUME 83.3 fL (80.0-94.0); MEAN CORPUSCULAR HEMOGLOBIN 28.2 pg (27.0-31.0); MEAN CORPUSCULAR HGB CONC 33.9 g/dL (33.0-37.0); MEAN PLATELET VOLUME 6.9 fL (7.2-11.7); MONO # 0.9 K/uL (0.0-0.8); MONO % 9.1 % (0.0-10.0); NEUT # 6.4 K/uL (1.8-7.0); NEUT % 66.2 % (50.0-75.0); RBC 4.01 Mil/uL (4.40-5.90); RED CELL DISTRIBUTION WIDTH 13.4 % (11.5-14.5); WHITE BLOOD COUNT 9.6 K/uL (4.8-10.8)
[2017-07-26 14:14] LABS: SQUAMOUS EPITHIAL 1 /hpf (0-5); URINE BACTERIA RARE (<OCC); URINE BILIRUBIN NEGATIVE (NEGATIVE); URINE BLOOD NEGATIVE (NEGATIVE); URINE CLARITY Clear (Clear); URINE COLOR Yellow (YELLOW); URINE GLUCOSE (UA) NORMAL (Normal); URINE HYALINE CAST 0-2 /lpf (0-2); URINE LEUKOCYTE ESTERASE NEG Leu/uL (Negative); URINE PROTEIN NEGATIVE (NEGATIVE); URINE UROBILINOGEN NORMAL mg/dL (0.2-1.0)
[2017-07-26 14:50] LABS: ALB/GLOB RATIO 0.7 (1.0-2.1); ALBUMIN 3.8 g/dL (3.5-5.0); ALT/SGPT 223 U/L (21-72); AST/SGOT 121 U/L (17-59); BLOOD UREA NITROGEN 11 mg/dL (9-20); CALCIUM 9.2 mg/dl (8.6-10.4); GFR AFRICAN-AMERICAN > 60; GFR NON-AFRICAN AMERICAN > 60
[2017-07-26 15:17] VITALS: BP 121/81; PULSE 73; RESP 16; O2SAT 99
== END 2017-07-26 15:17 | disposition home or self-care (01) ==
LOC: C.ER 12:12
DX: Z48.89 Encounter for other specified surgical aftercare (principal)

== ENCOUNTER 2017-08-20 08:48 | Emergency (ER) | payer OTHER ==
[2017-08-20] MEDS ORDERED: Iohexol 240 (50 ml) ONE (09:40)
[2017-08-20 09:42] LABS: BASO % 0.5 % (0.0-2.0); EOS # 0.2 K/uL (0.0-0.7); EOS % 2.5 % (0.0-4.0); HEMOGLOBIN 11.5 g/dL (12.0-18.0); LYMPH # 2.5 K/uL (1.0-4.3); LYMPH % 40.7 % (20.0-40.0); MEAN CELL VOLUME 83.7 fL (80.0-94.0); MEAN CORPUSCULAR HEMOGLOBIN 28.1 pg (27.0-31.0); MEAN CORPUSCULAR HGB CONC 33.5 g/dL (33.0-37.0); MONO # 0.5 K/uL (0.0-0.8); NEUT % 48.3 % (50.0-75.0); NRBC % 0.1 % (0.0-2.0); RBC 4.1 Mil/uL (4.40-5.90); RED CELL DISTRIBUTION WIDTH 14.6 % (11.5-14.5); WHITE BLOOD COUNT 6.2 K/uL (4.8-10.8)
[2017-08-20 09:48] LABS: SQUAMOUS EPITHIAL < 1 /hpf (0-5); URINE BILIRUBIN NEGATIVE (NEGATIVE); URINE BLOOD NEGATIVE (NEGATIVE); URINE CALCIUM OXALATE CRYSTALS FEW /hpf (<OCC); URINE CLARITY Clear (Clear); URINE COLOR Yellow (YELLOW); URINE GLUCOSE (UA) NORMAL (Normal); URINE LEUKOCYTE ESTERASE NEG Leu/uL (Negative); URINE PROTEIN NEGATIVE (NEGATIVE); URINE UROBILINOGEN NORMAL mg/dL (0.2-1.0)
[2017-08-20 09:59] LABS: ALB/GLOB RATIO 0.7 (1.0-2.1); ALBUMIN 3.9 g/dL (3.5-5.0); ALT/SGPT 39 U/L (21-72); AST/SGOT 39 U/L (17-59); BLOOD UREA NITROGEN 9 mg/dL (9-20); CALCIUM 9.2 mg/dl (8.6-10.4); GFR AFRICAN-AMERICAN > 60; GFR NON-AFRICAN AMERICAN > 60; LIPASE 310 U/L (23-300)
--- NOTE | 2017-08-20 10:47 | C.PDOC ---
History Of Present Illness [id number] male presents to ED for complaints of abdominal pain that began 3 days. 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 Patient states he experiences abdominal pain with deep breaths. Denies chest pain, SOB, vomiting, diarrhea, fever, or chills. Patient had recent work up for PE/DVT with negative studies. Time Seen by Provider: 08/20/17 09:07 Chief Complaint (Nursing): Abdominal Pain History Per: Patient History/Exam Limitations: no limitations Onset/Duration Of Symptoms: Days (3) Current Symptoms Are (Timing): Still Present Location Of Pain/Discomfort: Diffuse Radiation Of Pain To:: None Associated Symptoms: denies: Fever, Chills, Nausea, Vomiting, Diarrhea Exacerbating Factors: None Alleviating Factors: None Last Bowel Movement: Today Recent travel outside of the [place]: No Past Medical History Reviewed: Historical Data, Nursing Documentation, Vital Signs Vital Signs: Last Vital Signs Temp 98.4 F 08/20/17 12:34 Pulse 68 08/20/17 12:34 Resp 16 08/20/17 12:34 BP 122/82 08/20/17 12:34 Pulse Ox 100 08/20/17 13:09 - Medical History PMH: HTN Surgical History: Appendectomy - [facility] Procedures EXCISION OF ASCENDING COLON, ENDO, DIAGN (07/10/17) EXCISION OF RECTUM, ENDO, DIAGN (07/10/17) RESECTION OF RIGHT LARGE INTESTINE, OPEN APPROACH (07/10/17) Family History: States: Unknown Family Hx - Social History Hx Alcohol Use: No Hx Substance Use: No - Immunization History Hx Tetanus Toxoid Vaccination: No Hx Influenza Vaccination: Yes Hx Pneumococcal Vaccination: Yes Review Of Systems Except As Marked, All Systems Reviewed And Found Negative. Gastrointestinal: Positive for: Abdominal Pain Physical Exam - Physical Exam Appears: Well, Non-toxic, No Acute Distress Skin: Normal Color, Warm, Dry Head: Atraumatic, Normacephalic Eye(s): bilateral: Normal Inspection, PERRL, EOMI Nose: Normal Oral Mucosa: Moist Chest: Symmetrical, No Tenderness Cardiovascular: Rhythm Regular Respiratory: Normal Breath Sounds, No Decreased Breath Sounds, No Rales, No Rhonchi, No Wheezing Gastrointestinal/Abdominal: Bowel Sounds, Soft, Tenderness (Lateral ), Other ( Surgical scar noted ) Extremity: Normal ROM, Tenderness (bilateral midaxillary line), No Deformity Extremity: Bilateral: Normal Color And Temperature, Normal ROM Neurological/Psych: Oriented x3, Normal Speech, Normal Cognition Gait: Steady ED Course And Treatment - Laboratory Results Result Diagrams: 08/20/17 09:37 08/20/17 09:37 O2 Sat by Pulse Oximetry: 100 (RA) Pulse Ox Interpretation: Normal - CT Scan/US CT Abdomen/Pelvis Other Rad Studies (CT/US): Read By Radiologist, Radiology Report Reviewed CT/US Interpretation: PROCEDURE: CT Abdomen and Pelvis with intravenous contrast. HISTORY: Abdominal pain. COMPARISON: 07/10/2017. TECHNIQUE: Multiple contiguous axial images were performed through the abdomen and pelvis with the use of intravenous contrast. Subsequently, sagittal and coronal reformatted images were obtained. Radiation dose: Total exam DLP = 216 MGy- cm. This CT exam was performed using one or more of the following dose reduction techniques: Automated exposure control, adjustment of the mA and/or kV according to patient size, and/or use of iterative reconstruction technique. FINDINGS: LOWER THORAX: 2.2 x 2.5 centimeter focal area of nodular consolidation/low-attenuation with a punctate foci of central air and peripheral postcontrast enhancement within the posterior aspect of the left lower lobe. This is of uncertain clinical etiology.This may represent focal lobulated pleural fluid collection containing air versus infiltrate versus atelectasis versus additional etiology. Post treatment followup may be helpful to exclude underlying lesion. Post treatment followup may be helpful to exclude underlying lesion. Additional mild lingular atelectasis. LIVER: Unremarkable. No gross lesion or ductal dilatation. GALLBLADDER AND BILE DUCTS : Unremarkable. PANCREAS: Unremarkable. No gross lesion or ductal dilatation. SPLEEN: Unremarkable. ADRENALS: Unremarkable. No mass. KIDNEYS AND URETERS: 1.2 centimeter low-attenuation lesion seen within upper to midpole of the left kidney demonstrating a Hounsfield unit attenuation of 22, indeterminate. Additional midpole hypodensity measuring 6 millimeters, too small to adequately characterize. Additional lower pole hypodensity measuring 6 millimeters also too small to adequately characterize. 1 centimeter low- attenuation lesion in the midpole of the right kidney, too small to adequately characterize. VASCULATURE: Unremarkable. No aortic aneurysm. BOWEL: Emanating from the lateral aspect of the cecal apex as demonstrated on series 3 images 91 through 109 as well as coronal sequences series 601, images 42 through 49 there is a curvilinear enhancing structure/collection measuring up to 10 millimeters in width on series 601, image 44 containing peripheral enhancement and a few punctate foci of internal air. This is of uncertain clinical etiology and may represent an acute appendicitis with adjacent fluid and enhancement and or microperforation versus postsurgical abscess and or seromatous collection versus phlegmonous collection versus additional etiology. Associated prominent thickening of the cecum with adjacent fat stranding and fluid suggestive for acute infectious and or inflammatory changes and or additional etiology. A somewhat elongated linear focal area of stranding and or collection is noted more posteriorly within the cecum which may be postsurgical change. Clinical correlation. Underdistended and or mildly thickened sigmoid colon and rectum. APPENDIX: As above. PERITONEUM: Unremarkable. No free fluid. No free air. LYMPH NODES: Shotty inguinal and para-aortic lymph nodes. Shotty mesenteric lymph nodes. BLADDER: Unremarkable. REPRODUCTIVE: Heterogeneous and prominent prostate measuring 5.5 x 4.4 centimeters containing internal calcifications. Prominent seminal vesicles. BONES: Degenerative changes in the spine and shoulders. OTHER FINDINGS: None. IMPRESSION: 1. Emanating from the lateral aspect of the cecal apex as demonstrated on series 3 images 91 through 109 as well as coronal sequences series 601, images 42 through 49 there is a curvilinear enhancing structure/collection measuring up to 10 millimeters in width on series 601, image 44 containing peripheral enhancement and a few punctate foci of internal air. This is of uncertain clinical etiology and may represent an acute appendicitis with adjacent fluid and enhancement and or microperforation versus postsurgical abscess and or seromatous collection versus phlegmonous collection versus additional etiology. Associated prominent thickening of the cecum with adjacent fat stranding and fluid suggestive for acute infectious and or inflammatory changes and or additional etiology. A somewhat elongated linear focal area of stranding and or collection is noted more posteriorly within the cecum which may be postsurgical change. Clinical correlation. 2. Underdistended and or mildly thickened sigmoid colon and rectum. 3. 2.2 x 2.5 centimeter focal area of nodular consolidation/low-attenuation with a punctate foci of central air and peripheral postcontrast enhancement within the posterior aspect of the left lower lobe. This is of uncertain clinical etiology. This may represent focal lobulated pleural fluid collection containing air versus infiltrate versus atelectasis versus additional etiology. Post treatment followup may be helpful to exclude underlying lesion. 4. Heterogeneous and prominent prostate measuring 5.5 x 4.4 centimeters containing internal calcifications. Prominent seminal vesicles. Medical Decision Making Medical Decision Making: Administered Toradol. Ordered blood work, urinalysis, and Abdomen&Pelvis CT. 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 campus president saw patient and discussed results with Dr. Little and eileen to discharge home to follow up as outpatient. Disposition Discussed With Dr.: Jacqueline Little Counseled Patient/Family Regarding: Studies Performed, Diagnosis, Need For Followup, Rx Given - Disposition Referrals: Jacqueline Little MD [Staff Provider] - Disposition: HOME/ ROUTINE Disposition Time: 13:11 Condition: STABLE Additional Instructions: follow up with Dr. Little in 2 days call to make an appointment take pain medication as needed return to ER if symptoms worsens or progress Prescriptions: Naproxen [Naprosyn] 500 mg PO BID PRN #16 tab PRN Reason: Pain, Moderate (4-7) Instructions: Acute Abdomen (Belly Pain), Adult (DC) Forms: [employer] (Swedish), Gen Discharge Inst Ethiopian Print Language: KAZAKH - Clinical Impression Clinical Impression: Abdominal pain - Scribe Statement The provider has reviewed the documentation as recorded by the Scribe Lee Neff All medical record entries made by the Scribe were at my direction and personally dictated by me. I have reviewed the chart and agree that the record accurately reflects my personal performance of the history, physical exam, medical decision making, and the department course for this patient. I have also personally directed, reviewed, and agree with the discharge instructions and disposition.
[2017-08-20] MEDS ORDERED: Iodixanol 320 mg/ml 150 ml Bottle IV ONE (10:51)
--- NOTE | 2017-08-20 11:52 | CT ---
PROCEDURE: CT Abdomen and Pelvis with intravenous contrast HISTORY: Abdominal pain COMPARISON: 07/10/2017 TECHNIQUE: Multiple contiguous axial images were performed through the abdomen and pelvis with the use of intravenous contrast. Subsequently, sagittal and coronal reformatted images were obtained. Radiation dose: Total exam DLP = 216 MGy-cm. This CT exam was performed using one or more of the following dose reduction techniques: Automated exposure control, adjustment of the mA and/or kV according to patient size, and/or use of iterative reconstruction technique. FINDINGS: LOWER THORAX: 2.2 x 2.5 centimeter focal area of nodular consolidation/low-attenuation with a punctate foci of central air and peripheral postcontrast enhancement within the posterior aspect of the left lower lobe. This is of uncertain clinical etiology.This may represent focal lobulated pleural fluid collection containing air versus infiltrate versus atelectasis versus additional etiology. Post treatment followup may be helpful to exclude underlying lesion. Post treatment followup may be helpful to exclude underlying lesion. Additional mild lingular atelectasis. LIVER: Unremarkable. No gross lesion or ductal dilatation. GALLBLADDER AND BILE DUCTS: Unremarkable. PANCREAS: Unremarkable. No gross lesion or ductal dilatation. SPLEEN: Unremarkable. ADRENALS: Unremarkable. No mass. KIDNEYS AND URETERS: 1.2 centimeter low-attenuation lesion seen within upper to midpole of the left kidney demonstrating a Hounsfield unit attenuation of 22, indeterminate. Additional midpole hypodensity measuring 6 millimeters, too small to adequately characterize. Additional lower pole hypodensity measuring 6 millimeters also too small to adequately characterize. 1 centimeter low-attenuation lesion in the midpole of the right kidney, too small to adequately characterize. VASCULATURE: Unremarkable. No aortic aneurysm. BOWEL: Emanating from the lateral aspect of the cecal apex as demonstrated on series 3 images 91 through 109 as well as coronal sequences series 601, images 42 through 49 there is a curvilinear enhancing structure/collection measuring up to 10 millimeters in width on series 601, image 44 containing peripheral enhancement and a few punctate foci of internal air. This is of uncertain clinical etiology and may represent an acute appendicitis with adjacent fluid and enhancement and or microperforation versus postsurgical abscess and or seromatous collection versus phlegmonous collection versus additional etiology. Associated prominent thickening of the cecum with adjacent fat stranding and fluid suggestive for acute infectious and or inflammatory changes and or additional etiology. A somewhat elongated linear focal area of stranding and or collection is noted more posteriorly within the cecum which may be postsurgical change. Clinical correlation. Underdistended and or mildly thickened sigmoid colon and rectum. APPENDIX: As above. PERITONEUM: Unremarkable. No free fluid. No free air. LYMPH NODES: Shotty inguinal and para-aortic lymph nodes. Shotty mesenteric lymph nodes. BLADDER: Unremarkable. REPRODUCTIVE: Heterogeneous and prominent prostate measuring 5.5 x 4.4 centimeters containing internal calcifications. Prominent seminal vesicles. BONES: Degenerative changes in the spine and shoulders. OTHER FINDINGS: None. IMPRESSION: 1. Emanating from the lateral aspect of the cecal apex as demonstrated on series 3 images 91 through 109 as well as coronal sequences series 601, images 42 through 49 there is a curvilinear enhancing structure/collection measuring up to 10 millimeters in width on series 601, image 44 containing peripheral enhancement and a few punctate foci of internal air. This is of uncertain clinical etiology and may represent an acute appendicitis with adjacent fluid and enhancement and or microperforation versus postsurgical abscess and or seromatous collection versus phlegmonous collection versus additional etiology. Associated prominent thickening of the cecum with adjacent fat stranding and fluid suggestive for acute infectious and or inflammatory changes and or additional etiology. A somewhat elongated linear focal area of stranding and or collection is noted more posteriorly within the cecum which may be postsurgical change. Clinical correlation. 2. Underdistended and or mildly thickened sigmoid colon and rectum. 3. 2.2 x 2.5 centimeter focal area of nodular consolidation/low-attenuation with a punctate foci of central air and peripheral postcontrast enhancement within the posterior aspect of the left lower lobe. This is of uncertain clinical etiology. This may represent focal lobulated pleural fluid collection containing air versus infiltrate versus atelectasis versus additional etiology. Post treatment followup may be helpful to exclude underlying lesion. 4. Heterogeneous and prominent prostate measuring 5.5 x 4.4 centimeters containing internal calcifications. Prominent seminal vesicles.
[2017-08-20 12:36] VITALS: BP 122/82; PULSE 68; RESP 16; TEMP 98.4
[2017-08-20 13:04] VITALS: O2SAT 100
--- NOTE | 2017-08-20 14:37 | CP.PCM.CON ---
History of Present Illness - History of Present Illness History of Present Illness: Consult note: Dr. Little 56M w/ PMHx signficiant for gastritis appendiceal mass s/p appendectomy, R. Hemicolectomy and ileocecetomy presents to [facility] ED with abdominal pain during deep inspiration. Pain is localized to the LLQ around well healed operative incision. Patient is almost one month post op from a ileocecectomy for a mass in that region. Pathology from mass came back benign. He denies any nausea, vomiting, he has been tolerating diet and states his last bowel movement was this morning. Of note he was recently admitted to [facility] earlier this month for similar symptoms for workup for PE which was negative PMH: gastritis PSH: R. Hieu ileocecectomy w/ primary anastamosis, R knee op Allergies: NKDA FamilyHx: non-contributory SocialHx: denies ETOH recreational drug use 12 point review of systems conducted, and negative unless otherwise noted above Review of Systems - Review of Systems All systems: reviewed and no additional remarkable complaints except - Constitutional Constitutional: As Per HPI Past Patient History - Past Medical History & Family History Past Medical History?: Yes - Past Social History Smoking Status: Never Smoked - CARDIAC Hx Hypertension: Yes - PULMONARY Hx Respiratory Disorders: No - NEUROLOGICAL Hx Neurological Disorder: No - HEENT Hx HEENT Problems: No - RENAL Hx Chronic Kidney Disease: No - ENDOCRINE/METABOLIC Hx Endocrine Disorders: No - HEMATOLOGICAL/ONCOLOGICAL Hx Human Immunodeficiency Virus (HIV): No - INTEGUMENTARY Hx Dermatological Problems: No - MUSCULOSKELETAL/RHEUMATOLOGICAL Hx Falls: Yes - GASTROINTESTINAL Hx Gastrointestinal Disorders: Yes Hx Bowel Surgery: Yes Other/Comment: appendectomy - GENITOURINARY/GYNECOLOGICAL Hx Genitourinary Disorders: No - PSYCHIATRIC Hx Substance Use: No - SURGICAL HISTORY Hx Appendectomy: Yes - ANESTHESIA Hx Anesthesia: Yes Hx Anesthesia Reactions: No Hx Malignant Hyperthermia: No Meds Home Medications: Home Medication List Medication Instructions Recorded Confirmed Type Naproxen [Naprosyn] 500 mg PO BID PRN #16 tab 08/20/17 Rx Allergies/Adverse Reactions: Allergies Allergy/AdvReac Type Severity Reaction Status Date / Time No Known Allergies Allergy Verified 08/08/17 18:07 Physical Exam - Constitutional Appears: Non-toxic, No Acute Distress - Head Exam Head Exam: ATRAUMATIC - Eye Exam Eye Exam: EOMI. absent: Scleral icterus - ENT Exam ENT Exam: Mucous Membranes Moist - Respiratory Exam Respiratory Exam: NORMAL BREATHING PATTERN. absent: Accessory Muscle Use, Respiratory Distress - Cardiovascular Exam Cardiovascular Exam: +S1, +S2. absent: Bradycardia, Tachycardia - GI/Abdominal Exam GI & Abdominal Exam: Soft, Tenderness (tender to palpation around LLQ incision) . absent: Rebound, Rigid Additional comments: incision well healed, clean dry and intact. No signs of erythema or discharge - Extremities Exam Extremities exam: Positive for: normal inspection. Negative for: calf tenderness - Back Exam Back exam: absent: CVA tenderness (L), CVA tenderness (R) - Neurological Exam Neurological exam: Alert, Oriented x3 - Psychiatric Exam Psychiatric exam: Normal Affect - Skin Skin Exam: Intact, Warm Results - Vital Signs Recent Vital Signs: Last Vital Signs Temp 98.4 F 08/20/17 12:34 Pulse 68 08/20/17 12:34 Resp 16 08/20/17 12:34 BP 122/82 08/20/17 12:34 Pulse Ox 100 08/20/17 13:13 - Labs Result Diagrams: 08/20/17 09:37 08/20/17 09:37 Labs: Laboratory Results - last 24 hr 08/20/17 08/20/17 08/20/17 09:37 09:37 09:37 WBC 6.2 RBC 4.10 L Hgb 11.5 L Hct 34.4 L MCV 83.7 MCH 28.1 MCHC 33.5 RDW 14.6 H Plt Count 388 D MPV 7.0 L Neut % (Auto) 48.3 L Lymph % (Auto) 40.7 H [place] % (Auto) 8.0 Eos % (Auto) 2.5 Baso % (Auto) 0.5 Neut # (Auto) 3.0 Lymph # (Auto) 2.5 [place] # (Auto) 0.5 Eos # (Auto) 0.2 Baso # (Auto) 0.0 Sodium 142 Potassium 4.1 Chloride 104 Carbon Dioxide 23 Anion Gap 20 BUN 9 Creatinine 0.9 Est GFR ( Amer) > 60 Est GFR (Non-Af Amer) > 60 Random Glucose 125 H Calcium 9.2 Total Bilirubin 0.4 AST 39 ALT 39 Alkaline Phosphatase 108 Total Protein 9.1 H Albumin 3.9 Globulin 5.2 H Albumin/Globulin Ratio 0.7 L Lipase 310 H Urine Color Yellow Urine Clarity Clear Urine pH 5.0 Ur Specific [place] 1.017 Urine Protein Negative Urine Glucose (UA) Normal Urine Ketones Negative Urine Blood Negative Urine Nitrate Negative Urine Bilirubin Negative Urine Urobilinogen Normal Ur Leukocyte Esterase Neg Urine WBC (Auto) 1 Urine RBC (Auto) < 1 Ur Squamous Epith Cells < 1 Calcium Oxalate Crystal Few H Assessment & Plan - Assessment and Plan (Free Text) Assessment: 56M s/p ileocecetomy [id number] CT of ABD reviewed: normal post op changes in the abdomen Plan: - recently admitted and negative for PE - Incisions clean, dry, intact with no signs of infection - encourage ambulation, physical activity, and incentive spirometer use - can follow up with Dr. Little next week in office - cleared for discharge from a surgical standpoint - discussed w/ Dr. Little surgical attending
== END 2017-08-20 13:20 | disposition home or self-care (01) ==
LOC: C.ER 08:48
DX: R10.32 Left lower quadrant pain (principal)
CPT/HCPCS: 74177; 80053; 81001; 83690; 85025; 96372; 99285; J1885; Q9967

== ENCOUNTER 2017-10-07 17:23 | Emergency (ER) | payer SELFPAY ==
[2017-10-07 17:32] VITALS: BMI 22.1
[2017-10-07] MEDS ORDERED: Sodium Chloride 0.9% 500 ML IV ONE ×2 (18:22→18:35)
--- NOTE | 2017-10-07 18:30 | C.PDOC ---
History Of Present Illness 57yo male, with history of appendiceal mass, s/p appendectomy, R. Hemicolectomy and ileocecectomy, comes to ER with complaints of abdominal pain, distention and a tugging sensation to his incision site, for the past 4 weeks. Patient reports he was instructed to not go to work after his surgery but he did return. He also reports a headache, right sided neck stiffness and states on 10/03 he was dizzy and had an episode of vomiting. He does report chills but denies any fever, diarrhea, constipation, hematemesis, hematochezia. He also denies any chest pain, shortness of breath or weakness. He has no other medical complaints. Time Seen by Provider: 10/07/17 17:46 Chief Complaint (Nursing): Abdominal Pain History Per: Patient History/Exam Limitations: no limitations Onset/Duration Of Symptoms: Persistent Current Symptoms Are (Timing): Still Present Location Of Pain/Discomfort: Diffuse Quality Of Discomfort: "Pain" Associated Symptoms: Chills, Vomiting. denies: Fever, Diarrhea, Back Pain, Chest Pain Additional History Per: Patient Past Medical History Reviewed: Historical Data, Nursing Documentation, Vital Signs Vital Signs: Last Vital Signs Temp 98.7 F 10/07/17 17:33 Pulse 62 10/07/17 17:33 Resp 18 10/07/17 17:33 BP 148/96 H 10/07/17 17:33 Pulse Ox 100 10/07/17 18:52 - Medical History PMH: HTN Denies: HIV, Chronic Kidney Disease Surgical History: Appendectomy (07/20) Other Surgeries: R. Hemicolectomy and ileocecectomy - [facility] Procedures EXCISION OF ASCENDING COLON, ENDO, DIAGN (07/10/17) EXCISION OF RECTUM, ENDO, DIAGN (07/10/17) RESECTION OF RIGHT LARGE INTESTINE, OPEN APPROACH (07/10/17) Family History: States: Unknown Family Hx - Social History Hx Alcohol Use: No Hx Substance Use: No - Immunization History Hx Tetanus Toxoid Vaccination: No Hx Influenza Vaccination: Yes Hx Pneumococcal Vaccination: Yes Review Of Systems Except As Marked, All Systems Reviewed And Found Negative. Constitutional: Positive for: Chills. Negative for: Fever Cardiovascular: Negative for: Chest Pain Respiratory: Negative for: Shortness of Breath Gastrointestinal: Positive for: Vomiting, Abdominal Pain. Negative for: Diarrhea, Constipation, Melena, Hematochezia, Hematemesis Neurological: Negative for: Weakness, Numbness Physical Exam - Physical Exam Appears: Non-toxic, No Acute Distress Skin: Warm, Dry Head: Atraumatic, Normacephalic Eye(s): bilateral: Normal Inspection Neck: Normal ROM, Supple Chest: Symmetrical Cardiovascular: Rhythm Regular Respiratory: Normal Breath Sounds Gastrointestinal/Abdominal: No Soft, Tenderness (tenderness noted to entire abdomen and over incision site), Distention, No Guarding, No Rebound Extremity: Normal ROM, No Pedal Edema Neurological/Psych: Oriented x3 ED Course And Treatment - Laboratory Results Result Diagrams: 10/07/17 18:32 10/07/17 18:32 O2 Sat by Pulse Oximetry: 100 (RA) Pulse Ox Interpretation: Normal Medical Decision Making Medical Decision Making: Impression: Abdominal pain s/p appendectomy, R. Hemicolectomy and ileocecetomy in July 2017 Plan: -- Labs -- IV Fluids -- XR Obstructive series 1820 Case discussed with residential installer. [address] Patient signed over to Dr. Quan pending ER workup. Disposition Counseled Patient/Family Regarding: Studies Performed - Disposition Disposition Time: 18:56 Condition: STABLE Forms: [facility] (French) - POA Present On Arrival: None - Clinical Impression Clinical Impression: Abdominal bloating, Abdominal discomfort - Scribe Statement The provider has reviewed the documentation as recorded by the Harpal Harper Provider Attestation: All medical record entries made by the Harpal were at my direction and personally dictated by me. I have reviewed the chart and agree that the record accurately reflects my personal performance of the history, physical exam, medical decision making, and the department course for this patient. I have also personally directed, reviewed, and agree with the discharge instructions and disposition. Physician Patient Turnover Patient Signed Over To: Evelina Quna Handoff Comments: Pending imaging and surgery eval
[2017-10-07 18:37] LABS: BASO % 0.5 % (0.0-2.0); EOS # 0.2 K/uL (0.0-0.7); EOS % 3.7 % (0.0-4.0); HEMOGLOBIN 12.6 g/dL (12.0-18.0); LYMPH % 46.4 % (20.0-40.0); MEAN CORPUSCULAR HEMOGLOBIN 28.1 pg (27.0-31.0); MEAN CORPUSCULAR HGB CONC 33.8 g/dL (33.0-37.0); MEAN PLATELET VOLUME 7.6 fL (7.2-11.7); MONO # 0.6 K/uL (0.0-0.8); MONO % 9.2 % (0.0-10.0); NEUT # 2.6 K/uL (1.8-7.0); NEUT % 40.2 % (50.0-75.0); NRBC % 0.1 % (0.0-2.0); RBC 4.5 Mil/uL (4.40-5.90); RED CELL DISTRIBUTION WIDTH 15.2 % (11.5-14.5); WHITE BLOOD COUNT 6.4 K/uL (4.8-10.8)
[2017-10-07 18:48] LABS: INR 1.1; PROTHROMBIN TIME 11.7 SECONDS (9.7-12.2)
[2017-10-07 18:52] LABS: ALB/GLOB RATIO 1.1 (1.0-2.1); ALBUMIN 4.5 g/dL (3.5-5.0); ALT/SGPT 40 U/L (21-72); AST/SGOT 29 U/L (17-59); BLOOD UREA NITROGEN 12 mg/dL (9-20); CALCIUM 9.1 mg/dl (8.6-10.4); GFR AFRICAN-AMERICAN > 60; GFR NON-AFRICAN AMERICAN > 60; LIPASE 204 U/L (23-300)
[2017-10-07] MEDS ORDERED: Iodixanol 320 MG/ML 100 ML BOTTLE IV ONE (19:35)
[2017-10-07 20:03] VITALS: TEMP 97.7
[2017-10-07 21:42] VITALS: BP 157/90; PULSE 56; RESP 18; O2SAT 100
--- NOTE | 2017-10-08 11:14 | CT ---
PROCEDURE: CT Abdomen and Pelvis with Oral contrast. HISTORY: Abdominal pain s/p surgery 07/10/17/ COMPARISON: Comparison made with prior CT scan abdomen pelvis 10/07/2017 TECHNIQUE: Contiguous helical/transaxial sections of the abdomen pelvis performed following intravenous injection of approximately 100 cc Visipaque 320 contrast material. Additional 2D sagittal and coronal reformats generated. Radiation dose: Total exam DLP = 260.78 mGy-cm. This CT exam was performed using one or more of the following dose reduction techniques: Automated exposure control, adjustment of the mA and/or kV according to patient size, and/or use of iterative reconstruction technique. FINDINGS: LOWER THORAX: Heart size is within range of normal. No significant pericardial effusion. There is a small hiatal hernia with slight wall thickening of the distal esophagus which may be due to protrusion gastric mucosa however possibility of esophagitis or other intrinsic/invasive wall lesion not excluded. Re- demonstrated is localized pleural thickening posterolateral aspect left posterior sulcus with adjacent parenchymal scarring. Minor atelectasis and or scarring changes also seen within the middle lobe and lingular regions. No evidence of effusion or basilar pneumothorax. LIVER: Liver demonstrates normal size measuring approximately 14.4 cm in CC dimension. Mild diffuse fatty hepatic infiltration. Portal and splenic veins are opacified. No obvious hepatic mass or collection. GALLBLADDER AND BILE DUCTS: Cholelithiasis. Gallbladder is contracted PANCREAS: Unremarkable. No mass. No ductal dilatation. SPLEEN: Unremarkable. No splenomegaly. ADRENALS: Unremarkable. KIDNEYS AND URETERS: Unremarkable. No stone or hydronephrosis. No evidence of nephrolithiasis or hydronephrosis. Re- demonstrated is a poorly delineated presumed cyst anteromedial aspect midpole left kidney. Questionable tiny 2.7 mm cortical cyst anterior aspect lower pole right kidney. There is an approximately 10 mm cyst within the cortex posteromedial aspect upper pole left kidney. There is also a small proximally 5.3 mm cyst posteromedial cortex mid pole left kidney and suspected tiny exophytic cyst anteromedial cortex mid to lower pole left kidney. BLADDER: Urinary bladder is distended. Minor wall thickening could be due to muscular hypertrophy. REPRODUCTIVE: Prostate gland appears enlarged measuring approximately 4.6 cm in transverse dimension. Prostatic calcifications are present. Changes likely due to BPH however correlation with PSA recommended. APPENDIX: Appendix is not seen with certainty and presumably has been resected however clinical correlation with surgical history recommended. . BOWEL: Previously noted localized thickening of the wall of the cecum with surrounding postoperative granulation tissue scar and/or phlegmon and adjacent stranding of the mesenteries improved compared the prior exam. Clinical correlation with surgical history. No evidence of acute mechanical bowel obstruction. Moderate amount of stool seen throughout the distal ascending and transverse colon consistent with fecal retention/constipation. PERITONEUM: The the No gross free intraperitoneal air. No drainable fluid collections are identified. LYMPH NODES: Unremarkable. No enlarged lymph nodes. VASCULATURE: Unremarkable. No aortic aneurysm. BONES: Note again made of a small bone island or osteoma within left aspect of the sacrum OTHER FINDINGS: None. IMPRESSION: Interval improvement previously noted localized thickening of the wall of the cecum with surrounding postoperative granulation tissue scar and/or phlegmon and adjacent stranding of the mesenteries improved compared the prior exam. Clinical correlation with surgical history. Cholelithiasis. Enlarged prostate gland likely due to BPH however correlation with PSA recommended. Multiple renal cysts as above. Follow-up ultrasound could be performed if indicated the patricia
--- NOTE | 2017-10-08 16:52 | RAD ---
PROCEDURE: Radiographs of the chest and abdomen (obstructive series) HISTORY: Abdominal pain COMPARISON: Study was read in conjunction with concurrent CT scan abdomen pelvis TECHNIQUE: AP radiograph of the chest, with upright and supine radiographs of the abdomen. FINDINGS: CHEST: Lungs: Clear. Cardiovascular: Normal size heart. No pulmonary vascular congestion. Pleura: No pleural fluid. No pneumothorax. Other findings: None. ABDOMEN AND PELVIS: Bowel: Unremarkable bowel gas pattern. No evidence of mechanical obstruction. Moderate amount of stool seen within the large bowel Free air: None. Bones: Unremarkable. Other findings: Radiopaque suture material seen in the right lower quadrant of the abdomen along the wall of the cecum IMPRESSION: Unremarkable radiographs of chest and abdomen. No evidence of mechanical bowel obstruction. . Moderate amount of stool seen within the large bowel. Radiopaque chain suture material right lower quadrant of the abdomen
== END 2017-10-07 21:43 | disposition home or self-care (01) ==
LOC: C.ER 17:23
DX: R14.0 Abdominal distension (gaseous) (principal); R10.9 Unspecified abdominal pain
CPT/HCPCS: 74022; 74177; 80053; 83690; 85025; 85610; 85730; 99285; J7040; Q9967

== ENCOUNTER 2018-04-23 12:03 | Emergency (ER) | payer OTHER | END 2018-04-23 16:28 | disposition home or self-care (01) | LOC: C.ER 12:03 ==

== ENCOUNTER 2018-05-20 10:44 | Outpatient (CLI) | payer SELFPAY | END 2018-05-20 10:45 | disposition home or self-care (01) | LOC: C.MRIC 10:44 | DX: R93.2 Abnormal findings on diagnostic imaging of liver and biliary tract (principal); K80.20 Calculus of gallbladder without cholecystitis without obstruction ==

== ENCOUNTER 2018-05-30 06:42 | Day surgery (SDC) | payer SELFPAY ==
[2018-05-30 07:05] VITALS: BMI 23.3
[2018-05-30 07:30] VITALS: RESP 16; TEMP 98; O2SAT 100
--- NOTE | 2018-05-30 07:51 | CP.SDSHP ---
Same Day Surgery H & P - History Proposed Procedure: colonoscopy Pre-Op Diagnosis: rectal bleeding. RLQ pain - Previous Medical/Surgical History Cardiac: Other (hypercholesterolemia, ) Misc: Other (colon adenoma) Previous Surgical History: Partial right colectomy for large adenoma - Allergies Allergies: Allergies No Known Allergies Allergy (Verified 04/23/18 12:07) - Physical Exam Vital Signs: Vital Signs 05/30/18 07:12 Temperature 98 F Pulse Rate 18 L Respiratory 16 Rate Blood Pressure 116/88 O2 Sat by Pulse 100 Oximetry Mental Status: Alert & Oriented x3 Neuro: WNL Heart: WNL Lungs: WNL GI: WNL - Impression Impression: rectal bleeding. RLQ pain Pt. Evaluated Today:Candidate for Anesthesia & Procedure: Yes - Date & Time Date: 05/30/18 Time: 07:50 Short Stay Discharge - Short Stay Discharge Admitting Diagnosis/Reason for Visit: RT LOWER QUADRANT PAIN / GASTROINTESTINAL BLEEDING Disposition: HOME/ ROUTINE
[2018-05-30] MEDS ORDERED: Propofol 10 mg/ml Inj (20 ML) ONE (08:03)
[2018-05-30 08:05] VITALS: PULSE 90
[2018-05-30 08:53] VITALS: BP 111/63
== END 2018-05-30 09:20 | disposition home or self-care (01) ==
LOC: C.ENDO 06:42
PROVIDERS: ATTEND Internal Medicine Gastroenterology
DX: K62.1 Rectal polyp (principal); R10.31 Right lower quadrant pain; R93.2 Abnormal findings on diagnostic imaging of liver and biliary tract; K64.8 Other hemorrhoids
CPT/HCPCS: 45384; 88305; J2704